=== PATIENT | male | born 1980 | race Caucasian/White ===

== ENCOUNTER 2017-12-04 09:53 | Emergency (ER) | payer BC, SELFPAY ==
[2017-12-04 09:54] VITALS: BP 153/91; PULSE 71; RESP 16; TEMP 36.4; O2SAT 97; BMI 26.1
--- NOTE | 2017-12-04 10:03 | RAD_ITS ---
STUDY: X-RAY - LEFT SHOULDER REASON FOR EXAM: Male, 37 years old. Slip and fall, injury T pain TECHNIQUE: 2 view(s) of the shoulder. COMPARISON: None. FINDINGS: There is anterior dislocation of the glenohumeral articulation. Normal acromioclavicular joint. Normal acromion. Normal humeral head and visualized proximal humerus. The soft tissue structures are unremarkable. Normal visualized pulmonary apex. RAD/Shoulder min 2 Views IMPRESSION: Anterior dislocation of the humerus head Electronically Signed: Nash Rowe MD at 10:40 EDT Tel , Service support ,
[2017-12-04] MEDS: Ondansetron 4 MG/2 ML Vial IV (10:13)
[2017-12-04] MEDS: Morphine 4 MG/ML Syringe IV (10:14)
[2017-12-04 10:36] VITALS: BP 125/81; BP 129/82; BP 132/85; BP 154/106; PULSE 57; PULSE 62; PULSE 64; PULSE 68; PULSE 71; PULSE 85; RESP 13; RESP 16; RESP 19; RESP 24; O2SAT 100; O2SAT 95; O2SAT 99
--- NOTE | 2017-12-04 10:50 | RAD_ITS ---
STUDY: X-RAY - LEFT SHOULDER REASON FOR EXAM: Male, 37 years old. Post reduction TECHNIQUE: 2 view(s) of the shoulder. COMPARISON: None. FINDINGS: Normal glenohumeral articulation. Normal acromioclavicular joint. Normal acromion. Hill-Sachs deformity of the humerus head. The soft tissue structures are unremarkable. Normal visualized pulmonary apex. RAD/Shoulder min 2 Views IMPRESSION: Reduced dislocation. Electronically Signed: Nash Rowe MD at 11:05 EDT Tel , Service support ,
[2017-12-04 10:55] VITALS: BP 120/95; PULSE 63; RESP 14; O2SAT 100; O2SAT 99
--- NOTE | 2017-12-04 10:56 | ED.VISSUMM ---
- ER Visit Summary Date of Service: 12/04/17 Chief Complaint: [Left shoulder injury] History of Present Illness: The patient is a 37 M [presents to the emergency department with an injury to his left shoulder that occurred when he slipped and fell going [place] at home. Patient is right-hand dominant. He denies any other injuries.] Physical Examination: [HEENT-PERRLA, EOMI. Cranial nerves II through XII grossly intact. TMs clear. Mucous membranes moist. No adenopathy. Cardiovascular-regular rate and rhythm without murmur or ectopy Lungs-clear to auscultation, chest wall stable without crepitus or subcu emphysema Abdomen-normoactive bowel sounds, soft, nontender, no rebound or rigidity, no peritoneal signs. Extremities-intact ?4, normal range of motion, normal pulses. Left shoulder-patient has obvious sulcus sign and decreased ability to move the shoulder at the glenohumeral joint. Patient neurovascular intact distally. Test Results: [X-rays of the left shoulder showed an anterior dislocation of the humeral head.] Emergency Department Course and Treatment: [Patient was consented for procedural sedation. Patient was given propofol a total of 200 mg with good sedation and the shoulder was easily reduced with some gentle traction. Postreduction x-ray showed good reduction of the shoulder joint.] Treatment Plan: [Patient will be placed in a sling and referred to orthopedics for follow-up] Disposition: [Discharged home in stable condition] Impression: [Left shoulder dislocation-reduced] This note was generated with [employer] [place] dictation software. It may contain incorrect words, spelling, and punctuation that were not noted in review of the chart prior to signing ED Disposition - Plan for ED Patient: Chief Complaint: Upper Extremity Injury Referrals: Care Physician,No Primary [Primary Care Provider] -
[2017-12-04] MEDS: Propofol 200 MG/20 ML Vial 100 MG IV BOLUS (10:57)
--- NOTE | 2017-12-04 10:59 | DCINST.ED_ITS ---
ED Disposition - Plan for ED Patient: Chief Complaint: Upper Extremity Injury Instructions: ED Dislocation Shoulder Redu Prescriptions: Hydrocodone/Acetaminophen [[place] 5-325 Tablet] 1 - 2 ea PO 4X/DAY PRN PRN 3 Days #12 tab PRN Reason: Pain Referrals: Care Physician,No Primary [Primary Care Provider] - Yuniel Gzuman MD [STAFF PHYSICIAN] - 3-5 Days
[2017-12-04 11:13] VITALS: BP 125/72; PULSE 69; RESP 15; O2SAT 98
== END 2017-12-04 11:14 | disposition home or self-care (01) ==
PROVIDERS: Emergency Provider Emergency Medicine
DX: S43.015A Anterior dislocation of left humerus, initial encounter (principal); W01.0XXA Fall on same level from slipping, tripping and stumbling without subsequent striking against object, initial encounter; Y93.9 Activity, unspecified; Y92.009 Unspecified place in unspecified non-institutional (private) residence as the place of occurrence of the external cause; Y99.9 Unspecified external cause status
CPT/HCPCS: 23650; 73030; 96374; 96375; 99285; J7030; A4216; J2405

== ENCOUNTER → 2023-07-12 | Outpatient (CLI) | payer MEDICAID, SELFPAY ==
[2023-07-12 15:49] LABS: Absolute Lymphocyte Count 1.93 X10^3/uL (0.83-4.51); Absolute Neutrophil Count 2.6 X10^3/uL (2.0-7.7); Basophil# 0.04 X10^3/uL; Basophil% 0.7 % (0-1); Eosinophil# 0.12 X10^3/uL; Eosinophils% 2.2 % (0-5); Hematocrit 45.3 % (40-54); Hemoglobin 14.7 g/dL (13.0-16.5); Lymphocyte # 1.93 X10^3/ul (0.83-4.51); Lymphocyte % 36.1 % (19-41); Mean Corp Hgb Conc 32.5 g/dL (32-36); Mean Corpuscular Hgb 30.4 pg (27.0-32.0); Mean Corpuscular Volume 93.6 fL (80-94); Mean Platelet Vol. 10.5 fl (6.2-12.0); Monocyte# 0.63 X10^3/uL; Monocyte% 11.8 % (0-10); NRBC Flagged by Analyzer 0 % (0-5); Neutrophil % 48.6 % (47-70); Platelet Count 288 K/mm3 (150-450); RBC Distribution Width CV 13.4 % (11.6-14.6); RBC Distribution Width SD 46.9 fl (35.1-43.9); Red Blood Count 4.84 M/mm3 (4.6-6.2); White Blood Count 5.4 K/mm3 (4.4-11.0)
[2023-07-12 16:42] LABS: ALB/GLOB Ratio 1.1 RATIO (0.9-2.4); AST(SGOT) 22 U/L (15-37); Alanine Aminotransfer ALT/SGPT 36 U/L (16-61); Albumin, Serum 3.9 g/dL (3.2-5.0); Alkaline Phosphatase 72 U/L (45-117); Anion Gap 2 (5-15); BUN 14 mg/dL (7-18); BUN/Creat Ratio 15.9 RATIO (10-20); Calcium,Total 9.2 mg/dL (8.5-10.1); Chloride 108 mmol/L (98-107); Cholesterol 247 mg/dL (200); Creatinine, Serum 0.88 mg/dL (0.70-1.30); EST Glomerular Filtration Rate 100 mL/min (>60); Est Glom Filt Rate - Afr Amer 121 mL/min (>60); Globulin 3.6 g/dL (2.2-4.2); Glucose 87 mg/dL (74-106); High Density Lipoprotein 66 mg/dL; Potassium 4.3 mmol/L (3.5-5.1); Protein, Total 7.5 g/dL (6.4-8.2); Sodium Level 138 mmol/L (136-145); Triglycerides 76 mg/dL; Very Low Density Lipoprotein 15 mg/dL (5-40)
== END | disposition home or self-care (01) ==
LOC: BIMLAB 12:21
PROVIDERS: PCP Internal Medicine; Referring Provider Internal Medicine; Visit Provider Internal Medicine
DX: Z00.00 Encounter for general adult medical examination without abnormal findings (principal)
CPT/HCPCS: 84153; 36415; 80053; 80061; 85025; G0103

== ENCOUNTER → 2023-07-25 | Outpatient (CLI) | payer MEDICAID, SELFPAY ==
--- NOTE | 2023-07-25 08:21 | RAD_ITS ---
STUDY: X-RAY - PELVIS AND RIGHT HIP REASON FOR EXAM: Male, 43 years old. Right groin pain. TECHNIQUE: 3 views of the pelvis and hip. COMPARISON: None. FINDINGS: There is a non-specific bowel gas pattern. Normal visualized soft tissue structures. Normal bilateral iliac wings, sacroiliac joints and visualized sacrum. Normal bilateral superior and inferior pubic rami. Normal pubic symphysis. Normal bilateral ischial tuberosities. Incidentally noted is mild lumbosacral spondylosis. Normal visualized femoral head. Normal acetabulum. Normal hip joint. RAD/HIP, UNI W/ Pelvis 2-3 Views IMPRESSION: Mild lumbosacral spondylosis. No other abnormality. Electronically Signed: Vahid Hubbard MD at 13:25 EST ,
--- NOTE | 2023-07-25 10:19 | NEURO ---
NCS and/or EMG Patient Report Ordering Doctor: Nic Samuels DATE OF SERVICE: 07/25/23 Clinical Summary: This is a 43 year old male presenting with symptoms of bilateral hand numbness. This EMG/NCS was performed to evaluate for right and left carpal tunnel syndrome. Nerve Conduction Studies Summary: The median-D2 SNAP distal latency was prolonged bilaterally. Otherwise, nerve conductions were within normal ranges in the bilateral upper extremities. Needle Examination Summary: Needle examination of select muscles of the bilateral upper extremities was normal. Impression: There is electrodiagnostic evidence of the following - 1) Mild, bilateral median mononeuropathies at the wrists (carpal tunnel syndrome), with sensory fiber demyelination Multi Select Codes Neurology Neurology Interp Codes: 83215-16 Musc test done w/n test comp (interp) (2) and 83934-29 Nrv cndj test 13/> studies (interp)
== END | disposition home or self-care (01) ==
LOC: PSN 08:20
PROVIDERS: PCP Internal Medicine; Referring Provider Internal Medicine; Visit Provider Internal Medicine
DX: R10.31 Right lower quadrant pain (principal); G56.03 Carpal tunnel syndrome, bilateral upper limbs
CPT/HCPCS: 73502; 95886; 95913

== ENCOUNTER → 2024-07-09 | Outpatient (CLI) | payer MEDICAID, SELFPAY ==
[2024-07-09 10:46] LABS: Absolute Lymphocyte Count 1.55 X10^3/uL (0.83-4.51); Absolute Neutrophil Count 3.8 X10^3/uL (2.0-7.7); Basophil# 0.03 X10^3/uL; Basophil% 0.5 % (0-1); Eosinophil# 0.13 X10^3/uL; Eosinophils% 2.1 % (0-5); Hematocrit 48.6 % (40-54); Hemoglobin 15.8 g/dL (13.0-16.5); Lymphocyte # 1.55 X10^3/ul (0.83-4.51); Lymphocyte % 24.8 % (19-41); Mean Corp Hgb Conc 32.5 g/dL (32-36); Mean Corpuscular Hgb 30.9 pg (27.0-32.0); Mean Corpuscular Volume 95.1 fL (80-94); Monocyte# 0.71 X10^3/uL; Monocyte% 11.3 % (0-10); NRBC Flagged by Analyzer 0 % (0-5); Neutrophil # 3.79 X10^3/uL (2.7-7.7); Neutrophil % 60.5 % (47-70); Platelet Count 283 K/mm3 (150-450); RBC Distribution Width SD 45.9 fl (35.1-43.9); Red Blood Count 5.11 M/mm3 (4.6-6.2); White Blood Count 6.3 K/mm3 (4.4-11.0)
[2024-07-09 11:09] LABS: ALB/GLOB Ratio 1.1 RATIO (0.9-2.4); AST(SGOT) 14 U/L (15-37); Alanine Aminotransfer ALT/SGPT 23 U/L (16-61); Alkaline Phosphatase 80 U/L (45-117); Anion Gap 6 (5-15); BUN 22 mg/dL (7-18); BUN/Creat Ratio 24.6 RATIO (10-20); Calcium,Total 9.2 mg/dL (8.5-10.1); Chloride 104 mmol/L (98-107); Cholesterol 267 mg/dL (200); EST Glomerular Filtration Rate 97 mL/min (>60); Est Glom Filt Rate - Afr Amer 118 mL/min (>60); Globulin 3.8 g/dL (2.2-4.2); Glucose 67 mg/dL (74-106); High Density Lipoprotein 69 mg/dL; Potassium 4.2 mmol/L (3.5-5.1); Protein, Total 7.8 g/dL (6.4-8.2); Sodium Level 137 mmol/L (136-145); Triglycerides 122 mg/dL; Very Low Density Lipoprotein 24 mg/dL (5-40)
[2024-07-14 08:11] LABS: Testosterone, % Free 1.72 % (1.50-4.20); Testosterone, Free 8.36 ng/dL (5.00-21.00); Testosterone, Total 486 ng/dL (264-916)
== END | disposition home or self-care (01) ==
LOC: LAB 09:22
PROVIDERS: PCP Internal Medicine; Referring Provider Internal Medicine; Visit Provider Internal Medicine
DX: Z00.00 Encounter for general adult medical examination without abnormal findings (principal); N52.9 Male erectile dysfunction, unspecified
CPT/HCPCS: 36415; 80053; 80061; 84402; 84403; 85025

== ENCOUNTER 2024-07-21 09:38 | Day surgery (SDC) | payer MEDICAID, SELFPAY ==
[2024-07-21] VITALS (8 sets, daily range): BP systolic 93–119; BP diastolic 75–84; PULSE 65–78; RESP 16–17; TEMP 36.1–36.4; O2SAT 96–100; BMI 27.8
--- NOTE | 2024-07-21 10:15 | PCM.PRE.AN2 ---
ASA Classification* ASA Classification ASA Classification: 2 Assessment & Plan Anesthesia* Anesthesia Assessment Anesthesia Assessment: Discussed sedation and/or anesthesia options, risks, benefits, and alternatives with patient/parents/legal guardian/POA. Questions invited. The patient/parents/legal guardian/POA seems to understand and agrees to proceed with anesthesia plan. Reviewed the physical assessment, medical history, allergy history and patient home medications list prior to surgery/procedure/anesthetic and documented any changes. Performed airway and anesthesia risk assessments. Anesthesia Type Anesthesia Type: MAC Anesthesia Focused Assessment* Temperature: 97 F Pulse Rate: 65 Blood Pressure: 114/81 Respiratory Rate: 17 Pulse Ox: 100 Airway Assessment Mouth opens: >3 cm Mallampati Score: II Focused Labs Anesthesia Preop lab: CBC WBC 6.3 K/mm3 (4.4-11.0) 07/09/24 09:24 RBC 5.11 M/mm3 (4.6-6.2) 07/09/24 09:24 Hgb 15.8 g/dL (13.0-16.5) 07/09/24 09:24 Hct 48.6 % (40-54) 07/09/24 09:24 Plt Count 283 K/mm3 (150-450) 07/09/24 09:24 CHEMISTRY Potassium 4.2 mmol/L (3.5-5.1) 07/09/24 09:24 Sodium 137 mmol/L (136-145) 07/09/24 09:24 BUN 22 mg/dL (7-18) H 07/09/24 09:24 Creatinine 0.90 mg/dL (0.70-1.30) 07/09/24 09:24 Glucose 67 mg/dL (74-106) L 07/09/24 09:24 COAG Pre-Assessment Diagnosis/Proposed Procedure Planned Operative Procedure(s): RIGHT OPEN CARPAL TUNNEL RELEASE Anesthesia History Anesthesia History - product/industry consultant: Anesthesia History - product/industry consultant Hx Hospitalization No 07/13/24 09:24 Any Problems With Anesthesia No 07/13/24 09:24 Cholinesterase deficiency No 07/13/24 09:24 You/Your Family Experience No 07/13/24 09:24 fever (hyperthermia) with Relationship Recent Exposure to Contagious No 07/21/24 10:08 Disease Does patient have nerve No 07/13/24 09:24 stimulator Patient instructed to have device shut off --Does patient have Pacemaker No 07/21/24 10:08 or ICD? When Was Last Pacemaker Check QUESTION #4 FULL TEXT: You/Your Family Experience fever (hyperthermia) with Anesthesia Last Oral Intake Last Oral intake: Last Oral Intake NPO since 00:00 07/21/24 10:08 Meds taken in AM with sips of No 07/21/24 10:08 water? Meds patient instructed to take am of surgery PONV PONV - product/industry consultant: PONV - product/industry consultant Female No 07/13/24 09:24 HX of Motion Sickness Yes 07/13/24 09:24 HX of N/V After Surgery No 07/13/24 09:24 Non-Smoker Yes 07/13/24 09:24 Duration of Surgery greater No 07/13/24 09:24 than 60 minutes Number of Risk Factors 2 07/13/24 09:24 PONV Score Moderate Risk 07/13/24 09:24 Height & Weight Height & Weight: Anesthesia: Height & Weight Height 6 ft 07/21/24 10:08 Weight: 93 kg 07/21/24 10:08 Body Mass Index (BMI) 27.8 07/21/24 10:08 Respiratory Assessment Respiratory Assessment - product/industry consultant: Respiratory Tract Infection Hx - product/industry consultant Hx Respiratory Tract Infection No 07/13/24 09:24 STOP Sleep Apnea STOP Sleep Apnea - product/industry consultant: STOP Sleep Apnea - product/industry consultant Hx Hypertension No 07/13/24 09:24 Hx Sleep Apnea No 07/13/24 09:24 CPAP BIPAP Do you snore loudly (louder No 07/13/24 09:24 than talking or can be heard Do you often feel tired/ Yes 07/13/24 09:24 fatigued/ sleepy during daytime? Has anyone observed you stop No 07/13/24 09:24 breathing during sleep? STOP Results Negative 07/13/24 09:24 QUESTION #5 FULL TEXT : Do you snore loudly (louder than talking or can be heard through closed doors)? 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 Specify any problems Hx of Preganancy in last 3 N/A 07/13/24 09:24 Months Nurse Filling Out Transfusion DSCHRIBER 07/13/24 09:24 & Questions: Date: 07/13/24 07/13/24 09:24 Time: 09:26 07/13/24 09:24 Patient unable to answer at this time (ie. confused, unrespo /Reproduction History /Reproductive History - product/industry consultant: /Reproductive Hx- product/industry consultant Hx Now No 07/13/24 09:24 Gestational Age (in weeks): EDC: Hx Hx Para Hx Section SAB No 07/13/24 09:24 Active Medications Active Medications: Current Medications Generic Name Dose Route Start Last Admin Trade Name Freq PRN Reason Stop Dose Admin Cefazolin Sodium 2 gm/ N/A 20 mls @ 400 mls/hr 07/21/24 11:15 IV 07/21/24 11:17 PREOP ONE PFSH Medical History Loss of hearing Depression Anxiety Marijuana use Alcohol use Restless legs Back pain History of pain when walking Former smoker Anal or rectal pain Colon cancer screening Preventative health care Right groin pain Bilateral carpal tunnel syndrome Scoliosis Seasonal allergies Home Medications ?Medication ?Instructions ?Recorded ?Last Taken ?Type sertraline 50 mg tablet 50 mg PO QDAY #30 tabs 07/09/24 07/18/24 Rx ibuprofen 200 mg tablet (Advil) 400 mg PO Q8H PRN pain 07/13/24 Unknown History sildenafil 25 mg tablet (Viagra) 25 mg PO QDAY PRN sexual activity 07/14/24 Unknown Rx #10 tabs Allergy/AdvReac Type Severity Reaction Status Date / Time poison seth extract Allergy Severe Rash Verified 07/21/24 10:02 Surgical History H/O Spinal surgery History of vasectomy Social History adopted: No household members: significant other number of children: 1 current occupational status: employed 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 pets and animals: Yes pets and animals: cat(s), dog(s) and fish sexually active: Yes Smoking Status: Former smoker quit date: 08/04/08 Tobacco: How many years used: 10 alcohol intake: current alcohol intake frequency: a few times a week Alcohol type: beer, wine and hard liquor substance use type: marijuana caffeine: Yes (2-3) Type: coffee what type of physical activity do you participate in: weight training and other details: LABOR frequency: 3-4 times per week seatbelt use: always do you feel safe at home: Yes Review of Systems (Anesthesia) ROS Narrative System reviewed and no additional complaints, except as documented.
--- NOTE | 2024-07-21 11:00 | HP.PCM_ITS ---
History and Physical Date of Admission: 07/21/24 [facility] [address] [place] [address] OFFICE VISIT Date of Service: 06/15/24 MR#: [id number] Acct: [id number] Patient: ANABEL MORTENSEN Rep #: [id number] : 1980 Provider: Dr. Abdiel Douglas DO Age/Sex: 44/M Location: [facility] Status: Signed Intake Vital Signs 02/05/2412:26 Height 6 ft Weight: 209 lb 8 oz BMI 28.4 BP 124/80 H Blood Pressure Location Lt brachial Position Sitting Respiration 16 Pulse 67 Pulse Source Monitor Temp 97.6 F L Temp Source Temporal Pulse Oximetry (%) 97 Oxygen Delivery Method room air Intake Visit Reasons: right wrist Is patient in pain?: Yes Allergies poison seth extract Allergy (Severe, Verified 06/15/24 09:42) Rash Medications ?Medication ?Instructions ?Recorded ?Confirmed ?Type tadalafil 5 mg tablet 5 mg PO DAILY PRN sexual activity 02/05/24 06/15/24 Rx #12 tabs PFSH Medical History Anal or rectal pain Colon cancer screening Preventative health care Right groin pain Bilateral carpal tunnel syndrome Scoliosis Seasonal allergies Surgical History History of vasectomy Social History Smoking Status: Former smoker quit date: 08/04/08 alcohol intake: current alcohol intake frequency: a few times a week Alcohol type: beer, wine and hard liquor substance use type: does not use what type of physical activity do you participate in: weight training and other details: LABOR frequency: 3-4 times per week seatbelt use: always do you feel safe at home: Yes HPI HPI Details: Patient was informed that today's visit charges, even if billed to insurance may still be the patient's responsibility to pay. ANABEL MORTENSEN, is a 44 M who presents to the office today via telephone: Patient would like to proceed with open carpal tunnel release symptoms have not improved he is actually having quite a bit of pain in his right wrist after the injection , that he has not experienced in the past, that has not improved he denies any redness fevers or chills. 06/05/[address] Carmona: here today for bilateral carpal tunnel syndrome. The patient has had now [address] Douglas. Last time was in January. had it prior in the right, it worked but wore off. wants to try injection on both sides. has to pain houses. RHD. all fingers go numb, mostly at night wakes up at night. everything tingly. positive flick sign. feels clumsy. Patient received bilateral carpal tunnel injections and was scheduled for a endoscopic carpal tunnel release. 01/29/2024 office visit: 44 year old M here today for bilateral hand complaints Last office visit August 28, 2023 patient was having carpal tunnel symptoms he did have an EMG which demonstrated bilateral carpal tunnel mild. At that time he had already tried 3 months of bracing at night we discussed nerve glide exercises anti-inflammatories injections or carpal tunnel release, he wished to proceed with ibuprofen 600 mg 3 times daily and nerve glide exercises at that time. Patient is here today requesting BL hand injections. 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 He states that the pain has started to wake him up at night along with he has noticed more numbness and tingling. He states that his right hand is worse. Exam Details: Details:: Exam was limited due to phone visit with no video. 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 Wrist benefits of surgery were reviewed including risk of bleeding infection nerve artery tissue damage need for further surgery continued pain incisional hypersensitivity continued symptoms and pillar pain for up to several months after surgery. He was instructed about the postoperative restrictions claus ghtbearing ,he was instructed to hold NSAIDs for 7 days prior to surgery tentative surgery date July 21, 2024. I do not want to know why he is having such continued severe pain after his last injection. I have examined the patient and the H&P has been reviewed. There are no clinical changes since date of exam.
[2024-07-21] MEDS: Cefazolin 2 GM in Syringe IV (11:15)
[2024-07-21] MEDS: Bupiv/Epi 0.25% 30 ML Vial (11:42)
--- NOTE | 2024-07-21 11:55 | PCM.POST.ANE ---
Anesthesia: Postop Eval I Current Vital Signs Temperature: 97.6 F Pulse Rate: 68 Blood Pressure: 110/75 Respiratory Rate: 16 Pulse Ox: 97 Oxygen Delivery Method: Room Air Assessment Airway patent: Yes Spontaneous unlabored respirations: Yes Mental status: Awake and Calm nausea: No Vomiting: No Anesthesia Complication: No Fluid Hydration Crystalloid volume administer (ml): 30 Total IV fluid infused: 30 Progress Note Anesthesia document: Postop Eval 1 completed: Yes
--- NOTE | 2024-07-21 11:56 | OP.PCM_ITS ---
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 [employer] Vehicle Operator: Adriel Moeller Tasks completed by nurse first aid: Opening & closing Type of Anesthesia: Local and MAC RN Documented Start/Stop Times: Operation Date: 07/21/24 11:15 Case Time Into Pre-Op 07/21/24 09:50 Out of Pre-Op 07/21/24 11:10 Anesthesia Start 07/21/24 11:14 Into Room 07/21/24 11:14 Procedure Start 07/21/24 11:33 Procedure End 07/21/24 11:48 Anesthesia End 07/21/24 11:50 Out of Room 07/21/24 11:50 Into Recovery Procedure Start Time: 11:33 Procedure Stop Time: 11:48 Select all DRAINS/GRAFTS/IMPLANTS that apply: None Estimated Blood Loss: 0 Specimen collected: No Description of surgery: Preoperative diagnosis; right carpal tunnel syndrome Postoperative diagnosis; same Procedure: Right open carpal tunnel release Anesthesia: Local with MAC Tourniquet time; 10 minutes 250 mm Hg Complications: None Indication for procedure; This is a 44-year-old male with long-standing symptoms consistent with carpal tunnel syndrome the patient did have electrodiagnostic evidence of this and has failed conservative treatment. Risks benefits and alternatives were reviewed including risks of bleeding infection nerve artery tissue damage need for further surgery and continued pain and symptoms, hypersensitivity to scar and Pillar pain. Procedure; The patient was met in the preoperative holding area the operative extremity was identified by both patient and physician and was marked the patient was met by anesthesia and brought back to the operating room and transferred to the operating table in the supine position. Anesthesia was started. A well-padded tourniquet was placed on the operative upper extremity. The patient was prepped and draped in the usual sterile fashion. A timeout was called to ensure the proper patient procedure and extremity were being contemplated. 0.5 percent lidocaine with epinephrine was injected into the incisional area. An Esmarch was used to exsanguinate the extremity. The tourniquet was inflated to 250 mmHg. A midline incision was made with a 15 blade scalpel between the thenar and hypothenar eminence. This was carried down through the skin and subcutaneous tissue. Joe retractors were then used, a deep blade scalpel was used to make a deep incision in the palmar aponeurosis. The joe retractors were then placed deep to this and the transverse carpal ligament was identified a perforation was made with a scalpel and a Littler scissors were used to complete the release of the transverse carpal ligament distally under direct visualization with the tips facing ulnarly until the perivascular fat was reached. Then turning our attention proximally using a tension slide technique the proximal extent of the transverse carpal ligament was released . There was noted to be significant thickening and hypertrophy of the transverse carpal ligament. The wound was thoroughly irrigated and was closed with 4-0 nylon vertical mattress stitches. Dressing was applied in the form of xeroform 4 x 4, web roll and an tomasa wrap. Tourniquet was let down there is no intraoperative complications patient tolerated the procedure well and was transferred to the PACU. All counts were correct. Surgical Findings: Hypertrophied transverse carpal ligament Complications Complications: No
--- NOTE | 2024-07-21 11:57 | DCINST_ITS ---
Discharge Instructions Diet Discharge Diet: No restrictions Dressing / Incision Call your doctor if you observe: Shortness of breath and Chest pain Additional Dressing/Incision Instructions:: Ice and elevate operative extremity next 72 hours. Keep dressing on clean and dry for 48 hours then may remove and allow warm soapy water to rinse over incision but do not submerge until sutures are out. Then apply bandaid over incision and change daily. encourage finger range of motion. Not lift more than 1/2 pound. Minimize narcotic use only as needed and directed, may use OTC NSAID and Tylenol to supplement/substitute for pain control. Follow Up Care Please Follow Up With: Abdiel Douglas DO When: 2 weeks Test Results: Test results from this visit will be discussed in further detail at your follow- up appointment, if applicable. Discharge Plan Admission Primary Reason for Your Visit: Right carpal tunnel release Attending Provider: Abdiel Douglas Primary Care Provider: Nic Samuels Instructions Print Language: [place] Discharge Orders/Prescriptions Prescriptions: New oxycodone 5 mg tablet 5 - 10 mg PO Q4H PRN (Reason: pain) 3 Days Qty: 10 0RF Continued sertraline 50 mg tablet 50 mg PO QDAY Qty: 30 1RF Rx Instructions: take 0.5 tablets daily for 14 days then take 1 tablet daily ibuprofen [Advil] 200 mg tablet 400 mg PO Q8H PRN (Reason: pain) sildenafil [Viagra] 25 mg tablet 25 mg PO QDAY PRN (Reason: sexual activity) Qty: 10 0RF Rx Instructions: administer 30 minutes to 4 hours before activity Referrals / Follow Up: Nic Samuels MD [Primary Care Provider] - Disposition Disposition (needs filled in before D/C Order can be placed): Home, Self Care
--- NOTE | 2024-07-21 12:42 | POSTOPAN2_ITS ---
Anesthesia Postop Eval I Sum Postop Eval Completion status Anesthesia document: Postop Eval 1 completed: Yes Anesthesia Postop Eval I Summary Anesthesia Postop Eval I Summary: Anesthesia Postop Eval I: Assessment Summary Airway patent Yes 07/21/24 11:56 APPLICATION DEVELOPMENT CONSULTANT.MARGIEOBBrunilda Spontaneous unlabored Yes 07/21/24 11:56 APPLICATION DEVELOPMENT CONSULTANT.JENNIFER respirations Mental status Awake,Calm 07/21/24 11:56 APPLICATION DEVELOPMENT CONSULTANT.JENNIFER nausea No 07/21/24 11:56 APPLICATION DEVELOPMENT CONSULTANT.JENNIFER Vomiting No 07/21/24 11:56 APPLICATION DEVELOPMENT CONSULTANT.JENNIFER Anesthesia Postop Eval I: Fluid Summary Crystalloid volume administer 30 07/21/24 11:56 APPLICATION DEVELOPMENT CONSULTANT.MARGIEOBY (ml) Colloids volume administered ( ml) Blood Product volume administered (ml) Total IV fluid infused 30 07/21/24 11:56 APPLICATION DEVELOPMENT CONSULTANT.JENNIFER Anesthesia Postop Eval I: Summary Notes Anesthesia Complication No 07/21/24 11:56 APPLICATION DEVELOPMENT CONSULTANT.JENNIFER Anesthesia Complication Comment: Post-operative progress note Anesthesia: Postop Eval II Evaluation Mental status: Awake Pain Level: 0 nausea: No Vomiting: No
--- NOTE | 2024-07-21 12:42 | PCM.POSTANE2 ---
Anesthesia Postop Eval I Sum Postop Eval Completion status Anesthesia document: Postop Eval 1 completed: Yes Anesthesia Postop Eval I Summary Anesthesia Postop Eval I Summary: Anesthesia Postop Eval I: Assessment Summary Airway patent Yes 07/21/24 11:56 RAILROAD SUPERVISOR OF [email or web address] Spontaneous unlabored Yes 07/21/24 11:56 RAILROAD SUPERVISOR [employer] [email or web address] respirations Mental status Awake,Calm 07/21/24 11:56 RAILROAD SUPERVISOR [employer] ENGINES.JENNIFER nausea No 07/21/24 11:56 RAILROAD SUPERVISOR [email or web address].[email or web address] Vomiting No 07/21/24 11:56 RAILROAD SUPERVISOR OF [email or web address].[email or web address] Anesthesia Postop Eval I: Fluid Summary Crystalloid volume administer 30 07/21/24 11:56 RAILROAD SUPERVISOR OF ENGINES.[email or web address] (ml) Colloids volume administered ( ml) Blood Product volume administered (ml) Total IV fluid infused 30 07/21/24 11:56 RAILROAD SUPERVISOR [employer] ENGINES.[email or web address] Anesthesia Postop Eval I: Summary Notes Anesthesia Complication No 07/21/24 11:56 RAILROAD SUPERVISOR OF ENGINES.[email or web address] Anesthesia Complication Comment: Post-operative progress note Anesthesia: Postop Eval II Evaluation Mental status: Awake Pain Level: 0 nausea: No Vomiting: No
== END 2024-07-21 12:35 | disposition home or self-care (01) ==
LOC: SDC 09:38 → AC 11:05
PROVIDERS: PCP Internal Medicine; Referring Provider Orthopaedic Surgery; Visit Provider Orthopaedic Surgery
PROC: (CPT 64721; principal; 2024-07-21 11:00)
DX: G56.03 Carpal tunnel syndrome, bilateral upper limbs (principal); F41.9 Anxiety disorder, unspecified; F32.A Depression, unspecified; Z87.891 Personal history of nicotine dependence; Z79.899 Other long term (current) drug therapy
CPT/HCPCS: 64721; 01810; A4216; J2405

== ENCOUNTER 2024-09-15 11:31 | Day surgery (SDC) | payer MEDICAID, SELFPAY ==
[2024-09-15] VITALS (8 sets, daily range): BP systolic 103–137; BP diastolic 76–100; PULSE 62–79; RESP 16–18; TEMP 36.2–37.1; O2SAT 95–100; BMI 27.5
--- NOTE | 2024-09-15 12:25 | PCM.PRE.AN2 ---
ASA Classification* ASA Classification ASA Classification: 2 Assessment & Plan Anesthesia* Anesthesia Assessment Anesthesia Assessment: Discussed sedation and/or anesthesia options, risks, benefits, and alternatives with patient/parents/legal guardian/POA. Questions invited. The patient/parents/legal guardian/POA seems to understand and agrees to proceed with anesthesia plan. Reviewed the physical assessment, medical history, allergy history and patient home medications list prior to surgery/procedure/anesthetic and documented any changes. Performed airway and anesthesia risk assessments. Anesthesia Type Anesthesia Type: MAC History Source History Obtained from:: Patient and Chart Anesthesia Focused Assessment* Temperature: 97.7 F Pulse Rate: 62 Blood Pressure: 137/84 Respiratory Rate: 16 Pulse Ox: 100 Oxygen Delivery Method: Room Air Airway Assessment Mouth opens: >3 cm Mallampati Score: III Teeth Condition: Intact (Pt has a ring in the upper gums.) Neck Range of motion (ROM): Limited ROM Focused Labs Anesthesia Preop lab: CBC WBC 6.3 K/mm3 (4.4-11.0) 07/09/24 09:24 07/09/24 RBC 5.11 M/mm3 (4.6-6.2) 07/09/24 09:24 07/09/24 Hgb 15.8 g/dL (13.0-16.5) 07/09/24 09:24 07/09/24 Hct 48.6 % (40-54) 07/09/24 09:24 07/09/24 Plt Count 283 K/mm3 (150-450) 07/09/24 09:24 07/09/24 CHEMISTRY Potassium 4.2 mmol/L (3.5-5.1) 07/09/24 09:24 07/09/24 Sodium 137 mmol/L (136-145) 07/09/24 09:24 07/09/24 BUN 22 mg/dL (7-18) H 07/09/24 09:24 07/09/24 Creatinine 0.90 mg/dL (0.70-1.30) 07/09/24 09:24 07/09/24 Glucose 67 mg/dL (74-106) L 07/09/24 09:24 07/09/24 COAG Pre-Assessment Diagnosis/Proposed Procedure Planned Operative Procedure(s): COLONOSCOPY Anesthesia History 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 When Was Last Pacemaker Check QUESTION #4 FULL TEXT: You/Your Family Experience fever (hyperthermia) with Anesthesia Last Oral Intake Last Oral intake: Last Oral Intake NPO since :09/15/24 11:51 Meds taken in AM with sips of No 09/15/24 11:51 water? Meds patient instructed to take am of surgery Any additional information?: Yes NPO since: : (Patient Gatorade at 9:30 AM.) PONV PONV - sales performance analyst: PONV - sales performance analyst Female No 09/10/24 13:42 HX of Motion Sickness Yes 09/10/24 13:42 HX of N/V After Surgery No 09/10/24 13:42 Non-Smoker Yes 09/10/24 13:42 Duration of Surgery greater No 09/10/24 13:42 than 60 minutes Number of Risk Factors 2 09/10/24 13:42 PONV Score Moderate Risk 09/10/24 13:42 Height & Weight Height & Weight: Anesthesia: Height & Weight Height 6 ft 09/15/24 11:51 Weight: 92 kg 09/15/24 11:51 Body Mass Index (BMI) 27.5 09/15/24 11:51 Respiratory Assessment Respiratory Assessment - sales performance analyst: Respiratory Tract Infection Hx - sales performance analyst Hx Respiratory Tract Infection No 09/10/24 13:42 STOP Sleep Apnea STOP Sleep Apnea - sales performance analyst: STOP Sleep Apnea - sales performance analyst Hx Hypertension No 09/10/24 13:42 Hx Sleep Apnea No 09/10/24 13:42 CPAP BIPAP Do you snore loudly (louder No 09/10/24 13:42 than talking or can be heard Do you often feel tired/ No 09/10/24 13:42 fatigued/ sleepy during daytime? Has anyone observed you stop No 09/10/24 13:42 breathing during sleep? STOP Results Negative 09/10/24 13:42 QUESTION #5 FULL TEXT : Do you snore loudly (louder than talking or can be heard through closed doors)? Tobacco Use History Tobacco Use History - sales performance analyst: Tobacco Use History - sales performance analyst Tobacco Use Smoking Status Former smoker 09/10/24 13:42 Hx Tobacco Use No 09/10/24 13:42 Years Smoking Packs Smoked per Day Smoking Cessation Date was No - quit smoking greater 09/10/24 13:42 within the last 15 years than 15 years ago Hx Smoking Cessation Date 08/05/04 09/10/24 13:42 Hx Smoking Cessation No 09/10/24 13:42 Counseling Hematologic Medial History Hematologic Hx - sales performance analyst: Hematologic Medical Hx - special equipment technician Hx of Blood Transfusion No 09/10/24 13:42 Hx of Transfusion in last 3 No 09/10/24 13:42 Months Date of Last Transfusion (if within last 3 months) Ever experience any problems No 09/10/24 13:42 with transfusion(s)? Specify any problems Hx of Preganancy in last 3 N/A 09/10/24 13:42 Months Nurse Filling Out Transfusion MGRIFFITH 09/10/24 13:42 & Questions: Date: 09/10/24 09/10/24 13:42 Time: 13:44 09/10/24 13:42 Patient unable to answer at this time (ie. confused, unrespo /Reproduction History /Reproductive History - sales performance analyst: /Reproductive Hx- sales performance analyst Hx Now Gestational Age (in weeks): EDC: Hx Hx Para Hx Section SAB No 07/13/24 09:24 PFSH Medical History Arthritis High cholesterol Heartburn History of closed shoulder dislocation Loss of hearing Depression Anxiety Marijuana use Alcohol use Restless legs Back pain History of pain when walking Former smoker Anal or rectal pain Colon cancer screening Preventative health care Right groin pain Bilateral carpal tunnel syndrome Scoliosis Seasonal allergies Home Medications ?Medication ?Instructions ?Recorded ?Last Taken ?Type ibuprofen 200 mg tablet (Advil) 400 mg PO Q8H PRN pain 07/13/24 09/13/24 History sildenafil 25 mg tablet (Viagra) 25 mg PO QDAY PRN sexual activity 08/26/24 09/10/24 Rx #30 tabs escitalopram oxalate 10 mg tablet 10 mg PO QDAY #30 tabs 09/03/24 09/13/24 Rx Allergy/AdvReac Type Severity Reaction Status Date / Time poison seth extract Allergy Severe Rash Verified 09/15/24 11:49 Surgical History History of carpal tunnel repair H/O Spinal surgery History of vasectomy Social History adopted: No household members: significant other number of children: 1 current occupational status: employed 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 pets and animals: Yes pets and animals: cat(s), dog(s) and fish sexually active: Yes Smoking Status: Former smoker quit date: 08/04/08 Tobacco: How many years used: 10 alcohol intake: current alcohol intake frequency: a few times a week Alcohol type: beer, wine and hard liquor substance use type: marijuana caffeine: Yes (2-3) Type: coffee what type of physical activity do you participate in: weight training and other details: LABOR frequency: 3-4 times per week seatbelt use: always do you feel safe at home: Yes Review of Systems (Anesthesia) ROS Narrative System reviewed and no additional complaints, except as documented.
--- NOTE | 2024-09-15 12:30 | COLBX_PTH ---
PATIENT: ANABEL MORTENSEN LOC: EN U#:[id number] AGE/SX: 44/M ROOM: RE09/15/[address]: Dr. Shaheed Hays DO : 1980 BED: DIS: 09/15/2024 SPEC #: [id number] RECD: 09/16/24 07:23 STATUS: DERICK CARO #: [id number] HARRY: 09/15/24 12:[address]: Shaheed Hays DEPT: SURGICAL PATHOLOGY RECD BY: Aleshia Day ENTERED: 09/16/24 09:26 SP TYPE: COLON BX OTHR DR: Dr. Nic Samuels MD Tissues: Rectum, NOS Procedures: Surgery Specimen Level IV HEADER OPERATION: Colonoscopy with biopsy PRE-OP DIAGNOSIS: Colon screening TISSUE SUBMITTED: Rectal polyp biopsy MICROSCOPIC DIAGNOSIS Rectal polyp, biopsy: Hyperplastic polyp. 09/17/2024 MICROSCOPIC DESCRIPTION Slides are reviewed. GROSS DESCRIPTION Received in fixative is one container labeled with the patient's name and designated Rectal polyp biopsy. The specimen consists of one irregular fragment of light borjas soft tissue that measures 0.3 x 0.2 x 0.1 cm. The specimen is totally submitted in one cassette. 09/16/2024 TC:1 CPT:80786
--- NOTE | 2024-09-15 12:49 | PCM.HP.STD ---
HPI - General General Date of Admission: 09/15/24 Date of Service: 09/15/24 Chief Complaint: Screening colonoscopy HPI Narrative ANABEL MORTENSEN, is a 44 M who presents today for screening colonoscopy. He is never had a colonoscopy in the past. He is not have any problems at this time. He does not take any medicines on a daily basis except for Celexa. [facility]LY [facility] Medical History Arthritis High cholesterol Heartburn History of closed shoulder dislocation Loss of hearing Depression Anxiety Marijuana use Alcohol use Restless legs Back pain History of pain when walking Former smoker Anal or rectal pain Colon cancer screening Preventative health care Right groin pain Bilateral carpal tunnel syndrome Scoliosis Seasonal allergies Home Medications ?Medication ?Instructions ?Recorded ?Last Taken ?Type ibuprofen 200 mg tablet (Advil) 400 mg PO Q8H PRN pain 07/13/24 09/13/24 History sildenafil 25 mg tablet (Viagra) 25 mg PO QDAY PRN sexual activity 08/26/24 09/10/24 Rx #30 tabs escitalopram oxalate 10 mg tablet 10 mg PO QDAY #30 tabs 09/03/24 09/13/24 Rx Allergy/AdvReac Type Severity Reaction Status Date / Time poison seth extract Allergy Severe Rash Verified 09/15/24 11:49 Surgical History History of carpal tunnel repair H/O Spinal surgery History of vasectomy Social History adopted: No household members: significant other number of children: 1 current occupational status: employed 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 pets and animals: Yes pets and animals: cat(s), dog(s) and fish sexually active: Yes Smoking Status: Former smoker quit date: 08/04/08 Tobacco: How many years used: 10 alcohol intake: current alcohol intake frequency: a few times a week Alcohol type: beer, wine and hard liquor substance use type: marijuana caffeine: Yes (2-3) Type: coffee what type of physical activity do you participate in: weight training and other details: LABOR frequency: 3-4 times per week seatbelt use: always do you feel safe at home: Yes ROS Constitutional Constitutional: Denies fatigue, fever(s), poor appetite, weight gain or weight loss Gastrointestinal Gastrointestinal: Denies belching, bloating, change in bowel habits, change in stool character, chewing difficulty, coffee ground emesis, constipation, cramping, diarrhea, dyspepsia, dysphagia, early satiety, excessive flatus, fecal incontinence, heartburn, hematemesis, hematochezia, hemorrhoids, loose stools, melena, nausea, odynophagia, rectal bleeding, tenesmus, vomiting or weight changes Vital Signs Vital Signs Vital Signs: 09/15/24 11:51 09/15/24 11:51 09/15/24 12:34 Temperature 97.7 F L 97.7 F L Temperature Source Temporal Pulse Rate 62 62 Respiratory Rate 16 16 Respiratory Pattern Normal Blood Pressure 137/84 H 137/84 H Blood Pressure Mean 101 Blood Pressure Source Monitor Blood Pressure Position Sitting Blood Pressure Location Right Arm Pulse Ox 100 100 Oxygen Delivery Method Room Air Room Air Weight Weight: 202 lb 13.204 oz Body Mass Index (BMI) 27.5 Physical Exam Const alert, oriented x3, no apparent distress and healthy appearing General Appearance: cooperative GI normal to inspection, nondistended, normoactive bowel sounds, soft to palpation, non-tender and non-distended Percussion: normal to percussion Rectal Exam: deferred Assessment & Plan Assessment/Plan (1) Colon cancer screening: PLAN: He was explained alternatives, benefits, risk including not withstanding bleeding, infection, sepsis, perforation, need for emergent urgent . He will have an ASA of 3.
--- NOTE | 2024-09-15 13:35 | OP.CCLET_ITS ---
09/15/2024 Nic Samuels MD [address] [place] [address] [place] [address] Re : Colonoscopy procedure for Raimundo Schroeder Dear Dr. Samuels This procedure was performed on Sunday, September 15, 2024. My impressions and recommendations are as follows: Impressions : - Anal fissure found on perianal exam. - Non-bleeding internal hemorrhoids. - One 3 mm polyp in the rectum, removed with a cold biopsy forceps. Resected and retrieved. Biopsied. Recommendations : - Repeat colonoscopy in 5 years for surveillance. - Continue present medications. My findings are described in the full procedure note, which is enclosed. If I can be of further assistance, please feel free to contact me at . Sincerely, Shaheed Friend, 09/15/2024 1:34:58 PM This report has been signed electronically.
--- NOTE | 2024-09-15 13:35 | OP.COLON_ITS ---
Patient Name: Raimundo Schroeder Procedure Date: 09/15/2024 12:57 PM Date of : 1980 Age: 44 Procedure: Colonoscopy Indications: Screening for colorectal malignant neoplasm Providers: Shaheed Hays DO Referring MD: Nic Samuels MD Medicines: Monitored Anesthesia Care Patient Profile: This is a 44 year old male. Refer to note in patient chart for documentation of history and physical. Last Colonoscopy: none. The patient's first colonoscopy is today. Last Colonoscopy: none. The patient's first colonoscopy is today. Complications: No immediate complications. Procedure: Pre-Anesthesia Assessment: - Prior to the procedure, a History and Physical was performed, and patient medications and allergies were reviewed. The patient is competent. The risks and benefits of the procedure and the sedation options and risks were discussed with the patient. All questions were answered and informed consent was obtained. Patient identification and proposed procedure were verified by the physician in the pre-procedure area. Mental Status Examination: alert and oriented. Airway Examination: normal oropharyngeal airway and neck mobility. Respiratory Examination: clear to auscultation. CV Examination: normal. Prophylactic Antibiotics: The patient does not require prophylactic antibiotics. Prior Anticoagulants: The patient has taken no anticoagulant or antiplatelet agents. ASA Grade Assessment: II - A patient with mild systemic disease. After reviewing the risks and benefits, the patient was deemed in satisfactory condition to undergo the procedure. The anesthesia plan was to use monitored anesthesia care (MAC). Immediately prior to administration of medications, the patient was re-assessed for adequacy to receive sedatives. The heart rate, respiratory rate, oxygen saturations, blood pressure, adequacy of pulmonary ventilation, and response to care were monitored throughout the procedure. The physical status of the patient was re-assessed after the procedure. After I obtained informed consent, the scope was passed under direct vision. Throughout the procedure, the patient's blood pressure, pulse, and oxygen saturations were monitored continuously. The Colonoscope was introduced through the anus and advanced to the cecum, identified by appendiceal orifice and ileocecal valve. The colonoscopy was performed without difficulty. The patient tolerated the procedure well. The quality of the bowel preparation was adequate. The ileocecal valve, appendiceal orifice, and rectum were photographed. Findings: An anal fissure was found on perianal exam. The perianal and digital rectal examinations were normal. Non-bleeding internal hemorrhoids were found during retroflexion. The hemorrhoids were Grade I (internal hemorrhoids that do not prolapse). A 3 mm polyp was found in the rectum. The polyp was sessile. The polyp was removed with a cold biopsy forceps. Resection and retrieval were complete. Verification of patient identification for the specimen was done. Biopsies were taken with a cold forceps for histology. Verification of patient identification for the specimen was done. Estimated blood loss was minimal. Impression: - Anal fissure found on perianal exam. - Non-bleeding internal hemorrhoids. - One 3 mm polyp in the rectum, removed with a cold biopsy forceps. Resected and retrieved. Biopsied. Recommendation: - Repeat colonoscopy in 5 years for surveillance. - Continue present medications. Procedure Code(s): --- Professional --- 27951, Colonoscopy, flexible; with biopsy, single or multiple CPT copyright 2021 [employer]. All rights reserved. The codes documented in this report are preliminary and upon supervisor metal cans review may be revised to meet current compliance requirements. Shaheed Hays DO 09/15/2024 1:34:58 PM This report has been signed electronically. Number of Addenda: 0 Note Initiated On: 09/15/2024 12:57 PM
--- NOTE | 2024-09-15 13:38 | PCM.POST.ANE ---
Anesthesia: Postop Eval I Current Vital Signs Temperature: 97.2 F Pulse Rate: 79 Blood Pressure: 114/100 Respiratory Rate: 16 Pulse Ox: 95 Oxygen Delivery Method: Room Air Assessment Airway patent: Yes Spontaneous unlabored respirations: Yes Mental status: Asleep nausea: No Vomiting: No Anesthesia Complication: No Fluid Hydration Crystalloid volume administer (ml): 60 Total IV fluid infused: 60 Progress Note Anesthesia document: Postop Eval 1 completed: Yes
--- NOTE | 2024-09-15 18:27 | PCM.POSTANE2 ---
Anesthesia Postop Eval I Sum Postop Eval Completion status Anesthesia document: Postop Eval 1 completed: Yes Anesthesia Postop Eval I Summary Anesthesia Postop Eval I Summary: Anesthesia Postop Eval I: Assessment Summary Airway patent Yes 09/15/24 13:39 [email or web address] Spontaneous unlabored Yes 09/15/24 13:39 [email or web address] respirations Mental status Asleep 09/15/24 13:39 [email or web address] nausea No 09/15/24 13:39 [email or web address] Vomiting No 09/15/24 13:39 [email or web address] Anesthesia Postop Eval I: Fluid Summary Crystalloid volume administer 60 09/15/24 13:39 [email or web address] (ml) Colloids volume administered ( ml) Blood Product volume administered (ml) Total IV fluid infused 60 09/15/24 13:39 [email or web address] Anesthesia Postop Eval I: Summary Notes Anesthesia Complication No 09/15/24 13:39 [email or web address] Anesthesia Complication Comment: Post-operative progress note Anesthesia: Postop Eval II Evaluation Mental status: Awake and Calm Pain Level: 0 nausea: No Vomiting: No Complications Anesthesia Complication: No
== END 2024-09-15 14:09 | disposition home or self-care (01) ==
LOC: EN 11:32 → AC 11:33
PROVIDERS: PCP Internal Medicine; Referring Provider Internal Medicine; Visit Provider Internal Medicine Gastroenterology
PROC: 0DJD8ZZ Inspection of Lower Intestinal Tract, Via Natural or Artificial Opening Endoscopic (ICD-10-PCS; CPT 45378; principal; 2024-09-15 12:25)
DX: Z12.11 Encounter for screening for malignant neoplasm of colon (principal); K64.0 First degree hemorrhoids; K60.2 Anal fissure, unspecified; K62.1 Rectal polyp; F32.A Depression, unspecified; F41.9 Anxiety disorder, unspecified; Z79.899 Other long term (current) drug therapy; Z87.891 Personal history of nicotine dependence
CPT/HCPCS: 45380; 88305; A4216; J2405

== ENCOUNTER → 2025-05-28 | Outpatient (CLI) | payer MEDICAID, SELFPAY | END | disposition home or self-care (01) | LOC: LAB 15:18 | PROVIDERS: PCP Internal Medicine; Referring Provider Nurse Practitioner Family; Visit Provider Nurse Practitioner Family | DX: K58.0 Irritable bowel syndrome with diarrhea (principal) | CPT/HCPCS: 87506 ==

== ENCOUNTER 2025-07-13 12:15 | Day surgery (SDC) | payer MEDICAID, SELFPAY ==
[2025-07-13] VITALS (8 sets, daily range): BP systolic 115–125; BP diastolic 78–86; PULSE 61–70; RESP 14–16; TEMP 36.4–36.7; O2SAT 96–100; BMI 27.2
[2025-07-13] MEDS: Lactated Ringers 1,000 ML 15 ML IV (12:46)
--- NOTE | 2025-07-13 12:54 | PRE.ANES_ITS ---
ASA Classification* ASA Classification ASA Classification: 2 Assessment & Plan Anesthesia* Anesthesia Assessment Anesthesia Assessment: Discussed sedation and/or anesthesia options, risks, benefits, and alternatives with patient/parents/legal guardian/POA. Questions invited. The patient/parents/legal guardian/POA seems to understand and agrees to proceed with anesthesia plan. Reviewed the physical assessment, medical history, allergy history and patient home medications list prior to surgery/procedure/anesthetic and documented any changes. Performed airway and anesthesia risk assessments. Anesthesia Type Anesthesia Type: General, MAC and Block History Source History Obtained from:: Patient and Chart Anesthesia Focused Assessment* Temperature: 98.0 F Pulse Rate: 63 Blood Pressure: 125/86 Respiratory Rate: 16 Pulse Ox: 99 Oxygen Delivery Method: Nasal Cannula Airway Assessment Mouth opens: >3 cm Mallampati Score: II Teeth Condition: Intact Neck Range of motion (ROM): Full ROM Comment: Has a metal piercing in the upper lip on the inside. I discussed in detail the risks of that piercing being capped during the anesthesia and surgery. The patient stated that he understands. And he signed a waiver. Labs Anesthesia Preop lab: CBC WBC, (4.4-11.0) 6.3 K/mm3 07/09/24, 09:24 RBC, (4.6-6.2) 5.11 M/mm3 07/09/24, 09:24 Hgb, (13.0-16.5) 15.8 g/dL 07/09/24, 09:24 Hct, (40-54) 48.6 % 07/09/24, 09:24 Plt Count, (150-450) 283 K/mm3 07/09/24, 09:24 CHEMISTRY Potassium, (3.5-5.1) 4.2 mmol/L 07/09/24, 09:24 Sodium, (136-145) 137 mmol/L 07/09/24, 09:24 BUN, (7-18) 22 mg/dL H 07/09/24, 09:24 Creatinine, (0.70-1.30) 0.90 mg/dL 07/09/24, 09:24 Glucose, (74-106) 67 mg/dL L 07/09/24, 09:24 COAG Pre-Assessment Diagnosis/Proposed Procedure Planned Operative Procedure(s): (L) Left open Carpal Tunnel Release Anesthesia History 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 When Was Last Pacemaker Check QUESTION #4 FULL TEXT: You/Your Family Experience fever (hyperthermia) with Anesthesia Last Oral Intake Last Oral intake: Last Oral Intake NPO since 23:00 07/13/25 12:35 Meds taken in AM with sips of Yes 07/13/25 12:35 water? Meds patient instructed to see med list 07/13/25 12:35 take am of surgery had coffee this am PONV PONV - front elevator operator: PONV - front elevator operator Female No 07/06/25 13:31 HX of Motion Sickness No 07/06/25 13:31 HX of N/V After Surgery No 07/06/25 13:31 Non-Smoker Yes 07/06/25 13:31 Duration of Surgery greater No 07/06/25 13:31 than 60 minutes Number of Risk Factors 1 07/06/25 13:31 PONV Score Low Risk 07/06/25 13:31 Height & Weight Height & Weight: Anesthesia: Height & Weight Height 6 ft 07/13/25 12:35 Weight: 91.2 kg 07/13/25 12:35 Body Mass Index (BMI) 27.2 07/13/25 12:35 Respiratory Assessment Respiratory Assessment - front elevator operator: Respiratory Tract Infection Hx - front elevator operator Hx Respiratory Tract Infection No 07/06/25 13:31 STOP Sleep Apnea STOP Sleep Apnea - front elevator operator: STOP Sleep Apnea - front elevator operator Hx Hypertension No 07/09/25 12:00 Hx Sleep Apnea No 07/06/25 13:31 CPAP BIPAP Do you snore loudly (louder No 07/06/25 13:31 than talking or can be heard Do you often feel tired/ No 07/06/25 13:31 fatigued/ sleepy during daytime? Has anyone observed you stop No 07/06/25 13:31 breathing during sleep? STOP Results Negative 07/06/25 13:31 QUESTION #5 FULL TEXT : Do you snore loudly (louder than talking or can be heard through closed doors)? Tobacco Use History Tobacco Use History - front elevator operator: Tobacco Use History - front elevator operator Tobacco Use Smoking Status Former smoker 07/06/25 13:31 Hx Tobacco Use No 07/06/25 13:31 Years Smoking Packs Smoked per Day Smoking Cessation Date was No - quit smoking greater 07/06/25 13:31 within the last 15 years than 15 years ago Hx Smoking Cessation Date 08/05/04 07/06/25 13:31 Hx Smoking Cessation No 07/06/25 13:31 Counseling Hematologic Medial History Hematologic Hx - front elevator operator: Hematologic Medical Hx - tubing drier Hx of Blood Transfusion Yes 07/06/25 13:31 Hx of Transfusion in last 3 No 07/06/25 13:31 Months Date of Last Transfusion (if within last 3 months) Ever experience any problems No 07/06/25 13:31 with transfusion(s)? Specify any problems Hx of Preganancy in last 3 N/A 07/06/25 13:31 Months Nurse Filling Out Transfusion NBUCHER 07/06/25 13:31 & Questions: Date: 07/06/25 07/06/25 13:31 Time: 13:32 07/06/25 13:31 Patient unable to answer at this time (ie. confused, unrespo /Reproduction History /Reproductive History - front elevator operator: /Reproductive Hx- front elevator operator Hx Now No 07/06/25 13:31 Gestational Age (in weeks): EDC: Hx Hx Para Hx Section SAB No 07/06/25 13:31 Does the father of the baby or his family experience fever w Father of the baby Malignant Hypertension history comment Active Medications Active Medications: Current Medications Generic Name Dose Route Start Last Admin Trade Name Freq PRN Reason Stop Dose Admin Lactated Ringer's 1,000 mls @ 15 mls/hr 07/13/25 12:30 07/13/25 12:46 IV 15 mls/hr .Q48H YUMI Administration PFSH Medical History Watery eyes Right shoulder pain Right hip pain Arthritis High cholesterol Heartburn History of closed shoulder dislocation Loss of hearing Depression Anxiety Marijuana use Alcohol use Restless legs Back pain History of pain when walking Former smoker Anal or rectal pain Colon cancer screening Preventative health care Right groin pain Bilateral carpal tunnel syndrome Scoliosis Seasonal allergies Home Medications ?Medication ?Instructions ?Recorded ?Last Taken ?Type ibuprofen 200 mg tablet (Advil) 400 mg PO Q8H PRN pain 07/13/24 09/13/24 History ammonium lactate 12 % lotion 1 applic topical BID 03/29 Unknown History venlafaxine 75 mg capsule,extended 75 mg PO QAM #90 ca ps 06/10/25 07/13/25 Rx release 24 hr sildenafil 50 mg tablet 50 mg PO QDAY PRN sexual act ivity 06/21/25 Unknown Rx #30 tabs trazodone 100 mg tablet 100 - 150 mg (1 - 1.5 x 100 mg) PO 06/22/25 Unknown Rx QHS #45 tabs Allergy/AdvReac Type Severity Reaction Status Date / Time poison seth extract Allergy Severe Rash Verified 07/13/25 12:34 Surgical History History of colonoscopy History of carpal tunnel repair H/O Spinal surgery History of vasectomy Social History adopted: No household members: significant other number of children: 1 current occupational status: employed 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 pets and animals: Yes pets and animals: cat(s), dog(s) and fish sexually active: Yes Smoking Status: Former smoker quit date: 08/04/08 Tobacco: How many years used: 10 alcohol intake: current alcohol intake frequency: a few times a week Alcohol type: beer, wine and hard liquor substance use type: marijuana caffeine: Yes (2-3) Type: coffee what type of physical activity do you participate in: weight training and other details: LABOR frequency: 3-4 times per week seatbelt use: always do you feel safe at home: Yes Review of Systems (Anesthesia) ROS Narrative System reviewed and no additional complaints, except as documented.
--- NOTE | 2025-07-13 13:23 | HP.PCM_ITS ---
History and Physical Date of Admission: 07/13/25 [facility] [address] [place] [address] OFFICE VISIT Date of Service: 05/24/25 MR#: [id number] Acct: [id number] Name: ANABEL MORTENSEN Rep #: [id number] : 1980 Provider: Dr. Abdiel Douglas DO Age/Sex: 45/M [place] [facility] [place] Status: Signed Intake Vital Signs 05/11/2511:21 05/24/2511:02 Height 6 ft 6 ft Weight: 205 lb 2 oz BMI 27.8 Intake Visit Reasons: LEFT HAND Chief Complaint: Left Hand Pain/Carpal Tunnel Accompanied by: Self Is patient in pain?: Yes Allergies poison seth extract Allergy (Severe, Verified 05/24/25 11:03) Rash Medications ?Medication ?Instructions ?Recorded ?Confirmed ?Type ibuprofen 200 mg tablet (Advil) 400 mg PO Q8H PRN pain 07/13/24 05/24/25 History sildenafil 25 mg tablet (Viagra) 25 mg PO QDAY PRN sexual activity 05/24/25 Rx #30 tabs ammonium lactate 12 % lotion topical BID 12/10/24 05/24/25 History trazodone 100 mg tablet 100 mg PO QHS #30 tabs 04/15/25 05/24/25 Rx venlafaxine 75 mg capsule,extended 75 mg PO QAM #30 caps 04/15/25 05/24/25 Rx release 24 hr PFSH Medical History Arthritis High cholesterol Heartburn History of closed shoulder dislocation Loss of hearing Depression Anxiety Marijuana use Alcohol use Restless legs Back pain History of pain when walking Former smoker Anal or rectal pain Colon cancer screening Preventative health care Right groin pain Bilateral carpal tunnel syndrome Scoliosis Seasonal allergies Surgical History History of carpal tunnel repair H/O Spinal surgery History of vasectomy Social History adopted: No household members: significant other number of children: 1 current occupational status: employed 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 pets and animals: Yes pets and animals: cat(s), dog(s) and fish sexually active: Yes Smoking Status: Former smoker quit date: 08/04/08 Tobacco: How many years used: 10 alcohol intake: current alcohol intake frequency: a few times a week Alcohol type: beer, wine and hard liquor substance use type: marijuana caffeine: Yes (2-3) Type: coffee what type of physical activity do you participate in: weight training and other details: LABOR frequency: 3-4 times per week seatbelt use: always do you feel safe at home: Yes HPI LEFT HAND Details: This documentation accurately reflects the service provided and the decisions made by me, Dr. Abdiel Douglas, DO 05/24/25823. Part of today?s visit was documented by Indu Carlos ATC, acting as scribe. ANABEL MORTENSEN is a 45 year old M here today for left hand pain and numbness/tingling. Patient had an EMG study done 07/2023. Patient states the left hand went away but came back about a month ago. He states he gets pain when reaching for things. He describes the numbness/tingling is in the thumb, index and middle fingers and at night it will go into the forearm. He does wear a brace at night and it doesn't seem to give him any relief anymore. He states in the beginning it did help him. He has had an injection in both wrists on 06/05/2024 and it did not give him much relief. He states he is considering surgery in if he could. 07/21/2024 right open carpal tunnel release: Dr. Douglas 06/05/[address] Carmona: received b/l carpal tunnel injections 01/29/2024 visit:Last office visit August 28, 2023 patient was having carpal tunnel symptoms he did have an EMG which demonstrated bilateral carpal tunnel mild. At that time he had already tried 3 months of bracing at night we discussed nerve glide exercises anti-inflammatories injections or carpal tunnel release, he wished to proceed with ibuprofen 600 mg 3 times daily and nerve glide exercises at that time. Patient is here today requesting BL hand injections. 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 He states that the pain has started to wake him up at night along with he has noticed more numbness and tingling. He states that his right hand is worse. Plan:Patient is here wanting right hand carpal tunnel injection. Spoke with patient that his treatment options are do nothing, nerve gliding exercises, anti-inflammatories for a few weeks , injections or carpal tunnel release. I counseled him on ibuprofen 600 mg 3 times dailyfor 10 days. Patient wishes to proceed with the injection today. Follow up in as needed 08/28/2023 visit:43 year old M here today NEW patient for BL hands. He states that he has numbness in both hands and get worse throughout the day especially at night. 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 He states that keeping his hands moving helps decrease the numbness. He states that this has been going on for about a year. Pt did have an EMG done on 07/25/23. Pt has done bracing at night for about 3-4 months. The bracing does help. Plan:EMG reviewed. Patient does have carpal tunnel syndrome. Patient has already tried 3 months of bracing at night. went over with patient that high impact activities and repetitive motions can aggravate and should try to avoid this. Patient does drink 1-2 beers/ day. Treatment options are do nothing or nerve gliding exercises, anti-inflammatories for a few weeks , injections or carpal tunnel release. Surgery and postoperative restrictions were reviewed. Risk benefits alternatives of surgery reviewed including risk of bleeding infection nerve artery tissue damage need for further surgery continued pain incisional hypersensitivity and pillar pain for several months, We counseled him on ibuprofen 600 mg 3 times daily for a few weeks with night bracing and nerve glides as he does not wish to proceed with surgery at this time, nerve glide exercises were provided , he thinks he might want to proceed with carpal tunnel release surgery at a later date as he has jobs coming up that he does not want to be down for. Follow up as needed or sooner if pain, swelling, numbness or associated symptoms, or concerns develop. All questions answered. Patient in agreement of plan. Ortho Exam General General: Yes no acute distress and Yes well groomed Neurologic: Yes alert and Yes oriented x3 Psychologic: Yes reasonable and appropriate Right Wrist/Hand Skin/Wound: No Swelling and No Ecchymosis Left Wrist/Hand Skin/Wound: Yes CDI, No Swelling and No Ecchymosis Left Wrist: Yes ROM-Extension 0-60 (75), Yes ROM-Flexion 0-80, Yes ROM-Pronation 0-80, Yes ROM-Supination 0-90, Yes Durken's Test, Yes Tinel's and Yes Phalen's WRIST: scar on dorsal radial wrist from previous laceration tattoo volar wrist contracture of fifth digit Head: Normocephalic Atraumatic Chest: symmetrical rise, non-labored breathing, no audible wheeze Abdomen: no guarding, non-rigid Office Procedures Ortho Injections Injections Yes Carpal Tunnel Injection Left Is this a patient provided medication?: No Details: Obtained consent for injection. Under sterile conditions, injected the patients left wrist carpal tunnel with 0.5cc Bupivacaine and 0.5cc Depomedrol. The patient tolerated the injection well without any noted complication. Patient should call our office if redness develops, pain worsens or if they have any concerns. Office Meds Depo-Medrol 40 mg/mL suspension for injection Performing Provider: Abdiel Douglas DO Performing Location: [facility] Administered by: Abdiel Douglas DO on 05/24/25 11:23 Dose Route Admin Location Dispensed Lot Number Expiration Date Package NDC NDC Underwriting Operations Manager 20 mg intra-articular Left Wrist Carpal Tunnel 0.5 mL [id number] 04/05/27 1550-8922-13 [id number] [employer] Supplemental Info 07/21/2024: Right carpal tunnel release open: Dr. 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 His options are limited for carpal tunnel syndrome but I would recommend he continue with the bracing and we could try a steroid injection. He would like to proceed with carpal tunnel release surgery but would need to hold off for 6 weeks as he would like to proceed with a steroid injection today. I will put him on the schedule for 07/13/2025 for the surgical procedure. He should not take any NSAIDs for 7 days prior to surgery but he can take tylenol if he needs something for pain. Follow up after surgery is scheduled for post-op appointment or sooner if pain, swelling, numbness or associated symptoms, or concerns develop. All questions answered. Patient in agreement of plan. 05/24/25 1142 <Electronically signed by Abdiel Douglas DO> Date Abdiel Douglas DO I have examined the patient and the H&P has been reviewed. There are no clinical changes since date of exam.
[2025-07-13] MEDS: Lactated Ringers 500 ML IV (13:39)
[2025-07-13] MEDS: Midazolam 2 MG/2 ML Syringe IV (13:39)
[2025-07-13] MEDS: Cefazolin 1 GM/5 ML Vial 2 GM IV (13:40)
[2025-07-13] MEDS: Lidocaine 1% (5 ml sdv) 5 ML Vial 4 ML IV (13:43)
[2025-07-13] MEDS: fentaNYL 100 MCG/2 ML Ampul IV (13:49)
--- NOTE | 2025-07-13 14:09 | PCM.OPRPT ---
Operative Report (Standard) Operative Information Date of Procedure: 07/13/25 Pre-Operative Diagnosis: Left carpal tunnel syndrome Post-Operative Diagnosis: Same Surgery/Procedure Performed: Left open carpal tunnel release forestry laborer: Yes Fire Sprinkler Inspector: Adriel Moeller Tasks completed by assistant manager/embalmer: Opening & closing Type of Anesthesia: Local MAC RN Documented Start/Stop Times: Operation Date: 07/13/25 13:45 Case Time Into Pre-Op 07/13/25 12:19 Out of Pre-Op 07/13/25 13:34 Anesthesia Start 07/13/25 13:39 Into Room 07/13/25 13:39 Procedure Start 07/13/25 13:53 Procedure End 07/13/25 14:06 Anesthesia End 07/13/25 14:09 Out of Room 07/13/25 14:09 Procedure Start Time: 13:53 Procedure Stop Time: 14:06 Select all DRAINS/GRAFTS/IMPLANTS that apply: None Estimated Blood Loss: 2 Specimen collected: No Description of surgery: Preoperative diagnosis; left carpal tunnel syndrome Postoperative diagnosis; same Procedure: Left open carpal tunnel release Anesthesia: Local with MAC Tourniquet time; 10 minutes 250 mm Hg Complications: None Indication for procedure; This is a 45-year-old male with long-standing symptoms consistent with carpal tunnel syndrome the patient did have electrodiagnostic evidence of this and has failed conservative treatment. Risks benefits and alternatives were reviewed including risks of bleeding infection nerve artery tissue damage need for further surgery and continued pain and symptoms, hypersensitivity to scar and Pillar pain. Procedure; The patient was met in the preoperative holding area the operative extremity was identified by both patient and physician and was marked the patient was met by anesthesia and brought back to the operating room and transferred to the operating table in the supine position. Anesthesia was started. A well-padded tourniquet was placed on the operative upper extremity. The patient was prepped and draped in the usual sterile fashion. A timeout was called to ensure the proper patient procedure and extremity were being contemplated. 0.5 percent lidocaine with epinephrine was injected into the incisional area. An Esmarch was used to exsanguinate the extremity. The tourniquet was inflated to 250 mmHg. A midline incision was made with a 15 blade scalpel between the thenar and hypothenar eminence. This was carried down through the skin and subcutaneous tissue. Joe retractors were then used, a deep blade scalpel was used to make a deep incision in the palmar aponeurosis. The joe retractors were then placed deep to this and the transverse carpal ligament was identified a perforation was made with a scalpel and a Littler scissors were used to complete the release of the transverse carpal ligament distally under direct visualization with the tips facing ulnarly until the perivascular fat was reached. Then turning our attention proximally using a tension slide technique the proximal extent of the transverse carpal ligament was released . There was noted to be hypothenar and thenar flatness significant flattening to the median nerve and hypertrophy of the transverse carpal ligament without other findings. The wound was thoroughly irrigated and was closed with 4-0 nylon vertical mattress stitches. Dressing was applied in the form of xeroform 4 x 4, web roll and an tomasa wrap. Tourniquet was let down there is no intraoperative complications patient tolerated the procedure well and was transferred to the PACU. All counts were correct. Surgical Findings: Flattening of the median nerve significant thickening of the transverse carpal ligament Complications Complications: No
--- NOTE | 2025-07-13 14:11 | DCINST_ITS ---
Discharge Instructions Diet Discharge Diet: No restrictions Dressing / Incision Call your doctor if you observe: Shortness of breath and Chest pain Additional Dressing/Incision Instructions:: Ice and elevate operative extremity next 72 hours. Keep dressing on clean and dry for 48 hours then may remove and allow warm soapy water to rinse over incision but do not submerge until sutures are out. Then apply bandaid over incision and change daily. encourage finger range of motion. Not lift more than 1/2 pound. Minimize narcotic use only as needed and directed, may use OTC NSAID and Tylenol to supplement/substitute for pain control. Follow Up Care Please Follow Up With: Abdiel Douglas DO When: 2 weeks Test Results: Test results from this visit will be discussed in further detail at your follow- up appointment, if applicable. Discharge Plan Admission Primary Reason for Your Visit: Left carpal tunnel release Attending Provider: Abdiel Douglas Primary Care Provider: Nic Samuels Instructions Print Language: Namibian Discharge Orders/Prescriptions Prescriptions: New hydrocodone-acetaminophen 5-325 mg tablet 1 - 2 tab PO Q6H PRN (Reason: pain) 3 Days Qty: 7 0RF No Action sildenafil 50 mg tablet 50 mg PO QDAY PRN (Reason: sexual activity) Qty: 30 3RF Rx Instructions: administer 30 minutes to 4 hours before activity ammonium lactate 12 % lotion 1 applic topical BID venlafaxine 75 mg capsule,extended release 24hr 75 mg PO QAM Qty: 90 1RF ibuprofen [Advil] 200 mg tablet 400 mg PO Q8H PRN (Reason: pain) trazodone 100 mg tablet 100 - 150 mg PO QHS Qty: 45 1RF Referrals / Follow Up: Nic Samuels MD [Primary Care Provider, Internal Medicine] Disposition Disposition (needs filled in before D/C Order can be placed): Home, Self Care
--- NOTE | 2025-07-13 14:15 | PCM.POST.ANE ---
Anesthesia: Postop Eval I Current Vital Signs Temperature: 97.5 F Pulse Rate: 70 Blood Pressure: 115/78 Respiratory Rate: 16 Pulse Ox: 96 Oxygen Delivery Method: Room Air Assessment Airway patent: Yes Spontaneous unlabored respirations: Yes Mental status: Awake and Calm nausea: No Vomiting: No Anesthesia Complication: No Fluid Hydration Crystalloid volume administer (ml): 500 Total IV fluid infused: 500 Progress Note Anesthesia document: Postop Eval 1 completed: Yes
--- NOTE | 2025-07-13 15:36 | POSTOPAN2_ITS ---
Anesthesia Postop Eval I Sum Postop Eval Completion status Anesthesia document: Postop Eval 1 completed: Yes Anesthesia Postop Eval I Summary Anesthesia Postop Eval I Summary: Anesthesia Postop Eval I: Assessment Summary Airway patent Yes 07/13/25 14:16 METEOROLOGICAL [email or web address].[email or web address] Spontaneous unlabored Yes 07/13/25 14:16 METEOROLOGICAL ENGINEER.[email or web address] respirations Mental status Awake,Calm 07/13/25 14:16 METEOROLOGICAL ENGINEER.MARGIEOBBrunilda nausea No 07/13/25 14:16 METEOROLOGICAL ENGINEER.MARGIEOBBrunilda Vomiting No 07/13/25 14:16 METEOROLOGICAL ENGINEER.MARGIEOBBrunilda Anesthesia Postop Eval I: Fluid Summary Crystalloid volume administer 500 07/13/25 14:16 METEOROLOGICAL ENGINEER.MARGIEOBY (ml) Colloids volume administered ( ml) Blood Product volume administered (ml) Total IV fluid infused 500 07/13/25 14:16 METEOROLOGICAL ENGINEER.JENNIFER Anesthesia Postop Eval I: Summary Notes Anesthesia Complication No 07/13/25 14:16 METEOROLOGICAL ENGINEER.JENNIFER Anesthesia Complication Comment: Post-operative progress note Anesthesia: Postop Eval II Evaluation Mental status: Awake and Calm Pain Level: 1 nausea: No Vomiting: No Complications Anesthesia Complication: No
--- NOTE | 2025-07-13 15:36 | PCM.POSTANE2 ---
Anesthesia Postop Eval I Sum Postop Eval Completion status Anesthesia document: Postop Eval 1 completed: Yes Anesthesia Postop Eval I Summary Anesthesia Postop Eval I Summary: Anesthesia Postop Eval I: Assessment Summary Airway patent Yes 07/13/25 14:16 [email or web address] Spontaneous unlabored Yes 07/13/25 14:16 [email or web address] respirations Mental status Awake,Calm 07/13/25 14:16 [facility] [email or web address] nausea No 07/13/25 14:16 [facility] [email or web address] Vomiting No 07/13/25 14:16 [facility] [email or web address] Anesthesia Postop Eval I: Fluid Summary Crystalloid volume administer 500 07/13/25 14:16 [email or web address] (ml) Colloids volume administered ( ml) Blood Product volume administered (ml) Total IV fluid infused 500 07/13/25 14:16 [email or web address] Anesthesia Postop Eval I: Summary Notes Anesthesia Complication No 07/13/25 14:16 [email or web address] Anesthesia Complication Comment: Post-operative progress note Anesthesia: Postop Eval II Evaluation Mental status: Awake and Calm Pain Level: 1 nausea: No Vomiting: No Complications Anesthesia Complication: No
--- OUTSIDE RECORDS SUMMARY | 2025-07-13 15:43 | XMS RPT_ITS | CCD ---
Author Organization [facility] CliniSynj Care Team Providers Care Clerical Investigator Name Role Phone No Family, Physician Unavailable Unavailable NGOZI CONCEPCION Unavailable Unavailable NU KONG Attending Unavailable ROBINA BLUM Referring Unavailable ROBINA BLUM Primary Care Unavailable NU KONG Attending Unavailable ROBINA BLUM Referring Unavailable ROBINA BLUM Primary Care Unavailable NU KONG JR Attending Unavaila ROBINA Krueger () Referring Unav ailable Robina Blum MD Primary Care Provider Robina Blum MD Primary Care Provider Care Physician, No Primary Primary Care Provider Unavailable Care Physician, No Primary Referring Provider Un available Dr. Nic Samuels Attending Provider Dr. Nic Samuels Primary Care Provider Dr. Nic Samuels Referring Provider Dr. Nic Samuels Other Provider Dr. 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.AMADA, Ewa Unavailable VERONICA PAGAN Attending Unavailable ROBINA BLUM Primary Care Unavailab gene TESTLICHA, VERONICA Referring Unavailable ROBINA BLUM Primary Care Unavailab le TESTLICHA, VERONICA Attending Unavailable ROBINA BLUM Primary Care Unavailab le TESTLICHA, VERONICA Attending Unavailable ROBINA BLUM Primary Care Unavailab le TESTLICHA, VERONICA Referring Unavailable ROBINA BLUM Primary Care Unavailab ROBINA Fitzpatrick Primary Care Unavailab Abdiel Chavarria Attending Unavailable Oleghe, Efewongbe Primary Care Unavailable Jolly Reyna Attending Unavailable Oleghe, Efewongbe Primary Care Unavailable WeaverFaraon Attending Unavailable Oleghe, Efewongbe Primary Care Unavailable Fara Weaveron Attending Unavailable Oleghe, Efewongbe Referring Unavailable Oleghe, Efewongbe Attending Unavailable Oleghe, Efewongbe Primary Care Unavailable Oleghe, Efewongbe Primary Care Unavailable Jolly Reyna Attending Unavailable Oleghe, Efewongbe Primary Care Unavailable Jolly Reyna Attending Unavailable Abdiel Douglas Attending Unavailable Oleghe, Efewongbe Referring Unavailable Lavonne Fuentes Attending Unavailable Oleghe, Efewongbe Primary Care Unavailable Jolyl Reyna Attending Unavailable Oleghe, Efewongbe Primary Care Unavailable Jolly Reyna Attending Unavailable Oleghe, Efewongbe Primary Care Unavailable Fara Weaveron Attending Unavailable Oleghe, Efewongbe Primary Care Unavailable Jolly Reyna Attending Unavailable Oleghe, Efewongbe Primary Care Unavailable Jolly Reyna Attending Unavailable Oleghe, Efewongbe Primary Care Unavailable Jolly Reyna Attending Unavailable Oleghe, Efewongbe Primary Care Unavailable Jolly Reyna Attending Unavailable Oleghe, Efewongbe Primary Care Unavailable Jolly Reyna Attending Unavailable Oleghe, Efewongbe Primary Care Unavailable Jolly Reyna Attending Unavailable Oleghe, Efewongbe Primary Care Unavailable Fara Weaveron Attending Unavailable Abdiel Douglas Attending Unavailable Oleghe, Efewongbe Referring Unavailable Oleghe, Efewongbe Primary Care Unavailable Oleghe, Efewongbe Referring Unavailable Oleghe, Efewongbe Attending Unavailable Oleghe, Efewongbe Primary Care Unavailable Friend, Shaheed Consulting Unavailable Friend, Shaheed Attending Unavailable Oleghe, Efewongbe Referring Unavailable Oleghe, Efewongbe Primary Care Unavailable Abdiel Douglas Attending Unavailable Abdiel Douglas Referring Unavailable Abdiel Douglas Consulting Unavailable Oleghe, Efewongbe Primary Care Unavailable Oleghe, Efewongbe Primary Care Unavailable Leilaerer Lavonne Attending Unavailable Ungerer, Lavonne Referring Unavailable Oleghe, Efewongbe Primary Care Unavailable Jolly Reyna Attending Unavailable Sandrita Craig Attending Unavailable Oleghe, Efewongbe Primary Care Unavailable Jolly Reyna Attending Unavailable Oleghe, Efewongbe Primary Care Unavailable Oleghe, Efewongbe Primary Care Unavailable Jolly Reyna Attending Unavailable Oleghe, Efewongbe Primary Care Unavailable Jolly Reyna Attending Unavailable Oleghe, Efewongbe Referring Unavailable Oleghe, Efewongbe Primary Care Unavailable Abdiel Douglas Attending Unavailable Oleghe, Efewongbe Primary Care Unavailable Judith Weaver Attending Unavailable Oleghe, Efewongbe Primary Care Unavailable Judith Weaver Attending Unavailable Jolly Reyna Attending Unavailable Oleghe, Efewongbe Primary Care Unavailable Oleghe, Efewongbe Primary Care Unavailable Judith Weaver Attending Unavailable Oleghe, Efewongbe Primary Care Unavailable Jolly Reyna Attending Unavailable Abdiel Douglas Attending Unavailable Abdiel Douglas Referring Unavailable Oleghe, Efewongbe Primary Care Unavailable Shaheed Hays Attending Unavailable Oleghe, Efewongbe Referring Unavailable Oleghe, Efewongbe Primary Care Unavailable Allergies Allergy Classification Reported Allergen(s) Allergy Type Date of Onset Reaction(s) Facility (6 sources) POISON DANIELLE EXTRACT; Translations: [POISON DANIELLE EXTRACT] Drug Allergy 07-12-2023 Rash [facility] (1 source) poison danielle extract Drug allergy (disorder) 06-10-2025 [facility] Repository Medications Current Medications Medication Drug Class(es) Dates Sig (Normalized) Sig (Original) amoxicillin 875 mg / clavulanate 125 mg oral tablet (2 sources) Penicillin-class Antibacterial Start: 06-24-2023 End: 07-01-2023 take 1 tablet by mouth twice daily amoxicillin-clav ulanate potassium (AUGMENTIN) 875-125 mg per tablet Take 1 tablet by mouth two times a day for 7 days. 14 tablet 0 06/24/2023 07/01/2023 Active Start: 04-08-2022 End: 04-15-2022 take 1 tablet by mouth twice daily amoxicillin-clavulanic acid (AUGMENTIN) 875-125 mg per tablet Take 1 tablet by mouth twice daily for 7 days. 14 tablet 0 04/08/2022 04/15/2022 Active Comment on above: Take 1 tablet by sallie th twice daily for 7 days. Take 1 tablet by sallie th two times a day for 7 days. cephalexin 500 mg oral capsule (1 source) Cephalosporin Antibacterial Start: 2024 End: 2024 take 1 capsule by mouth four times daily cephALEXin (KEFLEX) 500 mg capsule Take 1 capsule by mouth four times daily for 5 days. 20 capsule 08/26/2024 08/31/2024 Active diphenhydrAMINE hydrochloride 25 mg oral tablet (5 sources) Histamine-1 Receptor Antagonist take 1 tablet by mouth every six hours as needed diphenhydrAMINE (BENADRYL) 25 mg tablet Take 25 mg by mouth every 6 hours as needed. Active escitalopram 10 mg oral tablet (1 source) Serotonin Reuptake Inhibitor Start: 2024 take 1 tablet by mouth once escitalopram oxalate (LEXAPRO) 10 mg tablet Take 1 tablet by mouth every afternoon. 09/03/2024 Active ibuprofen 200 mg oral tablet (8 sources) Nonsteroidal Anti-inflammatory Drug take 1 tablet by mouth every six hours as needed ibuprofen (ADVIL) 200 mg tablet Take 200 mg by mouth every 6 hours as needed for pain. Active ammonium lactate 120 mg/ml topical lotion (3 sources) Start: 2024 ammonium lactate (LAC-HYDRIN) 12 % lotion 08/24/2024 Active mupirocin 0.02 mg/mg topical ointment (2 sources) RNA Synthetase Inhibitor Antibacterial Start: 2024 End: 2024 mupirocin (BACTROBAN) 2 % ointment Apply to affected area three times a day for 7 days. 15 g 08/26/2024 09/02/2024 Active [place] (Nk) (2 sources) Start: 2022 [place] (Nk) Active July 12, 2023 12:00am oxyCODONE hydrochloride 5 mg oral tablet (5 sources) Opioid Agonist Start: 2023 take 1 tablet by mouth every six hours as needed oxyCODONE IR (ROXICODONE) 5 mg immediate release tablet Take 5 mg by mouth every 6 hours as needed. 07/21/2024 Active predniSONE 20 mg oral tablet (1 source) Start: 2022 End: 2022 take 2 tablets by mouth once daily predniSONE (DELTASONE) 20 mg tablet Take 2 tablets by mouth once daily for 5 days. 10 tablet 0 06/24/2023 06/29/2023 Active Comment on above: Take 2 tablets by [facility] once daily for 5 days. sertraline 50 mg oral tablet (5 sources) Serotonin Reuptake Inhibitor Start: 2023 take 1 tablet by mouth once daily sertraline (ZOLOFT) 50 mg tablet Take 50 mg by mouth once daily. 07/09/2024 Active sildenafil 25 mg oral tablet (5 sources) Phosphodiesterase 5 Inhibitor Start: 2023 take 1 tablet by mouth once daily as needed sildenafil (VIAGRA) 25 mg tablet Take 25 mg by mouth once daily as needed. 07/14/2024 Active Completed/Discontinued Medications Medication Drug Class(es) Dates Sig (Normalized) Sig (Original) acetaminophen 325 mg / HYDROcodone bitartrate 5 mg oral tablet (2 sources) Opioid Agonist Start: 12-04-2017 End: 07-12-2023 Hydrocodone-Acetami nophen Discontinued 1 - 2 EACH PO 4 TIMES DAILY NEEDED 12 December 03, 2017 11:00pm July 12, 2023 11:32am Problems Active Problems Problem Classification Problem Date Documented Da te Episodic/Chronic Abdominal pain (4 sources) Right inguinal pain; Translations: [Right lower quadrant pain] 07-12-2023 Episodic Acquired foot deformities (4 sources) Hammer toe; Translations: [Other hammer toe(s) (acquired), right foot] Onset: 06-15-2024 06-15-2024 Chronic Anal and rectal conditions (4 sources) Anorectal pain; Translations: [Other specified diseases of anus and rectum] 07-12-2023 Episodic Anxiety disorders (1 source) Generalized anxiety disorder; Translations: [Generalized anxiety disorder] Onset: 11-26-2024 Chronic Contraceptive and procreative management (1 source) Encounter for sterilization; Translations: [Encounter for sterilization] Onset: 11-05-2018 Episodic Immunizations and screening for infectious disease (1 source) Requires diphtheria, tetanus and pertussis vaccination; Translations: [Encounter for immunization] 08-26-2024 Episodic Mood disorders (1 source) Major depressive disorder, single episode, unspecified; Translations: [Major depressive disorder, single episode, unspecified] Onset: 11-26-2024 Chronic Other and unspecified benign neoplasm (4 sources) Neuroma; Translations: [Benign neoplasm of peripheral nerves and autonomic nervous system, unspecified] 06-15-2024 Episodic Other and unspecified benign neoplasm (1 source) Benign neoplasm of peripheral nerves and autonomic nervous system, unspecified; Translations: [Neuroma] Onset: 08-04-2024 Episodic Other gastrointestinal disorders (1 source) Irritable bowel syndrome with diarrhea; Translations: [Irritable bowel syndrome with diarrhea] Onset: 06-07-2025 Chronic Other gastrointestinal disorders (1 source) Diarrhea, unspecified; Translations: [Diarrhea, unspecified] Onset: 05-28-2025 Episodic Other inflammatory condition of skin (10 sources) Rosacea; Translations: [Rosacea, unspecified] 02-11-2020 Chronic Other injuries and conditions due to external causes (1 source) Puncture wound - injury; Translations: [Other injury of unspecified body region, initial encounter] 08-26-2024 Episodic Other injuries and conditions due to external causes (1 source) Injury of left foot; Translations: [Unspecified injury of left foot, sequela] 09-29-2024 Episodic Other male genital disorders (1 source) Male erectile dysfunction, unspecified; Translations: [Male erectile dysfunction, unspecified] Onset: 07-06-2024 Chronic Other nervous system disorders (2 sources) Carpal tunnel syndrome; Translations: [Carpal tunnel syndrome, bilateral upper limbs] 07-12-2023 Chronic Other nervous system disorders (3 sources) Carpal tunnel syndrome, bilateral upper limbs; Translations: [Carpal tunnel syndrome] Onset: 08-20-2024 07-12-2023 Chronic Other nervous system disorders (1 source) Carpal tunnel syndrome, left upper limb; Translations: [Carpal tunnel syndrome, left upper limb] Onset: 05-24-2025 Chronic Other upper respiratory disease (10 sources) Seasonal allergic rhinitis; Translations: [Other seasonal allergic rhinitis] Onset: 10-29-2016 10-29-2016 Chronic Other upper respiratory disease (2 sources) Seasonal allergy; Translations: [Other seasonal allergic rhinitis] 07-12-2023 Chronic Other upper respiratory disease (1 source) Disorder of nasal sinus; Translations: [Unspecified disorder of nose and nasal sinuses] Episodic Other upper respiratory disease (1 source) Congestion of nasal sinus; Translations: [Nasal congestion] 06-24-2023 Episodic Other upper respiratory infections (1 source) Acute upper respiratory infection; Translations: [Acute upper respiratory infection, unspecified] 06-24-2023 Episodic Unclassified (1 source) Bitten or stung by nonvenomous insect and other nonvenomous arthropods, initial encounter / W57.XXXA(ICD-10) Onset: 02-26-2017 Unclassified (1 source) Cellulitis of right upper limb / L03.113(ICD-10) Onset: 02-26-2017 Unclassified (1 source) Burn of second degree of right hand, unspecified site, initial encounter / T23.201A(ICD-10) Onset: 02-26-2017 Unclassified (2 sources) Encounter for sterilization Onset: 11-05-2018 Viral infection (10 sources) 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; Translations: [Genital herpes, unspecified] Onset: 10-29-2016 10-29-2016 Chronic Past or Other Problems Problem Classification Problem Date Documented Da te Episodic/Chronic Other screening for suspected conditions (not mental disorders or infectious disease) (4 sources) Patient encounter status; Translations: [Encounter for screening for malignant neoplasm of colon] Onset: 09-21-2024 07-12-2023 Episodic Results Test Name Value Interpretation Reference Range Facility MR/BMSAgapitoBPon 06-10-2025 MR/BMSAgapitoBP [address], [address] [place] [id number] OFFICE VISIT Date of Service: 06/10/25 MR#: [id number] Acct: [id number] Name: RAIMUNDO SCHROEDER Terrance Rep #: [id number] : 1980 Provider: MASHA sim Age/Sex: 45/M Location: [facility] Status: Signed Intake Vital Signs 04/15/25 08:32 05/28/25 10:41 06/10/25 09:22 Height 6 ft 6 ft 6 ft Weight: 201 lb BMI 27.2 BP 128/77 H Blood Pressure Location Lt brachial Position Sitting Respiration 16 Pulse 70 Pulse Source Monitor BP Intake Visit Reasons: 8 w fu Accompanied by: Self Allergies poison danielle extract Allergy (Severe, Verified 06/10/25 09:25) Rash Medications ???Medication ???Instructions ???Recorded ???Confirmed ???Type ibuprofen 200 mg tablet (Advil) 400 mg PO Q8H PRN pain 07/13/24 History sildenafil 25 mg tablet (Viagra) 25 mg PO QDAY PRN sexual activity 08/26/24 06/10/25 Rx #30 tabs ammonium lactate 12 % lotion topical BID 12/10/24 06/10/25 Hist ory ondansetron 4 mg disintegrating 4 mg PO Q8H PRN nausea and 5 06/10/25 Rx tablet vomiting #10 tabs mirtazapine 7.5 mg tablet 7.5 mg PO QHS #30 tabs 06/10/25 Rx venlafaxine 75 mg capsule,extended 75 mg PO QAM #90 caps 06/10/25 1 08/10/24 Rx release 24 hr PFSH Medical History Arthritis High cholesterol Heartburn History of closed shoulder dislocation Loss of hearing Depression Anxiety Marijuana use Alcohol use Restless legs Back pain History of pain when walking Former smoker Anal or rectal pain Colon cancer screening Preventative health care Right groin pain Bilateral carpal tunnel syndrome Scoliosis Seasonal allergies Surgical History History of carpal tunnel repair H/O Spinal surgery History of vasectomy Social History adopted: No household members: significant other number of children: 1 current occupational status: employed 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 pets and animals: Yes pets and animals: cat(s), dog(s) and fish sexually active: Yes Smoking Status: Former smoker quit date: 08/04/08 Tobacco: How many years used: 10 alcohol intake: current alcohol intake frequency: a few times a week Alcohol type: beer, wine and hard liquor substance use type: marijuana caffeine: Yes (2-3) Type: coffee what type of physical activity do you participate in: weight training and other details: LABOR frequency: 3-4 times per week seatbelt use: always do you feel safe at home: Yes HPI History of Present Illness History provided by: patient HPI: Raimundo Schroeder is a 45 year old male patient presenting today for a follow up evaluation. Reports he has been fine since last appointment. Does not feel he has noticed much change since last appointment. Has continued to wake up at night at 3 in the morning. Is getting about 5 hours per night as he is unable to fall back to sleep once he is awake. Appetite has been good overall. no large changes in weight since last appointment. Mood has been unchanged. Is finding maicol in things. Enjoys literature and art. Denies recent feelings of depression. Does report a reduction in passive SI since last appointment. Does not feel anxiety has reduced, however does feel that the current social climate is awful and contributes to anxiety. Previous similar episode: Yes Age of first onset of symptoms: 31-40 years Review of Systems Constitutional Reports: fatigue and change in sleep pattern; Denies: fever(s), chills or change in weight Eyes Reports: floaters Ears, Nose, Mouth, Throat Reports: neck pain and tinnitus Cardiovascular Denies: chest pain, palpitations or orthopnea Respiratory Denies: wheezing Gastrointestinal Reports: change in bowel habits Genitourinary Reports: urinary urgency and change in libido (new) Musculoskeletal Reports: back pain, neck pain, joint pain and muscle cramps (at night) Integumentary/Breast Denies: rash, pruritus or erythema Neurological Reports: headache(s) Psychiatric Reports: anxiety, change in sleep pattern, irritability, memory loss and suicidal ideation (passive, reduced ); Denies: panic attacks, hopelessness, loss of interest, paranoia, difficulty concentrating, visual hallucinations, auditory hallucinations or homicidal ideation Endocrine Reports: fatigue and change in libido (new) Allergic/Immunologic Denies: wheezing Exam Mental Status Exam - Psych Appearance casually dressed and adequately groomed Attitude cooperative, calm and engaged Activity/Motor Behavior MSE activity/motor behavior finding no adventitious movements and appr (more content not included)... Normal [facility] ENTERIC PATHOGEN PANEL STOOL on 05-28-2025 EP PANEL CAMPYLOBACTER Not Detected Norovirus Not Detected Rotavirus Not Detected Salmonella Not Detected Shiga Toxin Not Detected Shigella sp. Not Detected VIBRIO Not Detected Yersinia Not Detected Normal [facility] Comment on above: Performed By: #### M 100.637 ####[facility] [id number] [place], [address] Internal Medicine Office Vis itoesthela 05-28-2025 Internal Medicine Office Visit [facility] Internal Medicine [address] [place] [address] [place] [address] OFFICE VISIT Date of Service: 05/28/25 MR#: [id number] Acct: [id number] Name: RAIMUNDO SCHROEDER Rep #: [id number] : 1980 Provider: MASHA gao Age/Sex: 45/M Location: [email or web address] Status: Signed Intake Vital Signs 05/24/25 11:02 05/28/25 10:41 Height 6 ft 6 ft Weight: 205 lb 2 oz 205 lb BMI 27.8 27.8 BP 124/70 H Blood Pressure Location Lt brachial Position Sitting Respiration 16 Pulse 83 Pulse Source Monitor Temp 97.1 F L Temp Source Temporal Pulse Oximetry (%) 98 Oxygen Delivery Method room air Intake Visit Reasons: Giardia exposure and other concerns Chief Complaint: nausea diarrhea body aches lots of bowel noises Veterinary Toxicologist Required: No Accompanied by: Self Is patient in pain?: No Allergies poison danielle extract Allergy (Severe, Verified 05/28/25 10:39) Rash Medications ???Medication ???Instructions ???Recorded ???Confirmed ???Type ibuprofen 200 mg tablet (Advil) 400 mg PO Q8H PRN pain 07/13/24 History sildenafil 25 mg tablet (Viagra) 25 mg PO QDAY PRN sexual activity 08/26/24 05/28/25 Rx #30 tabs ammonium lactate 12 % lotion topical BID 12/10/24 05/28/25 Hist ory trazodone 100 mg tablet 100 mg PO QHS #30 tabs 04/15/25 Rx venlafaxine 75 mg capsule,extended 75 mg PO QAM #30 caps 04/15/25 1 Rx release 24 hr ondansetron 4 mg disintegrating 4 mg PO Q8H PRN nausea and 5 05/28/25 Rx tablet vomiting #10 tabs Have you fallen in the past year?: No Nurse's Note: body aching nausea diarrhea dog had giardia also has chickens several weeks getting worse not better [facility] Medical History Arthritis High cholesterol Heartburn History of closed shoulder dislocation Loss of hearing Depression Anxiety Marijuana use Alcohol use Restless legs Back pain History of pain when walking Former smoker Anal or rectal pain Colon cancer screening Preventative health care Right groin pain Bilateral carpal tunnel syndrome Scoliosis Seasonal allergies Surgical History History of carpal tunnel repair H/O Spinal surgery History of vasectomy Social History adopted: No household members: significant other number of children: 1 current occupational status: employed 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 pets and animals: Yes pets and animals: cat(s), dog(s) and fish sexually active: Yes Smoking Status: Former smoker quit date: 08/04/08 Tobacco: How many years used: 10 alcohol intake: current alcohol intake frequency: a few times a week Alcohol type: beer, wine and hard liquor substance use type: marijuana caffeine: Yes (2-3) Type: coffee what type of physical activity do you participate in: weight training and other details: LABOR frequency: 3-4 times per week seatbelt use: always do you feel safe at home: Yes HPI HPI Chief Complaint: nausea diarrhea body aches lots of bowel noises Details: RAIMUNDO SCHROEDER, is a 45 M who presents to the office today for complaints of nausea and diarrhea. Patient also complains of large amounts of gas and feeling bloated. He states he has not vomited however just feels nauseous. He states he felt like this for approximately 3 weeks. He denies any specific foods causing symptoms. He did have a colonoscopy in January was noted that he did have a fissure however no concerns with his bowel. He states recently his dog had Giardia and is concerned it could be something from his dog he also does have chickens. He does find it difficult to ensure he is intaking enough fluid. He has tried to modify his diet has not noticed any specific foods that cause symptoms. He did start venlafaxine approximately 5 to 6 weeks ago. States symptoms started shortly after that however he is unsure what the possible cause could be. Denies fever or chills denies chest pain or shortness of breath. ROS Const Constitutional: No body ache, excessive sweating, fatigue, fever(s), frequent falls, headache(s), snoring, weakness, weight change, sleep problems or change in appetite Eyes Eyes: No blurry vision, change in vision, eye pain or Light sensitivity ENT ENT: No abnormal hearing, ear or mastoid pain, tinnitus, nasal congestion, headache(s), neck pain or sore throat Resp Respiratory: No cough, shortness of breath, snoring or wheezing Cardio Cardiology: No chest pain at rest, chest pain with exertion, excessive sweating, shortness of breath, dyspnea on exertion, lightheadedness, orthopnea or palpitations Gastro GI: No abdominal pain, change in bowel habits, constipation, c (more content not included)... Normal [facility] Orthopedic Visit Reporton Orthopedic Visit Report [facility] [address] [place] [address] OFFICE VISIT Date of Service: 05/24/25 MR#: [id number] Acct: [id number] Name: RAIMUNDO SCHROEDER Rep #: [id number] : 1980 Provider: Dr. Abdiel maciel DO Age/Sex: 45/M Location: [facility] Status: Signed Intake Vital Signs 05/11/25 11:21 05/24/25 11:02 Height 6 ft 6 ft Weight: 205 lb 2 oz BMI 27.8 Intake Visit Reasons: LEFT HAND Chief Complaint: Left Hand Pain/Carpal Tunnel Accompanied by: Self Is patient in pain?: Yes Allergies poison danielle extract Allergy (Severe, Verified 05/24/25 11:03) Rash Medications ???Medication ???Instructions ???Recorded ???Confirmed ???Type ibuprofen 200 mg tablet (Advil) 400 mg PO Q8H PRN pain 07/13/24 History sildenafil 25 mg tablet (Viagra) 25 mg PO QDAY PRN sexual activity 08/26/24 05/24/25 Rx #30 tabs ammonium lactate 12 % lotion topical BID 12/10/24 05/24/25 Hist ory trazodone 100 mg tablet 100 mg PO QHS #30 tabs 04/15/25 Rx venlafaxine 75 mg capsule,extended 75 mg PO QAM #30 caps 04/15/25 1 Rx release 24 hr PFSH Medical History Arthritis High cholesterol Heartburn History of closed shoulder dislocation Loss of hearing Depression Anxiety Marijuana use Alcohol use Restless legs Back pain History of pain when walking Former smoker Anal or rectal pain Colon cancer screening Preventative health care Right groin pain Bilateral carpal tunnel syndrome Scoliosis Seasonal allergies Surgical History History of carpal tunnel repair H/O Spinal surgery History of vasectomy Social History adopted: No household members: significant other number of children: 1 current occupational status: employed 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 pets and animals: Yes pets and animals: cat(s), dog(s) and fish sexually active: Yes Smoking Status: Former smoker quit date: 08/04/08 Tobacco: How many years used: 10 alcohol intake: current alcohol intake frequency: a few times a week Alcohol type: beer, wine and hard liquor substance use type: marijuana caffeine: Yes (2-3) Type: coffee what type of physical activity do you participate in: weight training and other details: LABOR frequency: 3-4 times per week seatbelt use: always do you feel safe at home: Yes HPI LEFT HAND Details: This documentation accurately reflects the service provided and the decisions made by me, Dr. Abdiel Douglas, DO 05/24/25 08. Part of today???s visit was documented by Indu Carlos [employer], acting as scribe. RAIMUNDO SCHROEDER is a 45 year old M here today for left hand pain and numbness/tingling. Patient had an EMG study done 07/2023. Patient states the left hand went away but came back about a month ago. He states he gets pain when reaching for things. He describes the numbness/tingling is in the thumb, index and middle fingers and at night it will go into the forearm. He does wear a brace at night and it doesn't seem to give him any relief anymore. He states in the beginning it did help him. He has had an injection in both wrists on 06/05/2024 and it did not give him much relief. He states he is considering surgery in if he could. 07/21/2024 right open carpal tunnel release: Dr. Douglas 06/05/[address] Carmona: received b/l carpal tunnel injections 01/29/2024 visit:Last office visit August 28, 2023 patient was having carpal tunnel symptoms he did have an EMG which demonstrated bilateral carpal tunnel mild. At that time he had already tried 3 months of bracing at night we discussed nerve glide exercises anti-inflammatories injections or carpal tunnel release, he wished to proceed with ibuprofen 600 mg 3 times daily and nerve glide exercises at that time. Patient is here today requesting BL hand injections. 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 He states that the pain has started to wake him up at night along with he has noticed more numbness and tingling. He states that his right hand is worse. Plan:Patient is here wanting right hand carpal tunnel injection. Spoke with patient that his treatment options are do nothing, nerve gliding exercises, anti-inflammatories for a few weeks , injections or carpal tunnel release. I counseled him on ibuprofen 600 mg 3 times dailyfor 10 days. Patient wishes to proceed with the injection today. Follow up in as needed 08/28/2023 visit:43 year old M here today NEW patient for BL hands. He states that he has numbness in both hands and get worse throughout the day especially at night. 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 Normal [facility] MR/BMS.BPon 05-11-2025 MR/BMS.BP [facility] [address], [address] [place] [address] OFFICE VISIT Date of Service: 05/11/25 MR#: [id number] Acct: [id number] Name: RAIMUNDO SCHROEDER Rep #: [id number] : 1980 Provider: [facility] Jolly luciano Age/Sex: 45/M Location: [place].BP Status: Signed Intake Vital Signs 11/05/24 09:57 04/15/25 08:32 05/11/25 11:21 Height 6 ft 6 ft 6 ft BP Intake Visit Reasons: Follow up Allergies poison danielle extract Allergy (Severe, Verified 12/10/24 10:03) Rash [facility] Medical History Arthritis High cholesterol Heartburn History of closed shoulder dislocation Loss of hearing Depression Anxiety Marijuana use Alcohol use Restless legs Back pain History of pain when walking Former smoker Anal or rectal pain Colon cancer screening Preventative health care Right groin pain Bilateral carpal tunnel syndrome Scoliosis Seasonal allergies Surgical History History of carpal tunnel repair H/O Spinal surgery History of vasectomy Social History adopted: No household members: significant other number of children: 1 current occupational status: employed 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 pets and animals: Yes pets and animals: cat(s), dog(s) and fish sexually active: Yes Smoking Status: Former smoker quit date: 08/04/08 Tobacco: How many years used: 10 alcohol intake: current alcohol intake frequency: a few times a week Alcohol type: beer, wine and hard liquor substance use type: marijuana caffeine: Yes (2-3) Type: coffee what type of physical activity do you participate in: weight training and other details: LABOR frequency: 3-4 times per week seatbelt use: always do you feel safe at home: Yes HPI History of Present Illness HPI: Raimundo Schroeder is a 45 year-old male returning for therapy. He reported ongoing sleep issues, reduction in SI with no plan or intent, intrusive thoughts, and frequent rumination. Raimundo identified stressors related to long-term care planning for father and father past and recent history of antagonistic behavior. He reported interactions with his significant other were mostly positive but tension when he attempts to address concerns about her or her child. Encouraged verbalization of emotions while providing support. Normalized emotions. Discussed bibliography that could assist with coping with father's behavioral/interactio nal patterns. Worked on thought defusion and mindfulness of thoughts providing psychoeducation and using ACT metaphor passengers on the bus. Discussed interventions for sleep difficulties including sleep meditations. Problem solved options for addressing concerns with significant other assisting Raimundo in evaluating pros and cons of options. Future-oriented. Exam Mental Status Exam - Psych Appearance casually dressed and adequately groomed Attitude cooperative, calm, engaged and pleasant Activity/Motor Behavior MSE activity/motor behavior finding no adventitious movements and appropriate eye contact Speech regular rate, regular volume and regular prosody Mood OK and anxious Affect full range Thought Process linear, logical and coherent Thought Content no delusions, no hallucinations and ruminations Suicidal Ideation passive (Reported significant reduction in frequency of SI.); No intent and No plans Homicidal Ideation none Attention intact Concentration intact Sensorium/Orientation awake, alert and oriented x3 Memory/Cognition impaired (per patient self report ) Insight good Judgement good Assessment Plan Assessment Plan (1) Major depressive disorder with current active episode: Qualifiers: Major depression episode severity: unspecified Major depression recurrence: unspecified whether recurrent Qualified Code(s): F32.9 - Major depressive disorder, single episode, unspecified Plan: BH therapy using CBT, DBT, and ACT interventions to address thought patterns contributing to depressive symptoms and teach coping skills. Continued psychiatric services to monitor depressive symptoms and medication effectiveness. Pt. to call 911, call suicide prevention hotline, or go to ER if experiencing suicidal ideation with plan and intent and/or feel unable to ensure own safety. (2) SHAYY (generalized anxiety disorder): Plan: BH therapy using CBT, DBT, and ACT interventions to address thought patterns contributing to anxious symptoms and to teach coping skills. Psychiatric services to monitor anxious symptoms and medication effectiveness. Plan TREATMENT PLAN Goal 1 - Reduce depressive symptoms by 30% AEB pt.'s self-report. Objective 1 - Identify and replace thought (more content not included)... Normal [facility] MR/BMS.BPon 04-15-2025 MR/BMS.BP [facility], [address] [place] [id number] OFFICE VISIT Date of Service: 04/15/25 MR#: [id number] Acct: [id number] Name: RAIMUNDO SCHROEDER Rep #: [id number] : 1980 Provider: MASHA sim Age/Sex: 45/M Location: [place].BP Status: Signed Intake Vital Signs 02/02/25 07:03 04/15/25 08:32 Height 6 ft 6 ft BP Intake Visit Reasons: Follow up Allergies poison danielle extract Allergy (Severe, Verified 12/10/24 10:03) Rash [facility] Medical History Arthritis High cholesterol Heartburn History of closed shoulder dislocation Loss of hearing Depression Anxiety Marijuana use Alcohol use Restless legs Back pain History of pain when walking Former smoker Anal or rectal pain Colon cancer screening Preventative health care Right groin pain Bilateral carpal tunnel syndrome Scoliosis Seasonal allergies Surgical History History of carpal tunnel repair H/O Spinal surgery History of vasectomy Social History adopted: No household members: significant other number of children: 1 current occupational status: employed 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 pets and animals: Yes pets and animals: cat(s), dog(s) and fish sexually active: Yes Smoking Status: Former smoker quit date: 08/04/08 Tobacco: How many years used: 10 alcohol intake: current alcohol intake frequency: a few times a week Alcohol type: beer, wine and hard liquor substance use type: marijuana caffeine: Yes (2-3) Type: coffee what type of physical activity do you participate in: weight training and other details: LABOR frequency: 3-4 times per week seatbelt use: always do you feel safe at home: Yes HPI History of Present Illness History provided by: patient HPI: Raimundo Schroeder is a 45 year old male patient presenting today for a follow up evaluation. Reports he has been doing well since last appointment. Reports he has been sleeping better since last appointment. Is getting about 6 hours per night. Reports he has continued to have passive SI. Denies plan or intent. Does not feel depressed day to day. Is finding maicol in things. Has been doing well with motivation and energy. Admits to feelings of anxiety when he thinks about the future. Does not feel anxious at baseline. Does try to keep himself busy as to not things about anxiety inducing topics. Appetite has been good. Previous similar episode: Yes Age of first onset of symptoms: 31-40 years Review of Systems Constitutional Reports: change in weight (gain), fatigue and change in sleep pattern; Denies: fever(s) or chills Eyes Reports: floaters Ears, Nose, Mouth, Throat Reports: neck pain and tinnitus Cardiovascular Denies: chest pain, palpitations or orthopnea Respiratory Denies: wheezing Gastrointestinal Reports: change in bowel habits Genitourinary Reports: urinary urgency and change in libido (new) Musculoskeletal Reports: back pain, neck pain, joint pain and muscle cramps (at night) Integumentary/Breast Denies: rash, pruritus or erythema Neurological Reports: headache(s) Psychiatric Reports: irritability, memory loss and suicidal ideation (passive); Denies: anxiety, panic attacks, change in sleep pattern, hopelessness, loss of interest, paranoia, difficulty concentrating, visual hallucinations, auditory hallucinations or homicidal ideation Endocrine Reports: fatigue and change in libido (new) Allergic/Immunologic Denies: wheezing Exam Mental Status Exam - Psych Appearance casually dressed and adequately groomed Attitude cooperative, calm and engaged Activity/Motor Behavior MSE activity/motor behavior finding no adventitious movements and appropriate eye contact Speech regular rate, regular volume and regular prosody Mood OK Affect full range Thought Process linear, logical and coherent Thought Content no delusions and no hallucinations Suicidal Ideation passive; No intent and No plans Homicidal Ideation none Attention intact Concentration intact Sensorium/Orientation awake, alert and oriented x3 Memory/Cognition impaired (per patient self report ) Insight good Judgement good Exam Constitutional Common normals: no acute distress, average body habitus and patient oriented x3 Neuro Common normals: patient oriented x3 Speech: speech normal Gait (neuro): normal gait Psych Psychiatry clinicians, please identify where your Mental Status Exam is documented: Mental Status Exam documented in the separate MSE Assessment Plan Assessment Plan (1) Major depressive disorder with current active episode: Qualifiers: Major depression episode severity: unspecified Major depr (more content not included)... Normal [facility] MR/BMS.BPon 04-09-2025 MR/BMS.BP [facility] [place] [id number] OFFICE VISIT Date of Service: 04/06/25 MR#: [id number] Acct: [id number] Name: RAIMUNDO SCHROEDER Rep #: [id number] : 1980 Provider: [facility] Jolly luciano Age/Sex: 45/M Location: [place].BP Status: Signed Intake Vital Signs 11/05/24 09:57 01/08/25 09:25 04/09/25 08:01 Height 6 ft 6 ft 6 ft BP Intake Visit Reasons: follow up Allergies poison danielle extract Allergy (Severe, Verified 12/10/24 10:03) Rash [facility] Medical History Arthritis High cholesterol Heartburn History of closed shoulder dislocation Loss of hearing Depression Anxiety Marijuana use Alcohol use Restless legs Back pain History of pain when walking Former smoker Anal or rectal pain Colon cancer screening Preventative health care Right groin pain Bilateral carpal tunnel syndrome Scoliosis Seasonal allergies Surgical History History of carpal tunnel repair H/O Spinal surgery History of vasectomy Social History adopted: No household members: significant other number of children: 1 current occupational status: employed 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 pets and animals: Yes pets and animals: cat(s), dog(s) and fish sexually active: Yes Smoking Status: Former smoker quit date: 08/04/08 Tobacco: How many years used: 10 alcohol intake: current alcohol intake frequency: a few times a week Alcohol type: beer, wine and hard liquor substance use type: marijuana caffeine: Yes (2-3) Type: coffee what type of physical activity do you participate in: weight training and other details: LABOR frequency: 3-4 times per week seatbelt use: always do you feel safe at home: Yes HPI History of Present Illness HPI: Raimundo Schreoder is a 45 year-old male returning for therapy. He reported that interactions between him and his significant other have been positive and that child spending 1.5 months with him had gone well. Raimundo identified being able to enjoy activities. He reported being productive and completing a number of projects. Raimundo identified some times of fleeting SI with no plan or intent that are inconsistent with euthymic mood. He discussed easily managing them. Raimundo reported concern about father's aging and living situation and wanting father to move to this area. Encouraged verbalization of emotions while providing support. Reinforced coping with chronic SI. Discussed protective factors and how to review them when having SI. Problem solved with Raimundo options for addressing concerns about father's living situation. Reinforced engaging in pleasant activities. Future oriented. Encouraged Raimundo to schedule with psychiatric provider as he had canceled last appointment. Exam Mental Status Exam - Psych Appearance casually dressed and adequately groomed Attitude cooperative, calm, engaged and pleasant Activity/Motor Behavior MSE activity/motor behavior finding no adventitious movements and appropriate eye contact Speech regular rate, regular volume and regular prosody Mood OK Affect full range Thought Process linear, logical and coherent Thought Content no delusions and no hallucinations Suicidal Ideation none Homicidal Ideation none Attention intact Concentration intact Sensorium/Orientation awake, alert and oriented x3 Memory/Cognition impaired (per patient self report ) Insight good Judgement good Assessment Plan Assessment Plan (1) Major depressive disorder with current active episode: Qualifiers: Major depression recurrence: unspecified whether recurrent Major depression episode severity: unspecified Qualified Code(s): F32.9 - Major depressive disorder, single episode, unspecified Plan: therapy using CBT, DBT, and ACT interventions to address thought patterns contributing to depressive symptoms and teach coping skills. Continued psychiatric services to monitor depressive symptoms and medication effectiveness. Pt. to call 911, call suicide prevention hotline, or go to ER if experiencing suicidal ideation with plan and intent and/or feel unable to ensure own safety. (2) SHAYY (generalized anxiety disorder): Plan: therapy using CBT, DBT, and ACT interventions to address thought patterns contributing to anxious symptoms and to teach coping skills. Psychiatric services to monitor anxious symptoms and medication effectiveness. Plan TREATMENT PLAN Goal 1 - Reduce depressive symptoms by 30% AEB pt.'s self-report. Objective 1 - Identify and replace thoughts and beliefs that support depression. Intervention 1 - Using CBT will help pt. learn the connection among thoughts, feelings, and behaviors. Intervention (more content not included)... Normal [facility] MR/BMSAgapitoBPon 02-02-2025 MR/BMS. [facility] [place] [id number] OFFICE VISIT Date of Service: 02/01/25 MR#: [id number] Acct: [id number] Name: RAIMUNDO SCHROEDER Rep #: [id number] : 1980 Provider: [facility] Jolly luciano Age/Sex: 45/M Location: [place].BP Status: Signed Intake Vital Signs 11/05/24 09:57 01/08/25 09:25 02/02/25 07:03 Height 6 ft 6 ft 6 ft BP Intake Visit Reasons: Follow up Allergies poison danielle extract Allergy (Severe, Verified 12/10/24 10:03) Rash [facility] Medical History Arthritis High cholesterol Heartburn History of closed shoulder dislocation Loss of hearing Depression Anxiety Marijuana use Alcohol use Restless legs Back pain History of pain when walking Former smoker Anal or rectal pain Colon cancer screening Preventative health care Right groin pain Bilateral carpal tunnel syndrome Scoliosis Seasonal allergies Surgical History History of carpal tunnel repair H/O Spinal surgery History of vasectomy Social History adopted: No household members: significant other number of children: 1 current occupational status: employed 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 pets and animals: Yes pets and animals: cat(s), dog(s) and fish sexually active: Yes Smoking Status: Former smoker quit date: 08/04/08 Tobacco: How many years used: 10 alcohol intake: current alcohol intake frequency: a few times a week Alcohol type: beer, wine and hard liquor substance use type: marijuana caffeine: Yes (2-3) Type: coffee what type of physical activity do you participate in: weight training and other details: LABOR frequency: 3-4 times per week seatbelt use: always do you feel safe at home: Yes HPI History of Present Illness HPI: Raimundo Schroeder is a 45 year-old male returning for therapy. He reported that interactions between him and his significant other have improved. Raimundo identified having had a recent couples counseling appointment. No further appointments were scheduled due to their progress. However, they can schedule if needed. He reported being busy with work projects. Raimundo's mood appeared improved when compared to recent appointments. He identified friends' marriage problems and structuring daughter's month visit were stressors. Raimundo reported unexpected of a close friend. Encouraged verbalization of emotions while providing support. Normalized emotions. Explored thought patterns contributing to anxiety, which were should thinking and personalization. Worked on thought patterns using CBT interventions. Worked on value-based actions related to his daughter visit. Discussed relationship with late friend and response to her . Provided psychoeducation on grief. No SI. Future-oriented. Exam Mental Status Exam - Psych Appearance casually dressed and adequately groomed Attitude cooperative, calm, engaged and pleasant Activity/Motor Behavior MSE activity/motor behavior finding no adventitious movements and appropriate eye contact Speech regular rate, regular volume and regular prosody Mood OK Affect full range Thought Process linear, logical and coherent Thought Content no delusions and no hallucinations Suicidal Ideation none Homicidal Ideation none Attention intact Concentration intact Sensorium/Orientation awake, alert and oriented x3 Memory/Cognition impaired (per patient self report ) Insight good Judgement good Assessment Plan Assessment Plan (1) Major depressive disorder with current active episode: Qualifiers: Major depression recurrence: unspecified whether recurrent Major depression episode severity: unspecified Qualified Code(s): F32.9 - Major depressive disorder, single episode, unspecified Plan: therapy using CBT, DBT, and ACT interventions to address thought patterns contributing to depressive symptoms and teach coping skills. Continued psychiatric services to monitor depressive symptoms and medication effectiveness. Pt. to call 911, call suicide prevention hotline, or go to ER if experiencing suicidal ideation with plan and intent and/or feel unable to ensure own safety. (2) SHAYY (generalized anxiety disorder): Plan: therapy using CBT, DBT, and ACT interventions to address thought patterns contributing to anxious symptoms and to teach coping skills. Psychiatric services to monitor anxious symptoms and medication effectiveness. Plan TREATMENT PLAN Goal 1 - Reduce depressive symptoms by 30% AEB pt.'s self-report. Objective 1 - Identify and replace thoughts and beliefs that support depression. Intervention 1 - Using CBT will help pt. learn the connection among thoughts, feelings, and behaviors. (more content not included)... Normal [facility] MR/BMSAgapitoBPon 01-08-2025 MR/BMS.BP [facility] [place] [id number] OFFICE VISIT Date of Service: 01/08/25 MR#: [id number] Acct: [id number] Name: RAIMUNDO SCHROEDER Rep #: [id number] : 1980 Provider: MASHA sim Age/Sex: 44/M Location: [place].BP Status: Signed Intake Vital Signs 12/10/24 10:02 01/08/25 09:25 Height 6 ft 6 ft Weight: 203 lb BMI 27.5 BP 110/73 Blood Pressure Location Lt brachial Position Sitting Respiration 16 Pulse 63 Pulse Source Monitor BP Intake Visit Reasons: 4wfu Allergies poison danielle extract Allergy (Severe, Verified 12/10/24 10:03) Rash [facility] Medical History Arthritis High cholesterol Heartburn History of closed shoulder dislocation Loss of hearing Depression Anxiety Marijuana use Alcohol use Restless legs Back pain History of pain when walking Former smoker Anal or rectal pain Colon cancer screening Preventative health care Right groin pain Bilateral carpal tunnel syndrome Scoliosis Seasonal allergies Surgical History History of carpal tunnel repair H/O Spinal surgery History of vasectomy Social History adopted: No household members: significant other number of children: 1 current occupational status: employed 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 pets and animals: Yes pets and animals: cat(s), dog(s) and fish sexually active: Yes Smoking Status: Former smoker quit date: 08/04/08 Tobacco: How many years used: 10 alcohol intake: current alcohol intake frequency: a few times a week Alcohol type: beer, wine and hard liquor substance use type: marijuana caffeine: Yes (2-3) Type: coffee what type of physical activity do you participate in: weight training and other details: LABOR frequency: 3-4 times per week seatbelt use: always do you feel safe at home: Yes HPI History of Present Illness History provided by: patient HPI: Raimundo Schroeder is a 44 year old male patient presenting today for a follow up evaluation. Reports since last appointment he has slept well with trazodone. Is getting 8 hours per night. Does wake up feeling groggy at times. It taking the full tablet and does well with this. Denies SI/HI. Has not been able to focus on feelings of depression as he has been busier. Is able to find maicol in things and finding interest in things that he likes to do such as reading and watching movies. Denies any changes in energy or motivation. Denies feelings of worthlessness. Admits to feelings of hopelessness. Denies feelings of anxiety. Denies panic attacks. Denies any changes in appetite and has been eating well. Previous similar episode: Yes Age of first onset of symptoms: 31-40 years Review of Systems Constitutional Reports: change in weight (gain), fatigue and change in sleep pattern; Denies: fever(s) or chills Eyes Reports: floaters Ears, Nose, Mouth, Throat Reports: neck pain and tinnitus Cardiovascular Denies: chest pain, palpitations or orthopnea Respiratory Denies: wheezing Gastrointestinal Reports: change in bowel habits Genitourinary Reports: urinary urgency and change in libido (new) Musculoskeletal Reports: back pain, neck pain, joint pain and muscle cramps (at night) Integumentary/Breast Denies: rash, pruritus or erythema Neurological Reports: headache(s) Psychiatric Reports: irritability and memory loss; Denies: anxiety, panic attacks, change in sleep pattern, hopelessness, loss of interest, paranoia, difficulty concentrating, visual hallucinations, auditory hallucinations or suicidal ideation Endocrine Reports: fatigue and change in libido (new) Allergic/Immunologic Denies: wheezing Exam Mental Status Exam - Psych Appearance casually dressed and adequately groomed Attitude cooperative, calm and engaged Activity/Motor Behavior MSE activity/motor behavior finding no adventitious movements and appropriate eye contact Speech regular rate, regular volume and regular prosody Mood OK Affect full range Thought Process linear, logical and coherent Thought Content no delusions and no hallucinations Suicidal Ideation none Homicidal Ideation none Attention intact Concentration intact Sensorium/Orientation awake, alert and oriented x3 Memory/Cognition impaired (per patient self report ) Insight good Judgement good Exam Constitutional Common normals: no acute distress, average body habitus and patient oriented x3 Neuro Common normals: patient oriented x3 Speech: speech normal Gait (neuro): normal gait Psych Psychiatry clinicians, please identify where your Mental Status Exam is documented: Mental Status Exam documented in t (more content not included)... Normal [facility] MR/BMS.BPon 12-11-2024 MR/BMS.BP [facility] [facility], [address] [place] [id number] OFFICE VISIT Date of Service: 12/10/24 MR#: [id number] Acct: [id number] Name: RAIMUNDO SCHROEDER Rep #: [id number] : 1980 [facility] Age/Sex: 44/M Location: [place].BP Status: Signed Intake Vital Signs 09/03/24 09:57 11/26/24 11:00 12/11/24 06:46 Height 6 ft 6 ft 6 ft BP Intake Visit Reasons: Follow up Allergies poison danielle extract Allergy (Severe, Verified 12/10/24 10:03) Rash [facility] Medical History Arthritis High cholesterol Heartburn History of closed shoulder dislocation Loss of hearing Depression Anxiety Marijuana use Alcohol use Restless legs Back pain History of pain when walking Former smoker Anal or rectal pain Colon cancer screening Preventative health care Right groin pain Bilateral carpal tunnel syndrome Scoliosis Seasonal allergies Surgical History History of carpal tunnel repair H/O Spinal surgery History of vasectomy Social History adopted: No household members: significant other number of children: 1 current occupational status: employed 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 pets and animals: Yes pets and animals: cat(s), dog(s) and fish sexually active: Yes Smoking Status: Former smoker quit date: 08/04/08 Tobacco: How many years used: 10 alcohol intake: current alcohol intake frequency: a few times a week Alcohol type: beer, wine and hard liquor substance use type: marijuana caffeine: Yes (2-3) Type: coffee what type of physical activity do you participate in: weight training and other details: LABOR frequency: 3-4 times per week seatbelt use: always do you feel safe at home: Yes HPI History of Present Illness HPI: Raimundo Schroeder is a 44 year-old male returning for BH therapy. He reported stopping Wellbutrin as instructed and having a significant reduction in SI. Raimundo is having some passive SI with no plan or intent, which happens mostly at night with sleep disturbance. He will discuss this at his 12/10/2024 psychiatric appointment. He identified no changes in his relationship with his significant other and continued negative thoughts about relationships and potential for them to end resulting from his divorce. Raimundo had recent interactions with his parents and daughter. He discussed father's behavioral patterns and impact on him. Encouraged verbalization of emotions while providing support. Raimundo discussed struggling with thinking he is not depressed as he does not experience sadness. Provided psychoeducation on depressive symptoms. Raimundo identified the following: SI; feelings of guilt, worthlessness, and hopelessness; sleep disturbance; low energy; and difficulty concentrating. Provided psychoeducation on behavioral activation and worked on helping Raimundo recognize social, productive, pleasant, and physical tasks he can use to reduce depressive symptoms. Future-oriented. Protective factors reviewed as well as reframing interventions he can use when he experiences SI. Worked on thought patterns connected to SI using CBT interventions. . Exam Mental Status Exam - Psych Appearance casually dressed and adequately groomed Attitude cooperative, calm and engaged Activity/Motor Behavior MSE activity/motor behavior finding no adventitious movements and appropriate eye contact Speech regular rate, regular volume and regular prosody Mood OK Affect full range Thought Process linear, logical and coherent Thought Content no delusions and no hallucinations Suicidal Ideation passive Homicidal Ideation none Attention intact Concentration intact Sensorium/Orientation awake, alert and oriented x3 Memory/Cognition impaired (per patient self report ) Insight good Judgement good Assessment Plan Assessment Plan (1) Major depressive disorder with current active episode: Qualifiers: Major depression recurrence: unspecified whether recurrent Major depression episode severity: unspecified Qualified Code(s): F32.9 - Major depressive disorder, single episode, unspecified Plan: therapy using CBT, DBT, and ACT interventions to address thought patterns contributing to depressive symptoms and teach coping skills. Continued psychiatric services to monitor depressive symptoms and medication effectiveness. Pt. to call 911, call suicide prevention hotline, or go to ER if experiencing suicidal ideation with plan and intent and/or feel unable to ensure own safety. (2) SHAYY (generalized anxiety disorder): Plan: therapy using CBT, DBT, and ACT interventions to address thought patterns contributing to anxious symptoms and to teach coping skills. Psychiatric ser (more content not included)... Normal [facility] MR/BPon 12-10-2024 MR/[facility]. [facility] [facility], [address] [place] [address] OFFICE VISIT Date of Service: 12/10/24 MR#: [id number] Acct: [id number] Name: RAIMUNDO SCHROEDER Rep #: [id number] : 1980 Provider: MASHA sim Age/Sex: 44/M Location: [place].BP Status: Signed Intake Vital Signs 11/05/24 09:57 11/26/24 11:00 12/10/24 10:02 Height 6 ft 6 ft 6 ft Weight: 203 lb BMI 27.5 BP 110/73 Blood Pressure Location Lt brachial Position Sitting Respiration 16 Pulse 63 Pulse Source Monitor BP Intake Visit Reasons: 6 wk FU Accompanied by: Self Allergies poison danielle extract Allergy (Severe, Verified 12/10/24 10:03) Rash Medications ???Medication ???Instructions ???Recorded ???Confirmed ???Type ibuprofen 200 mg tablet (Advil) 400 mg PO Q8H PRN pain 07/13/24 History sildenafil 25 mg tablet (Viagra) 25 mg PO QDAY PRN sexual activity 08/26/24 12/10/24 Rx #30 tabs ammonium lactate 12 % lotion topical BID 12/10/24 12/10/24 Hist ory escitalopram oxalate 10 mg tablet 10 mg PO QDAY #90 tabs 12/10/24 0 12/10/24 Rx trazodone 50 mg tablet 50 mg PO QHS #30 tabs 12/10/2403/29 Rx PFSH Medical History Arthritis High cholesterol Heartburn History of closed shoulder dislocation Loss of hearing Depression Anxiety Marijuana use Alcohol use Restless legs Back pain History of pain when walking Former smoker Anal or rectal pain Colon cancer screening Preventative health care Right groin pain Bilateral carpal tunnel syndrome Scoliosis Seasonal allergies Surgical History History of carpal tunnel repair H/O Spinal surgery History of vasectomy Social History adopted: No household members: significant other number of children: 1 current occupational status: employed 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 pets and animals: Yes pets and animals: cat(s), dog(s) and fish sexually active: Yes Smoking Status: Former smoker quit date: 08/04/08 Tobacco: How many years used: 10 alcohol intake: current alcohol intake frequency: a few times a week Alcohol type: beer, wine and hard liquor substance use type: marijuana caffeine: Yes (2-3) Type: coffee what type of physical activity do you participate in: weight training and other details: LABOR frequency: 3-4 times per week seatbelt use: always do you feel safe at home: Yes HPI History of Present Illness History provided by: patient HPI: Raimundo Schroeder is a 44 year old male patient presenting today for a follow up evaluation. Reports he has been feeling about the same as last appointment. Did have to stop bupropion due to increased SI with medication. Reports feeling a loss of interest, loss of energy, sleep concerns, worthlessness, hopelessness, and guilt frequently. Does feel sleep is a large concern for him and feels mood symptoms are worsened from 12-4 in the morning. Denies concerns falling asleep but does voice concerns with staying asleep. Reports difficulties staying asleep 5-7 days per week. Is getting sometimes 4-6 hours of interrupted sleep. Denies ever feeling well rested or like he has energy. Reports feeling motivated to complete tasks but does not necessarily use motivation to do things he enjoys. Admits to some passive SI. Denies plan or intent. Denies any changes in appetite. Admits to feelings of anxiety most times. Does feel escitalopram has been beneficial for anxiety. Previous similar episode: Yes Age of first onset of symptoms: 31-40 years Review of Systems Constitutional Reports: change in weight (gain), fatigue and change in sleep pattern; Denies: fever(s) or chills Eyes Reports: floaters Ears, Nose, Mouth, Throat Reports: neck pain and tinnitus Cardiovascular Denies: chest pain, palpitations or orthopnea Respiratory Denies: wheezing Gastrointestinal Reports: change in bowel habits Genitourinary Reports: urinary urgency and change in libido (new) Musculoskeletal Reports: back pain, neck pain, joint pain and muscle cramps (at night) Integumentary/Breast Denies: rash, pruritus or erythema Neurological Reports: headache(s) Psychiatric Reports: anxiety, change in sleep pattern, hopelessness, loss of interest, irritability, paranoia, memory loss and suicidal ideation (passive); Denies: panic attacks, difficulty concentrating, visual hallucinations or auditory hallucinations Endocrine Reports: fatigue and change in libido (new) Allergic/Immunologic Denies: wheezing Exam Mental Status Exam - Psych Appearance casually dressed, adequately groomed and no apparent distress Attitude cooperative and calm Activity/Motor Behavior MSE activity/ (more content not included)... Normal [facility] MR/BMS.BPon 11-26-2024 MR/BMS.BP [facility] [address] [place] [address], [address] [place] [id number] OFFICE VISIT Date of Service: 11/26/24 MR#: [id number] Acct: [id number] Name: RAIMUNDO SCHROEDER Rep #: [id number] : 1980 [facility] Age/Sex: 44/M Location: [place].BP Status: Signed Intake Vital Signs 09/03/24 09:57 11/05/24 09:57 11/26/24 11:00 Height 6 ft 6 ft 6 ft BP Intake Visit Reasons: Follow up Allergies poison danielle extract Allergy (Severe, Verified 09/15/24 11:49) Rash [facility] Medical History Arthritis High cholesterol Heartburn History of closed shoulder dislocation Loss of hearing Depression Anxiety Marijuana use Alcohol use Restless legs Back pain History of pain when walking Former smoker Anal or rectal pain Colon cancer screening Preventative health care Right groin pain Bilateral carpal tunnel syndrome Scoliosis Seasonal allergies Surgical History History of carpal tunnel repair H/O Spinal surgery History of vasectomy Social History adopted: No household members: significant other number of children: 1 current occupational status: employed 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 pets and animals: Yes pets and animals: cat(s), dog(s) and fish sexually active: Yes Smoking Status: Former smoker quit date: 08/04/08 Tobacco: How many years used: 10 alcohol intake: current alcohol intake frequency: a few times a week Alcohol type: beer, wine and hard liquor substance use type: marijuana caffeine: Yes (2-3) Type: coffee what type of physical activity do you participate in: weight training and other details: LABOR frequency: 3-4 times per week seatbelt use: always do you feel safe at home: Yes HPI History of Present Illness HPI: Raimundo Schroeder is a 44 year-old male returning for therapy. He initially reported that he was doing well and had little to discuss. Raimundo denied any recent conflicts between him and his significant other. He described being intentional with his communication and trying to avoid unkind or unproductive comments, which was reinforced. Raimundo reported that significant other is reducing her work hours. He believes is positive due to anxiety her jobs create for her and is happy about it. Worked on communication. Provided psychoeducation and handout on [employer]'s [employer] Horseman and their Antidotes. Provided psychoeducation and handout on [employer]. Discussed how to implement both couples skills into daily living. Raimundo identified some sleep disturbance. Provided handout and psychoeducation on sleep protocol particularly sleep meditation. He requested information on [facility] treatment, in this area, for his depressive symptoms. He was provided contact information. Raimundo reported having been on Wellbutrin for 3 weeks and having a night where he had thoughts of writing a suicide note should he ever become suicidal. He denied any suicidal plan or intent and confusion as to why he would have this thought as stressors are reduced, work projects going well, had positive holiday event with family, recent couples therapy session went well, and positive weather helping him. He denied access to any weapons. Raimundo stated he did not write this note and knew it was a bad idea. He questioned whether the Wellbutrin could be contributing to him having this thought as he has never had the thought before. Discussed utilizing 911, ER, or suicide prevention hotline if his thoughts worsened and/or he believed that he could not ensure his safety. Had Judith Weaver CNP join session to provide feedback regarding Wellbutrin. She recommended that Raimundo stop taking the Wellbutrin due to the thought he had, and he agreed to do so. Raimundo presented as future-oriented to exploring [facility] treatment and to work projects. He identified his child, mother, significant other, significant other's son, and activities he enjoys as protective factors. Exam Mental Status Exam - Psych Appearance casually dressed, adequately groomed and no apparent distress Attitude cooperative, calm and engaged Activity/Motor Behavior MSE activity/motor behavior finding no adventitious movements and appropriate eye contact Speech regular rate, regular volume and regular prosody Mood OK Affect congruent Thought Process linear, logical and coherent Thought Content no delusions and no hallucinations Suicidal Ideation passive (Passive SI with no plan or intent. Fleeting preparation thought.) Homicidal Ideation none Attention intact Concentration intact Sensorium/Orientation alert and oriented x3 Memory/Cognition intact Insight good Judgement good Assessment Plan Assessment Plan (more content not included)... Normal [facility] MR/BMS.BPon 11-13-2024 MR/BMS.BP [facility] [facility], [address] [place] [id number] OFFICE VISIT Date of Service: 11/12/24 MR#: [id number] Acct: [id number] Name: RAIMUNDO SCHROEDER Rep #: [id number] : 1980 [facility] Age/Sex: 44/M Location: [place].BP Status: Signed Intake Vital Signs 09/03/24 09:57 11/05/24 09:57 11/13/24 07:21 Height 6 ft 6 ft 6 ft BP Intake Visit Reasons: Follow up Allergies poison danielle extract Allergy (Severe, Verified 09/15/24 11:49) Rash [facility] Medical History Arthritis High cholesterol Heartburn History of closed shoulder dislocation Loss of hearing Depression Anxiety Marijuana use Alcohol use Restless legs Back pain History of pain when walking Former smoker Anal or rectal pain Colon cancer screening Preventative health care Right groin pain Bilateral carpal tunnel syndrome Scoliosis Seasonal allergies Surgical History History of carpal tunnel repair H/O Spinal surgery History of vasectomy Social History adopted: No household members: significant other number of children: 1 current occupational status: employed 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 pets and animals: Yes pets and animals: cat(s), dog(s) and fish sexually active: Yes Smoking Status: Former smoker quit date: 08/04/08 Tobacco: How many years used: 10 alcohol intake: current alcohol intake frequency: a few times a week Alcohol type: beer, wine and hard liquor substance use type: marijuana caffeine: Yes (2-3) Type: coffee what type of physical activity do you participate in: weight training and other details: LABOR frequency: 3-4 times per week seatbelt use: always do you feel safe at home: Yes HPI History of Present Illness HPI: Raimundo Schroeder is a 44 year-old male returning for therapy. He reported recently being prescribed Wellbutrin stating it was being added to his dose of Lexapro as he has experienced a slight increase in depressive symptoms. Explored triggers to recent feelings of depression with Raimundo identifying concerns that his romantic relationship could end, concern as his job is connected to the relationship and would be impacted if the relationship ended, and recent triggers to unresolved emotions about his past divorce. Encouraged verbalization of emotions while providing support. Discussed recent couples counseling and Raimundo being upset that his partner expressed not liking a joke he told. Raimundo discussed disagreeing with the joke being problematic and feeling frustrated with her. He also discussed other situations where he believes others' relationships are ending for insignificant reasons. Explored his interaction patterns when he does not agree with partner. Raimundo recognized a pattern of doubling down on his viewpoint. Helped Raimundo examine consequences of this pattern. Worked on increasing interactions that validate his partner and evaluating whether his responses creates connection or distance. Explored prompts or reminders he can use to be intentional about implementing positive interactions/response s. Raimundo discussed struggling with the vulnerability that validating his partner would create. He identified a time of recently being vulnerable with his partner. Reinforced his efforts and explored outcome, which Raimundo recognized as his partner being vulnerable with him. He reported some passive SI and denied any plan or intent. Raimundo presented as future-oriented. He reported a recent positive interaction with his child and child's friends where he took value-based action and was accepting. Exam Mental Status Exam - Psych Appearance casually dressed and adequately groomed Attitude engaged Activity/Motor Behavior MSE activity/motor behavior finding no adventitious movements and appropriate eye contact Speech regular rate, regular volume and regular prosody Mood depressed, anxious and irritable Affect sad, anxious and irritable Thought Process linear, logical, coherent and goal directed Thought Content no delusions, no hallucinations and ruminations (Related to romantic relationship.) Suicidal Ideation passive (No suicidal plan or intent.) Homicidal Ideation none Attention intact Concentration intact Sensorium/Orientation alert and oriented x3 Memory/Cognition intact Insight good Judgement good Assessment Plan Assessment Plan (1) Major depressive disorder with current active episode: Qualifiers: Major depression recurrence: unspecified whether recurrent Major depression episode severity: unspecified Qualified Code(s): F32.9 - Major depressive disorder, single episode, unspecified Plan: therapy using CBT, DBT, and ACT inter (more content not included)... Normal [facility] MR/BMS.BPon 11-05-2024 MR/BMS.BP [facility] [facility], [address] [place] [address] OFFICE VISIT Date of Service: 11/05/24 MR#: [id number] Acct: [id number] Name: RAIMUNDO SCHROEDER Rep #: [id number] : 1980 Provider: MASHA sim Age/Sex: 44/M Location: [place].BP Status: Signed Intake Vital Signs 09/03/24 09:57 10/01/24 10:37 10/27/24 10:16 11/05/24 09:57 Height 6 ft 6 ft 6 ft 6 ft BP Intake Visit Reasons: 8wfu Allergies poison danielle extract Allergy (Severe, Verified 09/15/24 11:49) Rash [facility] Medical History Arthritis High cholesterol Heartburn History of closed shoulder dislocation Loss of hearing Depression Anxiety Marijuana use Alcohol use Restless legs Back pain History of pain when walking Former smoker Anal or rectal pain Colon cancer screening Preventative health care Right groin pain Bilateral carpal tunnel syndrome Scoliosis Seasonal allergies Surgical History History of carpal tunnel repair H/O Spinal surgery History of vasectomy Social History adopted: No household members: significant other number of children: 1 current occupational status: employed 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 pets and animals: Yes pets and animals: cat(s), dog(s) and fish sexually active: Yes Smoking Status: Former smoker quit date: 08/04/08 Tobacco: How many years used: 10 alcohol intake: current alcohol intake frequency: a few times a week Alcohol type: beer, wine and hard liquor substance use type: marijuana caffeine: Yes (2-3) Type: coffee what type of physical activity do you participate in: weight training and other details: LABOR frequency: 3-4 times per week seatbelt use: always do you feel safe at home: Yes HPI History of Present Illness History provided by: patient HPI: Raimundo Schroeder is a 44 year old male patient presenting today for a follow up evaluation. reports he has been doing well. Does report he has been seeing Jolly and reports still exhibiting feelings of depression. Does report he has been struggling with finding maicol in things. Does report a decreased sex drive more recently. Has had his testosterone level checked about 4-5 months ago and does report it was normal. Is able to get up and work but otherwise does not want to do anything. Admits to difficulties in finding motivation to do things at times with doing the normal stuff. Does also have some new body aches and pains that contribute to not doing some physical activities he has done in the past. Admits to some passive SI. Denies plan or intent. Denies any issues with focus, concentration, or inattention. Sleep has not been good. Has been waking up often in the middle of the night but denies issues falling asleep. Does report he has been overeating. Admits to a lack of energy. Admits to feelings of anxiety. Does report he has noticed some benefit from escitalopram. Previous similar episode: Yes Age of first onset of symptoms: 31-40 years Review of Systems Constitutional Reports: fatigue and change in sleep pattern Eyes Reports: floaters Ears, Nose, Mouth, Throat Reports: neck pain and tinnitus Cardiovascular Denies: chest pain, palpitations or orthopnea Respiratory Denies: wheezing Gastrointestinal Reports: change in bowel habits Genitourinary Reports: urinary urgency and change in libido (new) Musculoskeletal Reports: back pain, neck pain, joint pain and muscle cramps (at night) Integumentary/Breast Denies: rash, pruritus or erythema Neurological Reports: headache(s) Psychiatric Reports: anxiety, change in sleep pattern, hopelessness, loss of interest, irritability, paranoia, memory loss and suicidal ideation (passive); Denies: panic attacks, difficulty concentrating, visual hallucinations or auditory hallucinations Endocrine Reports: fatigue and change in libido (new) Allergic/Immunologic Denies: wheezing Exam Mental Status Exam - Psych Appearance casually dressed, adequately groomed and no apparent distress Attitude cooperative and calm Activity/Motor Behavior MSE activity/motor behavior finding no adventitious movements and appropriate eye contact Speech regular rate, regular volume and regular prosody Mood OK Affect full range Thought Process linear, logical and coherent Thought Content no delusions and no hallucinations Suicidal Ideation passive; No intent and No plans Homicidal Ideation none Attention intact Concentration intact Sensorium/Orientation awake, alert and oriented x3 Memory/Cognition impaired (per patient self report ) Insight good Judgement good Exam Constitutional Common normals: no acute distress, averag (more content not included)... Normal [facility] MR/BMS.BPon 10-27-2024 MR/BMS.BP [facility], [address] [place] [address] OFFICE VISIT Date of Service: 10/27/24 MR#: [id number] Acct: [id number] Name: RAIMUNDO SCHROEDER Rep #: [id number] : 1980 [facility] Age/Sex: 44/M Location: [place].BP Status: Signed Intake Vital Signs 09/03/24 09:57 10/01/24 10:37 10/27/24 10:16 Height 6 ft 6 ft 6 ft BP Intake Visit Reasons: Follow up Allergies poison danielle extract Allergy (Severe, Verified 09/15/24 11:49) Rash [facility] Medical History Arthritis High cholesterol Heartburn History of closed shoulder dislocation Loss of hearing Depression Anxiety Marijuana use Alcohol use Restless legs Back pain History of pain when walking Former smoker Anal or rectal pain Colon cancer screening Preventative health care Right groin pain Bilateral carpal tunnel syndrome Scoliosis Seasonal allergies Surgical History History of carpal tunnel repair H/O Spinal surgery History of vasectomy Social History adopted: No household members: significant other number of children: 1 current occupational status: employed 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 pets and animals: Yes pets and animals: cat(s), dog(s) and fish sexually active: Yes Smoking Status: Former smoker quit date: 08/04/08 Tobacco: How many years used: 10 alcohol intake: current alcohol intake frequency: a few times a week Alcohol type: beer, wine and hard liquor substance use type: marijuana caffeine: Yes (2-3) Type: coffee what type of physical activity do you participate in: weight training and other details: LABOR frequency: 3-4 times per week seatbelt use: always do you feel safe at home: Yes HPI History of Present Illness HPI: Raimundo Schroeder is a 44 year-old male returning for therapy. He presented as irritable throughout the session and described increased anhedonia. Raimundo identified ongoing difficulty achieving orgasm and distress about the impact of this on his relationship and view of himself. He will discuss at his next psychiatric appointment. Raimundo asked for information on alternative counseling such as Ketamine treatment for depression and was given information about [facility] as a local option for Ketamine treatment. Raimundo is utilizing mindfulness techniques for thoughts and has found it helpful. Discussed CBT options to address thinking distortions/thoughts leading to painful emotions. Provided psychoeducation and a handout of thinking distortions. Assisted Raimundo in examining several recent triggering events using Triple Column / Thought Restructuring Worksheet. No SI. Future-oriented. Exam Mental Status Exam - Psych Appearance casually dressed and adequately groomed Attitude other (irritable) Activity/Motor Behavior MSE activity/motor behavior finding no adventitious movements and appropriate eye contact Speech regular rate, regular volume and regular prosody Mood irritable Affect irritable Thought Process coherent and goal directed Thought Content no delusions and no hallucinations Suicidal Ideation none Homicidal Ideation none Attention intact Concentration intact Sensorium/Orientation alert and oriented x3 Memory/Cognition intact Insight good Judgement good Assessment Plan Assessment Plan (1) Major depressive disorder with current active episode: Qualifiers: Major depression recurrence: unspecified whether recurrent Major depression episode severity: unspecified Qualified Code(s): F32.9 - Major depressive disorder, single episode, unspecified Plan: therapy using CBT, DBT, and ACT interventions to address thought patterns contributing to depressive symptoms and teach coping skills. Continued psychiatric services to monitor depressive symptoms and medication effectiveness. Pt. to call 911, call suicide prevention hotline, or go to ER if experiencing suicidal ideation with plan and intent and/or feel unable to ensure own safety. (2) SHAYY (generalized anxiety disorder): Plan: BH therapy using CBT, DBT, and ACT interventions to address thought patterns contributing to anxious symptoms and to teach coping skills. Psychiatric services to monitor anxious symptoms and medication effectiveness. Plan TREATMENT PLAN Goal 1 - Reduce depressive symptoms by 30% AEB pt.'s self-report. Objective 1 - Identify and replace thoughts and beliefs that support depression. Intervention 1 - Using CBT will help pt. learn the connection among thoughts, feelings, and behaviors. Intervention 2 - Facilitate and reinforce pt.'s shift from biased depressive self-talk and beliefs to reality-based cognitive messages that increase positive out (more content not included)... Normal [facility] MR/BMS.BPon 10-01-2024 MR/BMS.BP [facility] [place] [address] OFFICE VISIT Date of Service: 10/01/24 MR#: [id number] Acct: [id number] Name: RAIMUNDO SCHROEDER Rep #: [id number] : 1980 Provider: YOEL luciano Age/Sex: 44/M Location: [place].BP Status: Signed Intake Vital Signs 08/13/24 12:44 09/17/24 12:56 10/01/24 10:37 Height 6 ft 6 ft 6 ft BP Intake Visit Reasons: follow up Allergies poison danielle extract Allergy (Severe, Verified 09/15/24 11:49) Rash [facility] Medical History Arthritis High cholesterol Heartburn History of closed shoulder dislocation Loss of hearing Depression Anxiety Marijuana use Alcohol use Restless legs Back pain History of pain when walking Former smoker Anal or rectal pain Colon cancer screening Preventative health care Right groin pain Bilateral carpal tunnel syndrome Scoliosis Seasonal allergies Surgical History History of carpal tunnel repair H/O Spinal surgery History of vasectomy Social History adopted: No household members: significant other number of children: 1 current occupational status: employed 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 pets and animals: Yes pets and animals: cat(s), dog(s) and fish sexually active: Yes Smoking Status: Former smoker quit date: 08/04/08 Tobacco: How many years used: 10 alcohol intake: current alcohol intake frequency: a few times a week Alcohol type: beer, wine and hard liquor substance use type: marijuana caffeine: Yes (2-3) Type: coffee what type of physical activity do you participate in: weight training and other details: LABOR frequency: 3-4 times per week seatbelt use: always do you feel safe at home: Yes HPI History of Present Illness HPI: Raimundo Schroeder is a 44 year-old male returning for therapy. He identified doing well overall. Raimundo recently attended a family event with significant other, her parents, and his mother. He discussed struggles with believing his attempts to positively parent his daughter did not matter as she is struggling with MH symptoms. Encouraged verbalization of emotions while providing support. Worked on reframing and cognitive distortions particularly [id number] thinking and disqualifying the positive using CBT interventions. Raimundo acknowledged using these thought patterns. Explored the costs and benefits of them with him recognizing a negative as being the impact these thought patterns have on others and self. No reports of SI. Future-oriented. Exam Mental Status Exam - Psych Appearance casually dressed and well kempt Attitude calm and engaged Activity/Motor Behavior MSE activity/motor behavior finding no adventitious movements and appropriate eye contact Speech regular rate, regular volume and regular prosody Mood OK Affect restricted Thought Process linear, logical, coherent and goal directed Thought Content no delusions, no hallucinations and ruminations (Related to parenting.) Suicidal Ideation none Homicidal Ideation none Attention intact Concentration intact Sensorium/Orientation awake, alert and oriented x3 Memory/Cognition intact Insight good Judgement good Assessment Plan Assessment Plan (1) Major depressive disorder with current active episode: Qualifiers: Major depression recurrence: unspecified whether recurrent Major depression episode severity: unspecified Qualified Code(s): F32.9 - Major depressive disorder, single episode, unspecified Plan: therapy using CBT, DBT, and ACT interventions to address thought patterns contributing to depressive symptoms and teach coping skills. Continued psychiatric services to monitor depressive symptoms and medication effectiveness. Pt. to call 911, call suicide prevention hotline, or go to ER if experiencing suicidal ideation with plan and intent and/or feel unable to ensure own safety. (2) SHAYY (generalized anxiety disorder): Plan: BH therapy using CBT, DBT, and ACT interventions to address thought patterns contributing to anxious symptoms and to teach coping skills. Psychiatric services to monitor anxious symptoms and medication effectiveness. Plan TREATMENT PLAN Goal 1 - Reduce depressive symptoms by 30% AEB pt.'s self-report. Objective 1 - Identify and replace thoughts and beliefs that support depression. Intervention 1 - Using CBT will help pt. learn the connection among thoughts, feelings, and behaviors. Intervention 2 - Facilitate and reinforce pt.'s shift from biased depressive self-talk and beliefs to reality-based cognitive messages that increase positive outlook and adaptive actions Visit Details Duration of visit (minutes): 60 Duration (more content not included)... [facility] Office Visit (PODIWS ) RAIMUNDO SCHROEDER ([id number]) 1980 M Date Time Provider Department 09/29/24 1:30 PM VERONICA PAGAN PODIWS During your visit today, we recorded the following information about you: Alisha Corcoran MA 09/29/2024 2:04 PM Signed Patient presents with: Left Foot - Follow Up: Ultrasound results AMB ROOMING INTAKE FLOWSHEET DATA Pain Pain Level: (4-6) Pain Location: Foot-Left Description: Aching Duration Amount of Time: (Ongoing) Frequency: Intermittent Intervention/Comfort measure: Medication Patient states he is taking Ibuprofen for the pain and is not sure it helps. Here for US results. Veronica Pagan 09/29/2024 2:04 PM Signed FOLLOW UP PODIATRIC OFFICE VISIT Chief Complaint: This 44 year old who presents for follow up:left foot pain Patient presents to clinic for follow-up left foot pain Patient has pain to the ball of left foot that has been going on for 1-1.5 years. Has tried ibuprofen and not sure if that helps Has tried over the counter inserts but the inserts make his pain worse. States the pain varies between 4-6 out of 10. Has ultrasound to review PAIN EVALUATION 09/23/2024 0852 09/29/2024 1318 Pain Level: 8 -- 4-6 Pain Location: Foot-Left Foot-Left Description: -- Aching Duration Amount of Time: -- -- Ongoing Frequency: -- Intermittent Intervention/Comfort measure: -- Medication No results found for: HBA1C PCP: Robina Blum MD PAST MEDICAL HISTORY Diagnosis [facility] Hyperlipidemia resolved with diet and weight loss Rosacea Scoliosis s/p macey placement age 14 Seasonal allergies Shoulder dislocation 2018 left Current Outpatient Medications Medication Sig escitalopram oxalate (LEXAPRO) 10 mg tablet Take 1 tablet by mouth every afternoon. ammonium lactate (LAC-HYDRIN) 12 % lotion sildenafil (VIAGRA) 25 mg tablet Take 25 mg by mouth once daily as needed. diphenhydrAMINE (BENADRYL) 25 mg tablet Take 25 mg by mouth every 6 hours as needed. ibuprofen (ADVIL) 200 mg tablet Take 200 mg by mouth every 6 hours as needed for pain. sertraline (ZOLOFT) 50 mg tablet Take 50 mg by mouth once daily. (Patient not taking: Reported on 09/29/2024) oxyCODONE IR (ROXICODONE) 5 mg immediate release tablet Take 5 mg by mouth every 6 hours as needed. No current facility-administered medications for this visit. ALLERGIES Allergen Reactions Poison Danielle Extract Rash PAST SURGICAL HISTORY Procedure Laterality Date SCOLIOSIS surgery at age 14 VASECTOMY UNI/BI SPX W/POSTOP SEMEN EXAMS 2018 Physical Exam: OBJECTIVE: Constitutional: Pt is a well developed 44 year old male who is alert, oriented, cooperative and in no apparent distress. Eyes: Following during examination. No redness or drainage. Respiratory: RR normal and nonlabored. Even breathing. No evidence of distress. Psychology: Patient is engaged during conversation. Normal affect and mood. Does not appear depressed or anxious. NVSI unchanged from previous visit. Dermatological: Nails 1-5 b/l are normal. Webspaces clean and dry 1-4 b/l. Skin appears well hydrated and supple. good color, texture, turgor. No open lesions present. No callosities present. Musculoskeletal/Ortho paedic: Patient has pain to palpation of left 2nd metatasral head, plantar lateral aspect No pain to palpation of left 2ndinterspace No nitish click MILD SECOND INTERMETATARSAL PLANTAR NERVE THICKENING WITHOUT ARAUJO'S NEUROMA. MILD INTERMETATARSAL BURSITIS. SECOND MTP LATERAL PLANTAR PLATE TEAR, DETAILED. ASSESSMENT: (O30.852V) Plantar plate injury, left, sequela (primary encounter diagnosis) PLAN: I had long discussion with patient regarding his pain. He has pain mostly along the plantar lateral aspet of left 2nd mtpj. This I suspect is more related to plantar plate rather than bursitis I discussed options not limited to inserts (which made his pain worse), vs taping vs prp injection vs surgical intervention From a surgical intervention, we discussed direct repair via plantar approach, indirect repair via lynne osteotomy and industry manufactured suture device vs fdl tendon transfer. Patient wishes to hold on surgery for now if possible. Will try taping and I will discuss with sports health regarding prp injection. Discussed possible higher costs associated with prp All questions answered. Patient satisfied with discuss Can follow-up in 4 weeks or so to see how he is doing Veronica Pagan DPM Allergies As of Date: 09/29/2024 Noted Allergy Reaction POISON DANIELLE EXTRACT 07/12/2023 2 - Rash Date Reviewed: 09/29/2024 Reviewed by: Alisha Corcoran MA - Fully Assessed Reason for Visit: Follow Up [171] Cmt: Ultrasound results Primary Visit Diagnosis:Plantar plate injury, left, sequela [M03.022V] Prescriptions as of 09/29/2024 - escitalop (more content not included)... Normal [facility] MR/BMS.BPon 09-17-2024 MR/BMS.BP [facility] [address], [address] [place] [address] OFFICE VISIT Date of Service: 09/17/24 MR#: [id number] Acct: [id number] Name: RAIMUNDO SCHROEDER Rep #: [id number] : 1980 Provider: [facility] Jolly luciano Age/Sex: 44/M Location: [place].BP Status: Signed Intake Vital Signs 07/06/24 11:04 09/15/24 11:51 09/17/24 12:56 Height 6 ft 6 ft 6 ft BP Intake Visit Reasons: follow up Allergies poison danielle extract Allergy (Severe, Verified 09/15/24 11:49) Rash [facility] Medical History Arthritis High cholesterol Heartburn History of closed shoulder dislocation Loss of hearing Depression Anxiety Marijuana use Alcohol use Restless legs Back pain History of pain when walking Former smoker Anal or rectal pain Colon cancer screening Preventative health care Right groin pain Bilateral carpal tunnel syndrome Scoliosis Seasonal allergies Surgical History History of carpal tunnel repair H/O Spinal surgery History of vasectomy Social History adopted: No household members: significant other number of children: 1 current occupational status: employed 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 pets and animals: Yes pets and animals: cat(s), dog(s) and fish sexually active: Yes Smoking Status: Former smoker quit date: 08/04/08 Tobacco: How many years used: 10 alcohol intake: current alcohol intake frequency: a few times a week Alcohol type: beer, wine and hard liquor substance use type: marijuana caffeine: Yes (2-3) Type: coffee what type of physical activity do you participate in: weight training and other details: LABOR frequency: 3-4 times per week seatbelt use: always do you feel safe at home: Yes HPI History of Present Illness HPI: Raimundo is a 44 year-old male returning for therapy. He reported ongoing continued reduction of depression. Raimundo had recent psychiatric appointment with Judith Weaver CNP and is reducing Zoloft and starting Lexapro. He reported irritability and sexual problems (can achieve an erection by not orgasm). Provided psychoeducation on connection between irritability and anxiety. Encouraged Raimundo to discuss sexual concerns with his PCP. He has been evaluated for low testosterone but results showed testosterone levels to be normal. Also encouraged him to discuss potential for sexual side effects of medication with Judith Weaver CNP, which he stated he had done. Explored thinking that contributed to anxiety about sexual performance and addressed using CBT interventions. Raimundo did discuss sexual concerns at his last couples therapy, which was reinforced. He stated that doing so was helpful. Discussed frustrations with parenting. Encouraged verbalization of emotions while providing support. Worked with Raimundo to help him identify what he can and cannot control. Explored values and worked on value-based action. No SI. Future-oriented. Exam Mental Status Exam - Psych Appearance casually dressed, no apparent distress and well kempt Attitude cooperative, calm, engaged and pleasant Activity/Motor Behavior appropriate eye contact and fidgeting Speech regular rate, regular volume and regular prosody Mood OK Affect full range Thought Process linear, logical, coherent and goal directed Thought Content no delusions, no hallucinations and ruminations (related to parenting and sexual performance) Suicidal Ideation none Homicidal Ideation none Attention intact Concentration intact Sensorium/Orientation alert and oriented x3 Memory/Cognition intact Insight good Judgement good Assessment Plan Assessment Plan (1) Major depressive disorder with current active episode: Qualifiers: Major depression recurrence: unspecified whether recurrent Major depression episode severity: unspecified Qualified Code(s): F32.9 - Major depressive disorder, single episode, unspecified Plan: TREATMENT PLAN Goal 1 - Reduce depressive symptoms by 30% AEB pt.'s self-report. Objective 1 - Identify and replace thoughts and beliefs that support depression. Intervention 1 - Using CBT will help pt. learn the connection among thoughts, feelings, and behaviors. Intervention 2 - Facilitate and reinforce pt.'s shift from biased depressive self-talk and beliefs to reality-based cognitive messages that increase positive outlook and adaptive actions (2) SHAYY (generalized anxiety disorder): Plan: BH therapy using CBT, DBT, and ACT interventions to address thought patterns contributing to anxious symptoms and to teach coping skills. Psychiatric services to monitor anxious symptoms and medication effectiveness. Visit Details Duration of visit (minutes): 60 Duration (more content not included)... Normal [facility] Colonoscopy Reporton 025 Colonoscopy Report [facility] Medical Records Department [address] [place] [address] Colonoscopy Report MR#: [id number] Acct: [id number] Name: RAIMUNDO SCHROEDER Rep #: [id number] : 1980 44 From: Shaheed Friend PCP: Dr. Nic Samuels MD [place] Name: Raimundo Schroeder Procedure Date: 09/15/2024 12:57 PM Date of : 1980 Age: 44 Procedure: Colonoscopy Indications: Screening for colorectal malignant neoplasm Providers: Shaheed Hays DO Referring MD: Nic Samuels MD Medicines: Monitored Anesthesia Care Patient Profile: This is a 44 year old male. Refer to note in patient chart for documentation of history and physical. Last Colonoscopy: none. The patient's first colonoscopy is today. Last Colonoscopy: none. The patient's first colonoscopy is today. Complications: No immediate complications. Procedure: Pre-Anesthesia Assessment: - Prior to the procedure, a History and Physical was performed, and patient medications and allergies were reviewed. The patient is competent. The risks and benefits of the procedure and the sedation options and risks were discussed with the patient. All questions were answered and informed consent was obtained. Patient identification and proposed procedure were verified by the physician in the pre-procedure area. Mental Status Examination: alert and oriented. Airway Examination: normal oropharyngeal airway and neck mobility. Respiratory Examination: clear to auscultation. CV Examination: normal. Prophylactic Antibiotics: The patient does not require prophylactic antibiotics. Prior Anticoagulants: The patient has taken no anticoagulant or antiplatelet agents. ASA Grade Assessment: II - A patient with mild systemic disease. After reviewing the risks and benefits, the patient was deemed in satisfactory condition to undergo the procedure. The anesthesia plan was to use monitored anesthesia care (MAC). Immediately prior to administration of medications, the patient was re-assessed for adequacy to receive sedatives. The heart rate, respiratory rate, oxygen saturations, blood pressure, adequacy of pulmonary ventilation, and response to care were monitored throughout the procedure. The physical status of the patient was re-assessed after the procedure. After I obtained informed consent, the scope was passed under direct vision. Throughout the procedure, the patient's blood pressure, pulse, and oxygen saturations were monitored continuously. The Colonoscope was introduced through the anus and advanced to the cecum, identified by appendiceal orifice and ileocecal valve. The colonoscopy was performed without difficulty. The patient tolerated the procedure well. The quality of the bowel preparation was adequate. The ileocecal valve, appendiceal orifice, and rectum were photographed. Findings: An anal fissure was found on perianal exam. The perianal and digital rectal examinations were normal. Non-bleeding internal hemorrhoids were found during retroflexion. The hemorrhoids were Grade I (internal hemorrhoids that do not prolapse). A 3 mm polyp was found in the rectum. The polyp was sessile. The polyp was removed with a cold biopsy forceps. Resection and retrieval were complete. Verification of patient identification for the specimen was done. Biopsies were taken with a cold forceps for histology. Verification of patient identification for the specimen was done. Estimated blood loss was minimal. Impression: - Anal fissure found on perianal exam. - Non-bleeding internal hemorrhoids. - One 3 mm polyp in the rectum, removed with a cold biopsy forceps. Resected and retrieved. Biopsied. Recommendation: - Repeat colonoscopy in 5 years for surveillance. - Continue present medications. Procedure Code(s): --- Professional --- 23446, Colonoscopy, flexible; with biopsy, single or multiple CPT copyright 2021 [employer]. All rights reserved. The codes documented in this report are preliminary and upon compressor operator portable review may be revised to meet current compliance requirements. Shaheed Hays DO 09/15/2024 1:34:58 PM This report has been signed electronically. Number of Addenda: 0 Note Initiated On: 09/15/2024 12:57 PM 09/15/24 1335 Date Shaheed Hays DO Cosigner Signature: Date (if indicated) CC: Dr. Nic Samuels MD; Shaheed Hays DO Date Dictated: 09/15/24 1257 Date Transcribed: Food Service Steward: TIMUR Signed [facility] MR/POSTOP.Jae 09-15-2024 MR/POSTOP.[facility] Medical Records Department [address] [place] [address] Anesthesia Postop Eval I 09/15/24 1338 MR#: [id number] Acct: [id number] Name: RAIMUNDO SCHROEDER #: [id number] : 1980 44 From: Vahid Chapa PCP: Dr. Nic Samuels MD [place] [place] C Location: [place] [address] Anesthesia: Postop Eval I Current Vital Signs Temperature: 97.2 F Pulse Rate: 79 Blood Pressure: 114/100 Respiratory Rate: 16 Pulse Ox: 95 Oxygen Delivery Method: Room Air Assessment Airway patent: Yes Spontaneous unlabored respirations: Yes Mental status: Asleep nausea: No Vomiting: No Anesthesia Complication: No Fluid Hydration Crystalloid volume administer (ml): 60 Total IV fluid infused: 60 Progress Note Anesthesia document: Postop Eval 1 completed: Yes 09/15/24 1339 Date Vahid Chapa Cosigner Signature: Date CC: Signed Normal [facility] MR/ESNSHZAB1jw 09-15-2024 /[facility] Medical Records Department [address] [place] [id number] Anesthesia Postop Eval II 09/15/24 1827 MR#: [id number] Acct: [id number] Name: RAIMUNDO SCHROEDER R Rep #: [id number] : 1980 44 From: Geremias Almeida MD PCP: Dr. Nic Samuels MD Status:[facility] Y Race: C Location: [place] Anesthesia Postop Eval I Sum Postop Eval Completion status Anesthesia document: Postop Eval 1 completed: Yes Anesthesia Postop Eval I Summary Anesthesia Postop Eval I Summary: Anesthesia Postop Eval I: Assessment Summary Airway patent Yes 09/15/24 13:39 [email or web address] Spontaneous unlabored Yes 09/15/24 13:39 [email or web address] respirations Mental status Asleep 09/15/24 13:39 [email or web address] nausea No 09/15/24 13:39 [email or web address] Vomiting No 09/15/24 13:39 [email or web address] Anesthesia Postop Eval I: Fluid Summary Crystalloid volume administer 60 09/15/24 13:39 [email or web address] (ml) Colloids volume administered ( ml) Blood Product volume administered (ml) Total IV fluid infused 60 09/15/24 13:39 [email or web address] Anesthesia Postop Eval I: Summary Notes Anesthesia Complication No 09/15/24 13:39 [email or web address] Anesthesia Complication Comment: Post-operative progress note Anesthesia: Postop Eval II Evaluation Mental status: Awake and Calm Pain Level: 0 nausea: No Vomiting: No Complications Anesthesia Complication: No 09/15/24 1828 Date Geremias Hardin Signature: Date CC: Signed Normal [facility] Surgery Specimen Level Arcenio 09-15-2024 Surgery Specimen Level IV -------- Patient Age/Sex Location Account Attending Physician -------- RAIMUNDO SCHROEDER/Tatiana GILL [id number] Shaheed Hays DO -------- Specimen: [id number] Received: 09/16/24 Status: DERICK Shukla Num: [id number] Spec Type: COLON BX Subm Dr: Shaheed Hays, DO HEADER OPERATION: Colonoscopy with biopsy PRE-OP DIAGNOSIS: Colon screening TISSUE SUBMITTED: Rectal polyp biopsy -------- MICROSCOPIC DIAGNOSIS Rectal polyp, biopsy: Hyperplastic polyp. [facility] 09/17/2024 MICROSCOPIC DESCRIPTION Slides are reviewed. GROSS DESCRIPTION Received in fixative is one container labeled with the patient's name and designated Rectal polyp biopsy. The specimen consists of one irregular fragment of light borjas soft tissue that measures 0.3 x 0.2 x 0.1 cm. The specimen is totally submitted in one cassette. . 09/16/2024 TC:1 CPT:96076 -------- Patient Age/Sex Location Account Attending Physician -------- RAIMUNDO SCHROEDER 44/M EN [id number] Shaheed Hays DO -------- Signed (signature on file) Dr. Cristofer Hernandez MD 09/17/24 1332 -------- Normal [facility] Comment on above: Performed By: #### P SUIV ####[facility] [address] [place], [place], [id number] /[place].BPon 09-04-2024 /[place].[address], [facility] [address] [place], [place] [address] OFFICE VISIT Date of Service: 09/03/24 MR#: [id number] Acct: [id number] Name: RAIMUNDO SCHROEDER Rep #: [id number] : 1980 Provider: [facility] Jolly luciano Age/Sex: 44/M Location: [place]. Status: Signed Intake Vital Signs 07/06/24 11:04 08/13/24 12:44 09/04/24 06:26 Height 6 ft 6 ft 6 ft BP Intake Visit Reasons: follow up Allergies poison danielle extract Allergy (Severe, Verified 09/03/24 10:10) Rash [facility] Medical History Loss of hearing Depression Anxiety Marijuana use Alcohol use Restless legs Back pain History of pain when walking Former smoker Anal or rectal pain Colon cancer screening Preventative health care Right groin pain Bilateral carpal tunnel syndrome Scoliosis Seasonal allergies Surgical History H/O Spinal surgery History of vasectomy Social History adopted: No household members: significant other number of children: 1 current occupational status: employed 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 pets and animals: Yes pets and animals: cat(s), dog(s) and fish sexually active: Yes Smoking Status: Former smoker quit date: 08/04/08 Tobacco: How many years used: 10 alcohol intake: current alcohol intake frequency: a few times a week Alcohol type: beer, wine and hard liquor substance use type: marijuana caffeine: Yes (2-3) Type: coffee what type of physical activity do you participate in: weight training and other details: LABOR frequency: 3-4 times per week seatbelt use: always do you feel safe at home: Yes HPI History of Present Illness HPI: Raimundo Schroeder is a 44 year-old male returning for therapy. He reported doing well overall. Raimundo discussed ongoing sadness about past divorce and was tearful. Encouraged verbalization of emotions while providing support. Assisted Raimundo with identifying factors interfering with him having closure with the divorce. Explored recent triggers to sadness about divorce. Worked on ways he could grieve the loss and begin to let it go. He was able to identify the losses he has experienced with the divorce and how the divorce has impacted his thinking about himself. Worked on thought patterns using CBT interventions. No reports of SI. Future-oriented. Exam Mental Status Exam - Psych Appearance casually dressed and well kempt Attitude cooperative, calm, engaged and pleasant Activity/Motor Behavior MSE activity/motor behavior finding no adventitious movements and appropriate eye contact Speech regular rate, regular volume and regular prosody Mood sad Affect full range Thought Process linear, logical, coherent and goal directed Thought Content no delusions, no hallucinations and ruminations (related to past divorce) Suicidal Ideation none Homicidal Ideation none Attention intact Concentration intact Sensorium/Orientation alert and oriented x3 Memory/Cognition intact Insight good Judgement good Assessment Plan Assessment Plan (1) Major depressive disorder with current active episode: Qualifiers: Major depression recurrence: unspecified whether recurrent Major depression episode severity: unspecified Qualified Code(s): F32.9 - Major depressive disorder, single episode, unspecified Plan: therapy using CBT, DBT, and ACT interventions to address thought patterns contributing to depressive symptoms and teach coping skills. Continued psychiatric services to monitor depressive symptoms and medication effectiveness. Pt. to call 911, call suicide prevention hotline, or go to ER if experiencing suicidal ideation with plan and intent and/or feel unable to ensure own safety. (2) SHAYY (generalized anxiety disorder): Plan: therapy using CBT, DBT, and ACT interventions to address thought patterns contributing to anxious symptoms and to teach coping skills. Psychiatric services to monitor anxious symptoms and medication effectiveness. Visit Details Duration of visit (minutes): 60 Duration of counseling (minutes): 60 Total time (minutes): 60 Type of visit: psychotherapy and [id number] Coding [place] [address] PSYTX W PT 60 MINUTES Patient Type Established Diagnoses Major depressive disorder with current active episode, unspecified depression episode severity, unspecified whether recurrent F32.9 Major depression recurrence: unspecified whether recurrent Major depression episode severity: unspecified SHAYY (generalized anxiety disorder) F41.1 Time Spent (min) 60 09/04/24 0626 Date Jolly Reyna [facility] Cosigner Signature: Date _ (more content not included)... Normal [facility] MR/BMSon 09-03-2024 MR/BMS. [facility] [address] [place] [address], [address] [place] [id number] OFFICE VISIT Date of Service: 09/03/24 MR#: [id number] Acct: [id number] Name: RAIMUNDO SCHROEDER Rep #: [id number] : 1980 Provider: MASHA sim Age/Sex: 44/M Location: [place].BP Status: Signed Intake Vital Signs 07/09/24 08:03 09/03/24 09:57 Height 6 ft 6 ft Weight: 204 lb BMI 27.6 BP 128/81 H Blood Pressure Location Lt brachial Position Sitting Respiration 16 Pulse 64 Pulse Source Monitor BP Intake Visit Reasons: 8wfu Accompanied by: Self Allergies poison danielle extract Allergy (Severe, Verified 09/03/24 10:10) Rash Medications ???Medication ???Instructions ???Recorded ???Confirmed ???Type ibuprofen 200 mg tablet (Advil) 400 mg PO Q8H PRN pain 07/13/24 History sildenafil 25 mg tablet (Viagra) 25 mg PO QDAY PRN sexual activity 08/26/24 09/03/24 Rx #30 tabs escitalopram oxalate 10 mg tablet 10 mg PO QDAY #30 tabs 09/03/24 0 09/03/24 Rx PFSH Medical History Loss of hearing Depression Anxiety Marijuana use Alcohol use Restless legs Back pain History of pain when walking Former smoker Anal or rectal pain Colon cancer screening Preventative health care Right groin pain Bilateral carpal tunnel syndrome Scoliosis Seasonal allergies Surgical History H/O Spinal surgery History of vasectomy Social History adopted: No household members: significant other number of children: 1 current occupational status: employed 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 pets and animals: Yes pets and animals: cat(s), dog(s) and fish sexually active: Yes Smoking Status: Former smoker quit date: 08/04/08 Tobacco: How many years used: 10 alcohol intake: current alcohol intake frequency: a few times a week Alcohol type: beer, wine and hard liquor substance use type: marijuana caffeine: Yes (2-3) Type: coffee what type of physical activity do you participate in: weight training and other details: LABOR frequency: 3-4 times per week seatbelt use: always do you feel safe at home: Yes HPI History of Present Illness History provided by: patient HPI: Raimundo Schroeder is a 44 year old male patient presenting today for a follow up evaluation. Has been seeing Jolly and feels this has been beneficial. Has been taking the sertraline and feels he is constantly nauseous from the medication. Has not noticed any benefit in terms of mood with this medication. Has been feelings depressed less than half the time. Denies SI/HI. Has been still struggling with anxiety regularly. Does not feel the anxiety he experiences is unwarranted. Has not been having panic attacks since last appointment. Over the last week has been struggling to fall asleep and stay asleep. 5-6 hours on most night. Does not feel well rested. Appetite has been fine. Denies any changes in weight or appetite. Does feel life stressors have decreased since last appointment. Does feel things do not feel immediately bad. Previous similar episode: Yes Age of first onset of symptoms: 31-40 years Review of Systems Constitutional Reports: fatigue and change in sleep pattern Eyes Reports: floaters Ears, Nose, Mouth, Throat Reports: neck pain and tinnitus Cardiovascular Denies: chest pain, palpitations or orthopnea Respiratory Denies: wheezing Gastrointestinal Reports: change in bowel habits Genitourinary Reports: urinary urgency and change in libido (new) Musculoskeletal Reports: back pain, neck pain, joint pain and muscle cramps (at night) Integumentary/Breast Denies: rash, pruritus or erythema Neurological Reports: headache(s) Psychiatric Reports: anxiety, change in sleep pattern, hopelessness, loss of interest, paranoia, memory loss and suicidal ideation (passive) Endocrine Reports: fatigue and change in libido (new) Allergic/Immunologic Denies: wheezing Exam Mental Status Exam - Psych Appearance casually dressed, adequately groomed and no apparent distress Attitude cooperative and calm Activity/Motor Behavior MSE activity/motor behavior finding no adventitious movements and appropriate eye contact Speech regular rate, regular volume and regular prosody Mood euythmic Affect full range Thought Process linear, logical and coherent Thought Content no delusions and no hallucinations Suicidal Ideation none Homicidal Ideation none Attention intact Concentration intact Sensorium/Orientation awake, alert and oriented x3 Memory/Cognition impaired (per patient self report ) Insight good Judgement good Exam Constitutional Common normals: no acute distress, average body habitus and patient (more content not included)... Normal [facility] FOOT LTon 09-01-2024 US FOOT LT * * *Final Report* * * DATE OF EXAM: Sep 01 2024 3:53PM [facility] 1141 - US FOOT LT / PROCEDURE REASON: Neuroma * * * * Physician Interpretation * * * * MSK_US LEFT SECOND INTERMETATARSAL ULTRASOUND: CLINICAL INFORMATION:Chronic pain on the bottom of the filter on the second digit. TECHNIQUE: Brady-scale real-time ultrasound of the plantar and dorsal intermetatarsal space and adjacent joint spaces with dynamic imaging and power Doppler was performed. Images were archived for documentation. COMPARISON: X-ray 06/15/2024. FINDINGS: SECOND INTERMETATARSAL SPACE: Mild thickening of the plantar nerve without Araujo's neuroma. Mild intermetatarsal bursitis. SECOND MTP JOINT: Joint space appears maintained. Full thickness tear of the lateral plantar plate. Degenerative changes of the medial plantar plate. THIRD MTP JOINT: Joint space appears maintained. No acute plantar plate tear.Plantar plates have an intact appearance. INTRINSIC MUSCLES: The adjacent intrinsic muscles show no gross abnormality. FLEXOR TENDONS: Flexor tendons at the MTP joints appear intact. IMPRESSION: MILD SECOND INTERMETATARSAL PLANTAR NERVE THICKENING WITHOUT ARAUJO'S NEUROMA. MILD INTERMETATARSAL BURSITIS. SECOND MTP LATERAL PLANTAR PLATE TEAR, DETAILED. Food Service Steward: [facility] Transcribe Date/Time: Sep 01 2024 3:59P Dictated by : STEFFANY SMITH MD This examination was interpreted and the report reviewed and electronically signed by: STEFFANY SMITH MD on Sep 01 2024 5:27PM EST [id number] Normal [facility] Lower extremity - lefton 09-01-2024 IMPRESSION: MILD SECOND INTERMETATARSAL PLANTAR NERVE THICKENING WITHOUT ARAUJO'S NEUROMA. MILD INTERMETATARSAL BURSITIS. SECOND MTP LATERAL PLANTAR PLATE TEAR, DETAILED. Food Service Steward: PSCB Transcribe Date/Time: Sep 01 2024 3:59P Dictated by : STEFFANY SMITH MD This examination was interpreted and the report reviewed and electronically signed by: STEFFANY SMITH MD on Sep 01 2024 5:27PM EST DIVISION OF RADIOLOGY * * *Final Report* * * DATE OF EXAM: Sep 01 2024 3:53PM [facility] 1141 - US FOOT LT / PROCEDURE REASON: Neuroma * * * * Physician Interpretation * * * * MSK_US LEFT SECOND INTERMETATARSAL ULTRASOUND: CLINICAL INFORMATION:Chronic pain on the bottom of the filter on the second digit. TECHNIQUE: Brady-scale real-time ultrasound of the plantar and dorsal intermetatarsal space and adjacent joint spaces with dynamic imaging and power Doppler was performed. Images were archived for documentation. COMPARISON: X-ray 06/15/2024. FINDINGS: SECOND INTERMETATARSAL SPACE: Mild thickening of the plantar nerve without Araujo's neuroma. Mild intermetatarsal bursitis. SECOND MTP JOINT: Joint space appears maintained. Full thickness tear of the lateral plantar plate. Degenerative changes of the medial plantar plate. THIRD MTP JOINT: Joint space appears maintained. No acute plantar plate tear.Plantar plates have an intact appearance. INTRINSIC MUSCLES: The adjacent intrinsic muscles show no gross abnormality. FLEXOR TENDONS: Flexor tendons at the MTP joints appear intact. DIVISION OF RADIOLOGY Provider, [facility] - 09/01/2024 * * *Final Report* * * DATE OF EXAM: Sep 01 2024 3:53PM [facility] 1141 - US FOOT LT / PROCEDURE REASON: Neuroma * * * * Physician Interpretation * * * * MSK_US LEFT SECOND INTERMETATARSAL ULTRASOUND: CLINICAL INFORMATION:Chronic pain on the bottom of the filter on the second digit. TECHNIQUE: Brady-scale real-time ultrasound of the plantar and dorsal intermetatarsal space and adjacent joint spaces with dynamic imaging and power Doppler was performed. Images were archived for documentation. COMPARISON: X-ray 06/15/2024. FINDINGS: SECOND INTERMETATARSAL SPACE: Mild thickening of the plantar nerve without Araujo's neuroma. Mild intermetatarsal bursitis. SECOND MTP JOINT: Joint space appears maintained. Full thickness tear of the lateral plantar plate. Degenerative changes of the medial plantar plate. THIRD MTP JOINT: Joint space appears maintained. No acute plantar plate tear.Plantar plates have an intact appearance. INTRINSIC MUSCLES: The adjacent intrinsic muscles show no gross abnormality. FLEXOR TENDONS: Flexor tendons at the MTP joints appear intact. IMPRESSION IMPRESSION: MILD SECOND INTERMETATARSAL PLANTAR NERVE THICKENING WITHOUT ARAUJO'S NEUROMA. MILD INTERMETATARSAL BURSITIS. SECOND MTP LATERAL PLANTAR PLATE TEAR, DETAILED. Food Service Steward: DOROTEO Transcribe Date/Time: Sep 01 2024 3:59P Dictated by : STEFFANY SMITH MD This examination was interpreted and the report reviewed and electronically signed by: STEFFANY SMITH MD on Sep 01 2024 5:27PM [facility] Radiology Study observation (narrative) [facility] US Lower extremity - leftOrd ered By: [facility] Provider on 09-01-2024 [facility] CNOVon 08-26-2024 CNOV Office Visit (WSTR ) RAIMUNDO SCHROEDER ([id number]) 1980 M Date Time Provider Department 08/26/24 6:30 PM [facility] During your visit today, we recorded the following information about you: Temperature Pulse Respiration Blood pressure 97.4 degrees 64/minute 18/minute 136/90 Weight 95.8 kg Rocco Rose PA 08/27/2024 7:08 AM Signed This note was created using Runariter. Subjective Raimundo Schroeder is a 44 year old male. HPI 44-year-old male presents for left knee puncture wound. Patient states that today he was carrying on a cabinet and went to lean the piece of the cabinet on his knee and a nail punctured the top of his left knee. It bled a small amount. He states that the nail was intact when he pulled it out. He is unsure how deep it went. He states his last tetanus was in 2016, so came in for tetanus booster. Patient denies any numbness or tingling in the leg. Still able to ambulate. No purulent drainage from the area. He has not on any blood thinners. No history of diabetes. No other complaint. PAST MEDICAL HISTORY Diagnosis Date Genital herpes 2016 [facility] Hyperlipidemia resolved with diet and weight loss Rosacea Scoliosis s/p macey placement age 14 Seasonal allergies Shoulder dislocation 2018 left PAST SURGICAL HISTORY Procedure Laterality Date SCOLIOSIS surgery at age 14 VASECTOMY UNI/BI SPX W/POSTOP SEMEN EXAMS 2018 ALLERGIES Poison Danielle Extract MEDICATIONS ammonium lactate (LAC-HYDRIN) 12 % lotion cephALEXin (KEFLEX) 500 mg capsule Take 1 capsule by mouth four times daily for 5 days. mupirocin (BACTROBAN) 2 % ointment Apply to affected area three times a day for 7 days. sertraline (ZOLOFT) 50 mg tablet Take 50 mg by mouth once daily. sildenafil (VIAGRA) 25 mg tablet Take 25 mg by mouth once daily as needed. oxyCODONE IR (ROXICODONE) 5 mg immediate release tablet Take 5 mg by mouth every 6 hours as needed. diphenhydrAMINE (BENADRYL) 25 mg tablet Take 25 mg by mouth every 6 hours as needed. ibuprofen (ADVIL) 200 mg tablet Take 200 mg by mouth every 6 hours as needed for pain. FAMILY HISTORY Problem Relation Age of Onset Hyperlipidemia Father other (brain tumor) Paternal Uncle Social History Tobacco Use Smoking status: Former Current packs/day: 0.00 Average packs/day: 1 pack/day for 10.0 years (10.0 ttl pk-yrs) Types: Cigarettes Start date: 03/17/1993 Quit date: 03/17/2003 Years since quittin.4 Smokeless tobacco: Never Vaping Use Vaping status: Never Used Substance Use Topics Alcohol use: Yes Alcohol/week: 18.2 standard drinks of alcohol Types: 14 Mixed Drinks per week Drug use: Yes Types: Marijuana Review of Systems Constitutional: Negative for chills and fever. HENT: Negative for congestion and sore throat. Respiratory: Negative for cough and shortness of breath. Gastrointestinal: Negative for diarrhea and vomiting. Skin: Positive for wound. Objective BP 136/90 Pulse 64 Temp 36.3 ?C (97.4 ?F) Resp 18 Wt 95.8 kg (211 lb 3.2 oz) SpO2 98% BMI 29.05 kg/m? Physical Exam Vitals and nursing note reviewed. Constitutional: General: He is not in acute distress. Appearance: Normal appearance. He is not toxic-appearing. Musculoskeletal: Left knee: Laceration (Puncture wound just superior to left patella.) present. No bony tenderness. Normal range of motion. No tenderness. Legs: Comments: Puncture wound just superior to left patella. No swelling. No deformity. Normal flexion extension left knee. No erythema, warmth or knee effusion present. No foreign body seen. Skin: General: Skin is warm and dry. Neurological: Mental Status: He is alert. Assessment and Plan ASSESSMENT/PLAN: 1. Puncture wound - ICD9: 879.8, ICD10: T14.8XXA (primary diagnosis) -Puncture wound of left knee. Patient states nail was intact that punctured him. No foreign body seen on exam. -Wound cleansed, bacitracin ointment and bandage applied. -Discussed with patient prophylactic antibiotics since it is a puncture wound. Patient prefers not to be on antibiotic. I did send in Rx for Keflex. If the area starts to red and at all, patient advised to start this. He is agreeable. -If any purulent drainage, lymphatic streaking, needs to be seen in ER. -Rx for mupirocin ointment. Did advise to start this today. Keep the area clean and dry 2. Need for tetanus, diphtheria, and acellular pertussis (Tdap) vaccine - ICD9: V06.1, ICD10: Z23 -Last tetanus 2016 -Adacel vaccination given Diagnosis and treatment plan were discussed and questions were answered to the patient's satisfaction. Pt acknowledged understanding of concepts and follow up plan. Specific signs and symptoms that would indicate the need for higher level of care were discussed in detail warranting prompt ER evaluation. TISH Garcia All (more content not included)... Normal [facility] MR/BMS.BPon 08-20-2024 MR/BMS.BP [facility] [address] [place] [address], [address] [place] [id number] OFFICE VISIT Date of Service: 08/20/24 MR#: [id number] Acct: [id number] Name: RAIMUNDO SCHROEDER Rep #: [id number] : 1980 [facility] Age/Sex: 44/M Location: [facility] Status: Signed Intake Vital Signs 07/06/24 11:04 08/13/24 12:44 08/20/24 13:42 Height 6 ft 6 ft 6 ft BP Intake Visit Reasons: follow up Allergies poison danielle extract Allergy (Severe, Verified 08/07/24 09:31) Rash [facility] Medical History Loss of hearing Depression Anxiety Marijuana use Alcohol use Restless legs Back pain History of pain when walking Former smoker Anal or rectal pain Colon cancer screening Preventative health care Right groin pain Bilateral carpal tunnel syndrome Scoliosis Seasonal allergies Surgical History H/O Spinal surgery History of vasectomy Social History adopted: No household members: significant other number of children: 1 current occupational status: employed 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 pets and animals: Yes pets and animals: cat(s), dog(s) and fish sexually active: Yes Smoking Status: Former smoker quit date: 08/04/08 Tobacco: How many years used: 10 alcohol intake: current alcohol intake frequency: a few times a week Alcohol type: beer, wine and hard liquor substance use type: marijuana caffeine: Yes (2-3) Type: coffee what type of physical activity do you participate in: weight training and other details: LABOR frequency: 3-4 times per week seatbelt use: always do you feel safe at home: Yes HPI History of Present Illness HPI: Raimundo is a 44 year-old male returning for therapy. He identified continued reduction of symptoms stating his depression was a 3 on a scale of 1 to 10 with 10 being worst. Raimundo was worked on increasing pleasant activities through small goals. He has paired lifting weights and walking the dog by lifting weights after walking the dog several times during the week. Worked on stressors in his relationship with significant other related to her son. Encouraged verbalization of emotions while providing support. Explored triggering situations and emotions triggered. Raimundo has felt it has been unproductive to address his concerns with his significant other. Explored option to address in couples counseling they are attending. He identified that recent interactions between him and his significant other have been positive. Worked on DBT skill Radical Acceptance as well as prioritizing concerns and avoiding use of criticism in communication. Provided psychoeducation on effective communication. No SI. Future-oriented. Exam Mental Status Exam - Psych Appearance casually dressed and adequately groomed Attitude cooperative, calm, engaged and pleasant Activity/Motor Behavior appropriate eye contact (appeared to fidget when discussing topics triggering painful emotions) and fidgeting Speech regular rate, regular volume and regular prosody Mood OK Affect full range Thought Process logical, coherent and goal directed Thought Content no delusions, no hallucinations and ruminations (Related to stepson's behaviors.) Suicidal Ideation none Homicidal Ideation none Attention intact Concentration intact Sensorium/Orientation alert and oriented x3 Memory/Cognition intact Insight good Judgement good Assessment Plan Assessment Plan (1) Major depressive disorder with current active episode: Qualifiers: Major depression recurrence: unspecified whether recurrent Major depression episode severity: unspecified Qualified Code(s): F32.9 - Major depressive disorder, single episode, unspecified Plan: therapy using CBT, DBT, and ACT interventions to address thought patterns contributing to depressive symptoms and teach coping skills. Continued psychiatric services to monitor depressive symptoms and medication effectiveness. Pt. to call 911, call suicide prevention hotline, or go to ER if experiencing suicidal ideation with plan and intent and/or feel unable to ensure own safety. (2) SHAYY (generalized anxiety disorder): Plan: therapy using CBT, DBT, and ACT interventions to address thought patterns contributing to anxious symptoms and to teach coping skills. Psychiatric services to monitor anxious symptoms and medication effectiveness. Plan TREATMENT PLAN Goal 1 - Reduce depressive symptoms by 30% AEB pt.'s self-report. Objective 1 - Identify and replace thoughts and beliefs that support depression. Intervention 1 - Using CBT will help pt. learn the connection among thoughts, feelings, and behaviors. Intervention 2 - Facilitate and reinforce pt.'s shift from biased depressiv (more content not included)... Normal [facility] MR/BMS.BPon 08-13-2024 MR/BMS.BP [facility] [address] [place] [address], [address] [place] [address] OFFICE VISIT Date of Service: 08/13/24 MR#: [id number] Acct: [id number] Name: RAIMUNDO SCHROEDER Rep #: [id number] : 1980 Provider: YOEL luciano Age/Sex: 44/M Location: [facility] Status: Signed Intake Vital Signs 07/06/24 11:04 08/06/24 11:52 08/13/24 12:44 Height 6 ft 6 ft 6 ft BP Intake Visit Reasons: follow up Allergies poison danielle extract Allergy (Severe, Verified 08/07/24 09:31) Rash [facility] Medical History Loss of hearing Depression Anxiety Marijuana use Alcohol use Restless legs Back pain History of pain when walking Former smoker Anal or rectal pain Colon cancer screening Preventative health care Right groin pain Bilateral carpal tunnel syndrome Scoliosis Seasonal allergies Surgical History H/O Spinal surgery History of vasectomy Social History adopted: No household members: significant other number of children: 1 current occupational status: employed 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 pets and animals: Yes pets and animals: cat(s), dog(s) and fish sexually active: Yes Smoking Status: Former smoker quit date: 08/04/08 Tobacco: How many years used: 10 alcohol intake: current alcohol intake frequency: a few times a week Alcohol type: beer, wine and hard liquor substance use type: marijuana caffeine: Yes (2-3) Type: coffee what type of physical activity do you participate in: weight training and other details: LABOR frequency: 3-4 times per week seatbelt use: always do you feel safe at home: Yes HPI History of Present Illness HPI: Pt. is a 44 year-old male returning for therapy. He is continuing to recover from wrist surgery and is frustrated that he cannot do the same physical activities he normally would do. Pt. reported fewer depressive symptoms and presented with a broader affect than previous sessions. He discussed previous and current work and struggles. Pt. has struggled with a flexible work schedule as he will not take time for pleasant activities but participated in pleasant activities when he worked a set shift. He identified many struggles with aging. Encouraged verbalization of emotions while providing support. Worked on implementing pleasurable activities and scheduling time for these activities. Provided psychoeducation on healthy goal setting including setting achievable goals to build momentum and confidence. No SI. Future-oriented. Developmental History Developmental History: RAIMUNDO is the [ ORDER]. The pt was born and raised in [ ]. Education level completed [ ]. Pt describes his/her childhood as [ ]. Exam Mental Status Exam - Psych Appearance casually dressed and well kempt Attitude cooperative, calm, engaged and pleasant Activity/Motor Behavior MSE activity/motor behavior finding no adventitious movements and appropriate eye contact Speech regular rate, regular volume and regular prosody Mood depressed Affect full range Thought Process linear, logical, coherent and goal directed Thought Content no delusions and no hallucinations Suicidal Ideation none Homicidal Ideation none Attention intact Concentration intact Sensorium/Orientation alert and oriented x3 Memory/Cognition intact Insight good Judgement good Assessment Plan Assessment Plan (1) Major depressive disorder with current active episode: Qualifiers: Major depression recurrence: unspecified whether recurrent Major depression episode severity: unspecified Qualified Code(s): F32.9 - Major depressive disorder, single episode, unspecified Plan: therapy using CBT, DBT, and ACT interventions to address thought patterns contributing to depressive symptoms and teach coping skills. Continued psychiatric services to monitor depressive symptoms and medication effectiveness. Pt. to call 911, call suicide prevention hotline, or go to ER if experiencing suicidal ideation with plan and intent and/or feel unable to ensure own safety. (2) SHAYY (generalized anxiety disorder): Plan: therapy using CBT, DBT, and ACT interventions to address thought patterns contributing to anxious symptoms and to teach coping skills. Psychiatric services to monitor anxious symptoms and medication effectiveness. Plan TREATMENT PLAN Goal 1 - Reduce depressive symptoms by 30% AEB pt.'s self-report. Objective 1 - Identify and replace thoughts and beliefs that support depression. Intervention 1 - Using CBT will help pt. learn the connection among thoughts, feelings, and behaviors. Intervention 2 - Facilitate and reinforce pt.'s shift from biased depressive self-talk and beliefs to reality-based cognitive messages (more content not included)... Normal [facility] Orthopedic Visit Reporton Orthopedic Visit Report [facility] [address] [place] [address] OFFICE VISIT Date of Service: 08/07/24 MR#: [id number] Acct: [id number] Name: RAIMUNDO SCHROEDER Terrance Rep #: [id number] : 1980 Provider: Dr. Abdiel maciel DO Age/Sex: 44/M Location: [facility] Status: Signed Intake Vital Signs 02/05/24 12:26 08/06/24 11:52 Height 6 ft 6 ft Intake Visit Reasons: right wrist Chief Complaint: post op right wrist Is patient in pain?: Yes (right wrist ) Pain scale (1-10): 2 Allergies poison danielle extract Allergy (Severe, Verified 08/07/24 09:31) Rash Medications ???Medication ???Instructions ???Recorded ???Confirmed ???Type sertraline 50 mg tablet 50 mg PO QDAY #30 tabs 07/09/24 08/07/24 Rx ibuprofen 200 mg tablet (Advil) 400 mg PO Q8H PRN pain 07/13/24 08/07/24 History sildenafil 25 mg tablet (Viagra) 25 mg PO QDAY PRN sexual activity 07/14/24 08/07/24 Rx #10 tabs PFSH Medical History Loss of hearing Depression Anxiety Marijuana use Alcohol use Restless legs Back pain History of pain when walking Former smoker Anal or rectal pain Colon cancer screening Preventative health care Right groin pain Bilateral carpal tunnel syndrome Scoliosis Seasonal allergies Surgical History H/O Spinal surgery History of vasectomy Social History adopted: No household members: significant other number of children: 1 current occupational status: employed 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 pets and animals: Yes pets and animals: cat(s), dog(s) and fish sexually active: Yes Smoking Status: Former smoker quit date: 08/04/08 Tobacco: How many years used: 10 alcohol intake: current alcohol intake frequency: a few times a week Alcohol type: beer, wine and hard liquor substance use type: marijuana caffeine: Yes (2-3) Type: coffee what type of physical activity do you participate in: weight training and other details: LABOR frequency: 3-4 times per week seatbelt use: always do you feel safe at home: Yes HPI right wrist Chief Complaint: post op right wrist Details: This documentation accurately reflects the service provided and the decisions made by me, Dr. Abdiel Douglas, DO 08/07/24 0759. Part of today???s visit was documented by [ ], acting as scribe. RAIMUNDO SCHROEDER is a 44 year old M here today for post op right carpal tunnel release. DOS 07-21-24. He c/o a mild, dull achy pain with some numbness. He rates his pain 2/10. Incision site dry and intact., sutures removed. Ortho Exam General General: Yes no acute distress and Yes well groomed Neurologic: Yes alert and Yes oriented x3 Psychologic: Yes reasonable and appropriate Right Wrist/Hand Skin/Wound: Yes CDI, Yes suture/edu removed, No Swelling and No Ecchymosis WRIST: Incision well-approximated no signs of infection he has full finger flexion extension and near full wrist extension full wrist flexion. Left Wrist/Hand Skin/Wound: No Swelling and No Ecchymosis Right Foot/Ankle Skin/Wound: Yes suture/edu removed Supplemental Info 07/21/2024: Right carpal tunnel release open: Dr. 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 His range of motion is full he does not require any physical therapy. I explained to him again what the procedure consisted of taking the pressure off of the nerve and that in some cases symptoms do not improve but the vast majority of cases do improve over a variable period of time. I would recommend he keeps a weight restriction to 5 pounds over the next week and then can gradually progress he should avoid any high contact impact such as chopping wood for at least 2 weeks and let pain be his guide at that point explained him soreness is not uncommon for several months after this procedure. Follow up in an as needed basis or sooner if pain, swelling, numbness or associated symptoms, or concerns develop. All questions answered. Patient in agreement of plan. 08/07/24 1008 Date [facility]ctor Douglas [facility]: Date (if applicable) CC: Normal [facility] MR/BMS.BPon 08-06-2024 MR/BMS.BP [facility] [address], [address] [place] [id number] OFFICE VISIT Date of Service: 08/06/24 MR#: [id number] Acct: [id number] Name: RAIMUNDO SCHROEDER Rep #: [id number] : 1980 Provider: [facility] Jolly luciano Age/Sex: 44/M Location: [facility] Status: Signed Intake Vital Signs 07/06/24 11:04 07/24/24 14:53 08/06/24 11:52 Height 6 ft 6 ft 6 ft BP Intake Visit Reasons: follow up Allergies poison danielle extract Allergy (Severe, Verified 07/21/24 10:02) Rash PFSH Medical History Loss of hearing Depression Anxiety Marijuana use Alcohol use Restless legs Back pain History of pain when walking Former smoker Anal or rectal pain Colon cancer screening Preventative health care Right groin pain Bilateral carpal tunnel syndrome Scoliosis Seasonal allergies Surgical History H/O Spinal surgery History of vasectomy Social History adopted: No household members: significant other number of children: 1 current occupational status: employed 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 pets and animals: Yes pets and animals: cat(s), dog(s) and fish sexually active: Yes Smoking Status: Former smoker quit date: 08/04/08 Tobacco: How many years used: 10 alcohol intake: current alcohol intake frequency: a few times a week Alcohol type: beer, wine and hard liquor substance use type: marijuana caffeine: Yes (2-3) Type: coffee what type of physical activity do you participate in: weight training and other details: LABOR frequency: 3-4 times per week seatbelt use: always do you feel safe at home: Yes HPI History of Present Illness HPI: Pt. is a 44 year-old returning for therapy. He reported having been very busy over the holidays with family. As a result, there has been little conflict between him and his significant other and fewer depressive symptoms. Pt.'s wrist is healing from surgery resulting in him feeling more productive. He discussed daughter going to [place] for several months and concerns about past and present romantic relationships. Pt. and significant other have not had a couples counseling appointment in the last month. No reports of SI. Future-oriented. Therapeutic interventions - Encouraged verbalization of emotions while providing support. Normalized emotions. Examined grief related to past divorce. Worked on relationship patterns and worries using CBT interventions. Worked on value-based action and communication skills. Discussed bibliotherapy to gain communication skills helpful for romantic relationships (Jb). Exam Mental Status Exam - Psych Appearance casually dressed and well kempt Attitude cooperative and engaged Activity/Motor Behavior MSE activity/motor behavior finding no adventitious movements and appropriate eye contact Speech regular rate, regular volume and regular prosody Mood anxious Affect constricted and tearful Thought Process linear, logical and coherent Thought Content no delusions and no hallucinations Suicidal Ideation none Homicidal Ideation none Attention intact Concentration intact Sensorium/Orientation alert and oriented x3 Memory/Cognition intact Insight fair Judgement good Assessment Plan Assessment Plan (1) Major depressive disorder with current active episode: Qualifiers: Major depression recurrence: unspecified whether recurrent Major depression episode severity: unspecified Qualified Code(s): F32.9 - Major depressive disorder, single episode, unspecified Plan: therapy using CBT, DBT, and ACT interventions to address thought patterns contributing to depressive symptoms and teach coping skills. Continued psychiatric services to monitor depressive symptoms and medication effectiveness. Pt. to call 911, call suicide prevention hotline, or go to ER if experiencing suicidal ideation with plan and intent and/or feel unable to ensure own safety. (2) SHAYY (generalized anxiety disorder): Plan: therapy using CBT, DBT, and ACT interventions to address thought patterns contributing to anxious symptoms and to teach coping skills. Psychiatric services to monitor anxious symptoms and medication effectiveness. Plan TREATMENT PLAN Goal 1 - Reduce depressive symptoms by 30% AEB pt.'s self-report. Objective 1 - Identify and replace thoughts and beliefs that support depression. Intervention 1 - Using CBT will help pt. learn the connection among thoughts, feelings, and behaviors. Intervention 2 - Facilitate and reinforce pt.'s shift from biased depressive self-talk and beliefs to reality-based cognitive messages that increase positive outlook and adaptive actions. Visit Details Duration of visit (minutes): (more content not included)... Normal [facility] CNOVon 08-04-2024 CNOV Office Visit (PODIWS ) RAIMUNDO SCHROEDER ([id number]) 1980 M Date Time Provider Department 08/04/24 1:30 PM VERONICA PAGAN PODIWS During your visit today, we recorded the following information about you: Veronica Pagan 08/09/2024 8:09 AM Signed FOLLOW UP PODIATRIC OFFICE VISIT Chief Complaint: This 44 year old who presents for follow up:left foot pain Patient presents to clinic for follow-up left foot pain. Continues to have on/off to the left forefoot. Pain is worse with activity. Patient has tried insoles but the insoles did not make a difference. If anything, the insoles made his pain worse He is here to discuss options. PAIN EVALUATION 08/03/2024 0839 Pain Level: 5 Pain Location: Foot-Left Description: Burning;Dull;Sharp;Th robbing Duration Units: Hours Frequency: Intermittent No results found for: HBA1C PCP: Robina Blum MD PAST MEDICAL HISTORY Diagnosis Date Genital herpes 2016 [facility] Hyperlipidemia resolved with diet and weight loss Rosacea Scoliosis s/p macey placement age 14 Seasonal allergies Shoulder dislocation 2018 left Current Outpatient Medications Medication Sig sertraline (ZOLOFT) 50 mg tablet Take 50 mg by mouth once daily. sildenafil (VIAGRA) 25 mg tablet Take 25 mg by mouth once daily as needed. oxyCODONE IR (ROXICODONE) 5 mg immediate release tablet Take 5 mg by mouth every 6 hours as needed. diphenhydrAMINE (BENADRYL) 25 mg tablet Take 25 mg by mouth every 6 hours as needed. ibuprofen (ADVIL) 200 mg tablet Take 200 mg by mouth every 6 hours as needed for pain. No current facility-administered medications for this visit. ALLERGIES No Known Allergies PAST SURGICAL HISTORY Procedure Laterality Date SCOLIOSIS surgery at age 14 VASECTOMY UNI/BI SPX W/POSTOP SEMEN EXAMS 2018 Physical Exam: OBJECTIVE: Constitutional: Pt is a well developed 44 year old male who is alert, oriented, cooperative and in no apparent distress. Eyes: Following during examination. No redness or drainage. Respiratory: RR normal and nonlabored. Even breathing. No evidence of distress. Psychology: Patient is engaged during conversation. Normal affect and mood. Does not appear depressed or anxious. NVSI unchanged from previous visit. Dermatological: Nails 1-5 b/l are normal. Webspaces clean and dry 1-4 b/l. Skin appears well hydrated and supple. good color, texture, turgor. No open lesions present. No callosities present. Musculoskeletal/Ortho paedic: Patient has pain to palpation of left forefoot ASSESSMENT: (D36.10) Neuroma (primary encounter diagnosis) PLAN: Discussed ongoing pain in left foot. Has tried inserts but continues to have pain. Suspect component of neuroma. Discuss other etiologies not limited to bursitis vs capsulitis vs plantar plate attenuation. Will order ultrasound. Will discuss results thereafter. Veronica Pagan DPM Allergies As of Date: 08/04/2024 (No Known Allergies) Date Reviewed: 08/04/2024 Reviewed by: Oneida Kelly MA - Fully Assessed Reason for Visit: Established Patient [175] Follow Up [171] Primary Visit Diagnosis:Neuroma [D36.10] Order(s): FOOT LEFT [[id number]] Order #: [id number] FUTURE Prescriptions as of 08/09/2024 - sertraline (ZOLOFT) 50 mg tablet Take 50 mg by mouth once daily. - sildenafil (VIAGRA) 25 mg tablet Take 25 mg by mouth once daily as needed. - oxyCODONE IR (ROXICODONE) 5 mg immediate release tablet Take 5 mg by mouth every 6 hours as needed. - diphenhydrAMINE (BENADRYL) 25 mg tablet Take 25 mg by mouth every 6 hours as needed. - ibuprofen (ADVIL) 200 mg tablet Take 200 mg by mouth every 6 hours as needed for pain. Problem List As Of Date 08/04/2024 Noted Resolved Seasonal allergic rhinitis [J30.2] 10/29/2016 Herpes genitalis in men [A60.02] 10/29/2016 Rosacea [L71.9] Encounter Status:Closed by VERONICA PAGAN DPM on 08/09/24 [facility] 08-04-2024 CNPN Telephone (RULTTB) RAIUMNDO SCHROEDER ([id number]) 1980 M Date Time Provider Department 08/04/24 JASON PAGE RULTTB During your visit today, we recorded the following information about you: Jason Page PCNA 08/04/2024 2:21 PM Signed Visit Type: ANY MSK Visit Length: 45, 50 OR 60 MINUTES Order Name/Protocol: US FOOT LT; [facility] Preferred Provider: N/A Comment: Please ask if the patient has ever had any prior surgery to their LT second toe. If so, upgrade the visit type to an MSK1 and notate the surgical hx in the Appointment Note. Location: Depending on the surgical hx, this patient can have this exam performed at any of our three locations. Slot held: N/A Bryan Lind 08/04/2024 2:33 PM Signed PT scheduled for MSK US on 09/01/24 at 3:45 PM at [facility] Allergies As of Date: 08/04/2024 (No Known Allergies) Date Reviewed: 08/04/2024 Reviewed by: Oneida Kelly MA - Fully Assessed Reason for Visit: Appointment [186] Prescriptions as of 08/04/2024 - sertraline (ZOLOFT) 50 mg tablet Take 50 mg by mouth once daily. - sildenafil (VIAGRA) 25 mg tablet Take 25 mg by mouth once daily as needed. - oxyCODONE IR (ROXICODONE) 5 mg immediate release tablet Take 5 mg by mouth every 6 hours as needed. - diphenhydrAMINE (BENADRYL) 25 mg tablet Take 25 mg by mouth every 6 hours as needed. - ibuprofen (ADVIL) 200 mg tablet Take 200 mg by mouth every 6 hours as needed for pain. Problem List As Of Date 08/04/2024 Noted Resolved Seasonal allergic rhinitis [J30.2] 10/29/2016 Herpes genitalis in men [A60.02] 10/29/2016 Rosacea [L71.9] Encounter Status:Closed by BRYAN LIND on 08/04/[address] [facility] MR/BMS.BPon 07-24-2024 MR/BMS.BP [address], [place] [address] OFFICE VISIT Date of Service: 07/24/24 MR#: [id number] Acct: [id number] Name: RAIMUNDO SCHROEDER Rep #: [id number] : 1980 [facility] Age/Sex: 44/M Location: [place].BP Status: Signed Intake Vital Signs 07/06/24 11:04 07/21/24 10:08 07/24/24 14:53 Height 6 ft 6 ft 6 ft BP Intake Visit Reasons: follow up Allergies poison danielle extract Allergy (Severe, Verified 07/21/24 10:02) [facility] History Loss of hearing Depression Anxiety Marijuana use Alcohol use Restless legs Back pain History of pain when walking Former smoker Anal or rectal pain Colon cancer screening Preventative health care Right groin pain Bilateral carpal tunnel syndrome Scoliosis Seasonal allergies Surgical History H/O Spinal surgery History of vasectomy Social History adopted: No household members: significant other number of children: 1 current occupational status: employed 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 pets and animals: Yes pets and animals: cat(s), dog(s) and fish sexually active: Yes Smoking Status: Former smoker quit date: 08/04/08 Tobacco: How many years used: 10 alcohol intake: current alcohol intake frequency: a few times a week Alcohol type: beer, wine and hard liquor substance use type: marijuana caffeine: Yes (2-3) Type: coffee what type of physical activity do you participate in: weight training and other details: LABOR frequency: 3-4 times per week seatbelt use: always do you feel safe at home: Yes HPI History of Present Illness HPI: Pt. is a 44 year-old male returning for counseling. He had wrist surgery since last session. Pt. reports that his significant other does not seem to recognize physical limitations he currently has as he is recovering from the surgery. He states they had a significant argument that resulted in some SI without plan or intent and feelings of worthlessness as he is not able to complete physical tasks. He has no current. Pt. has implemented mindfulness strategies and enjoyed them when implemented. He also tried to label thoughts as thoughts but struggled with this intervention and found it less effective. Therapeutic Interventions - Encouraged verbalizing of emotions while providing support. Used CBT strategies to address thinking distortion unless I can perform physical tasks I am worthless and therapy is supposed to take away all negative feeling. Explored metaphor that emotions are like weather. He was able to recognize that his recovery from surgery is time limited and stated that his mother and daughter remain protective factors. Worked on recognizing what he can and cannot control and DBT skill radical acceptance. Exam Mental Status Exam - Psych Appearance casually dressed and well kempt Attitude engaged Activity/Motor Behavior MSE activity/motor behavior finding no adventitious movements and appropriate eye contact Speech regular rate, regular volume and regular prosody Mood depressed Affect constricted Thought Process coherent (Numerous thinking distortions used.) Thought Content no delusions, no hallucinations and ruminations Suicidal Ideation other (No current SI. Recent SI without plan or intent.) Homicidal Ideation none Attention intact Concentration intact Sensorium/Orientation alert and oriented x3 Memory/Cognition intact Insight good Judgement good Assessment Plan Assessment Plan (1) Major depressive disorder with current active episode: Qualifiers: Major depression episode severity: unspecified Major depression recurrence: unspecified whether recurrent Qualified Code(s): F32.9 - Major depressive disorder, single episode, unspecified Plan: Will work on recognizing what he can and cannot control, labeling thoughts as thoughts, mindfulness, and implementing alternative thinking discussed during session. Will continue to receive psychiatric services to monitor depressive symptoms and medication effectiveness. (2) SHAYY (generalized anxiety disorder): Plan: Will work on recognizing what he can and cannot control, labeling thoughts as thoughts, mindfulness, and implementing alternative thinking discussed during session. Will continue to receive psychiatric services to monitor anxious symptoms and medication effectiveness. Plan Goal 1 - Reduce depressive symptoms by 30% AEB pt.'s self-report. Objective 1 - Identify and replace thoughts and beliefs that support depression. Intervention 1 - Using CBT will help pt. learn the connection among thoughts, feelings, and behaviors. Intervention 2 - Facilitate and reinforc (more content not included)... Normal [facility] Discharge Instructionon - Discharge Instruction [facility] Medical Records Department [address] [place] [address] Instructions for Home/Discharge Instructions 07/21/24 1157 MR#: [id number] Acct: [id number] Name: RAIMUNDO SCHROEDER Rep #: [id number] : 1980 44 From: Abdiel Douglas DO PCP: Dr. Nic Samuels MD Status:REG SDC Discharge Instructions Diet Discharge Diet: No restrictions Dressing / Incision Call your doctor if you observe: Shortness of breath and Chest pain Additional Dressing/Incision Instructions:: Ice and elevate operative extremity next 72 hours. Keep dressing on clean and dry for 48 hours then may remove and allow warm soapy water to rinse over incision but do not submerge until sutures are out. Then apply bandaid over incision and change daily. encourage finger range of motion. Not lift more than 1/2 pound. Minimize narcotic use only as needed and directed, may use OTC NSAID and Tylenol to supplement/substitute for pain control. Follow Up Care Please Follow Up With: Abdiel Douglas DO When: 2 weeks Test Results: Test results from this visit will be discussed in further detail at your follow-up appointment, if applicable. Discharge Plan Admission Primary Reason for Your Visit: Right carpal tunnel release Attending Provider: Abdiel Douglas Primary Care Provider: Nic Samuels Instructions Print Language: Malawian Discharge Orders/Prescriptions Prescriptions: New oxycodone 5 mg tablet 5 - 10 mg PO Q4H PRN (Reason: pain) 3 Days Qty: 10 0RF Continued sertraline 50 mg tablet 50 mg PO QDAY Qty: 30 1RF Rx Instructions: take 0.5 tablets daily for 14 days then take 1 tablet daily ibuprofen [Advil] 200 mg tablet 400 mg PO Q8H PRN (Reason: pain) sildenafil [Viagra] 25 mg tablet 25 mg PO QDAY PRN (Reason: sexual activity) Qty: 10 0RF Rx Instructions: administer 30 minutes to 4 hours before activity Referrals / Follow Up: Nic Samuels MD [Primary Care Provider] - Disposition Disposition (needs filled in before D/C Order can be placed): Home, Self Care 07/21/24 1159 Abdiel Jesegillesraheem DO CC: Dr. Nic Samuels MD Signed [facility] MR/POSTOP.[facility] 07-21-2024 MR/POSTOP.[facility] Medical Records Department [address] [place] [address] Anesthesia Postop Eval I 07/21/24 1155 MR#: [id number] Acct: [id number] Name: FESTUSRAIMUNDO Rep #: [id number] : 1980 44 From: Corrine Petersen CRNA PCP: Dr. Nic Samuels MD Status:REG SDC Y Race: C Location: [place] [address] Anesthesia: Postop Eval I Current Vital Signs Temperature: 97.6 F Pulse Rate: 68 Blood Pressure: 110/75 Respiratory Rate: 16 Pulse Ox: 97 Oxygen Delivery Method: Room Air Assessment Airway patent: Yes Spontaneous unlabored respirations: Yes Mental status: Awake and Calm nausea: No Vomiting: No Anesthesia Complication: No Fluid Hydration Crystalloid volume administer (ml): 30 Total IV fluid infused: 30 Progress Note Anesthesia document: Postop Eval 1 completed: Yes 07/21/24 1156 Date Corrine Petersen WIRE BENDER HAND Cosigner Signature: Date CC: Signed Normal [facility] MR/ZQGPHOYR7is 07-21-2024 MR/POSTOPAN2 [facility] Medical Records Department [address] [place] [address] Anesthesia Postop Eval II 07/21/24 1242 MR#: [id number] Acct: [id number] Name: RAIMUNDO SCHROEDER Rep #: [id number] : 1980 44 From: Homero Jones MD PCP: Dr. Nic Samuels MD Status[place] [place]: C [place] [facility] [place]esthesia Postop Eval I Sum Postop Eval Completion status Anesthesia document: Postop Eval 1 completed: Yes Anesthesia Postop Eval I Summary Anesthesia Postop Eval I Summary: Anesthesia Postop Eval I: Assessment Summary Airway patent Yes 07/21/24 11:56 WIRE BENDER HAND.SKOBY Spontaneous unlabored Yes 07/21/24 11:56 WIRE BENDER HAND.SKOBY respirations Mental status Awake,Calm 07/21/24 11:56 WIRE BENDER HAND.SKOBY nausea No 07/21/24 11:56 WIRE BENDER HAND.SKOBY Vomiting No 07/21/24 11:56 WIRE BENDER HAND.SKOBY Anesthesia Postop Eval I: Fluid Summary Crystalloid volume administer 30 07/21/24 11:56 WIRE BENDER HAND.SKOBY (ml) Colloids volume administered ( ml) Blood Product volume administered (ml) Total IV fluid infused 30 07/21/24 11:56 WIRE BENDER HAND.SKOBY Anesthesia Postop Eval I: Summary Notes Anesthesia Complication No 07/21/24 11:56 WIRE BENDER HAND.SKOBY Anesthesia Complication Comment: Post-operative progress note Anesthesia: Postop Eval II Evaluation Mental status: Awake Pain Level: 0 nausea: No Vomiting: No 07/21/24 1242 Date Homero Jones MD Cosigner Signature: Date CC: Signed Normal [facility] Operative Reporton 4 Operative Report [facility] Medical Records Department [address] [place] [address] Operative Report 07/21/24 1156 MR#: [id number] Acct: [id number] Name: RAIMUNDO SCHROEDER Rep #: [id number] : 1980 44 From: Abdiel Douglas DO PCP: Dr. Nic Samuels MD Status:[facility] Location: [place] [address] Operative Report (Standard) Operative Information Date of Procedure: 07/21/24 Pre-Operative Diagnosis: Right carpal tunnel syndrome Post-Operative Diagnosis: Same Surgery/Procedure Performed: Right carpal tunnel release sand tester: Yes Qa Analyst: Veronica Moeller Tasks completed by medical assistant instructor: Opening closing Type of Anesthesia: Local and MAC RN Documented Start/Stop Times: Operation Date: 07/21/24 11:15 Case Time Into Pre-Op 07/21/24 09:50 Out of Pre-Op 07/21/24 11:10 Anesthesia Start 07/21/24 11:14 Into Room 07/21/24 11:14 Procedure Start 07/21/24 11:33 Procedure End 07/21/24 11:48 Anesthesia End 07/21/24 11:50 Out of Room 07/21/24 11:50 Into Recovery Procedure Start Time: 11:33 Procedure Stop Time: 11:48 Select all DRAINS/GRAFTS/IMPLANT S that apply: None Estimated Blood Loss: 0 Specimen collected: No Description of surgery: Preoperative diagnosis; right carpal tunnel syndrome Postoperative diagnosis; same Procedure: Right open carpal tunnel release Anesthesia: Local with MAC Tourniquet time; 10 minutes 250 mm Hg Complications: None Indication for procedure; This is a 44-year-old male with long-standing symptoms consistent with carpal tunnel syndrome the patient did have electrodiagnostic evidence of this and has failed conservative treatment. Risks benefits and alternatives were reviewed including risks of bleeding infection nerve artery tissue damage need for further surgery and continued pain and symptoms, hypersensitivity to scar and Pillar pain. Procedure; The patient was met in the preoperative holding area the operative extremity was identified by both patient and physician and was marked the patient was met by anesthesia and brought back to the operating room and transferred to the operating table in the supine position. Anesthesia was started. A well-padded tourniquet was placed on the operative upper extremity. The patient was prepped and draped in the usual sterile fashion. A timeout was called to ensure the proper patient procedure and extremity were being contemplated. 0.5 percent lidocaine with epinephrine was injected into the incisional area. An Esmarch was used to exsanguinate the extremity. The tourniquet was inflated to 250 mmHg. A midline incision was made with a 15 blade scalpel between the thenar and hypothenar eminence. This was carried down through the skin and subcutaneous tissue. Med retractors were then used, a deep blade scalpel was used to make a deep incision in the palmar aponeurosis. The med retractors were then placed deep to this and the transverse carpal ligament was identified a perforation was made with a scalpel and a Littler scissors were used to complete the release of the transverse carpal ligament distally under direct visualization with the tips facing ulnarly until the perivascular fat was reached. Then turning our attention proximally using a tension slide technique the proximal extent of the transverse carpal ligament was released . There was noted to be significant thickening and hypertrophy of the transverse carpal ligament. The wound was thoroughly irrigated and was closed with 4-0 nylon vertical mattress stitches. Dressing was applied in the form of xeroform 4 x 4, web roll and an tomasa wrap. Tourniquet was let down there is no intraoperative complications patient tolerated the procedure well and was transferred to the PACU. All counts were correct. Surgical Findings: Hypertrophied transverse carpal ligament Complications Complications: No 07/21/24 1157 Cosigner Signature (if applicable): CC: Dr. Nic Samuels MD; Dr. Abdiel Douglas DO Signed Normal [facility] MR/BMS.BPon 07-17-2024 MR/BMS.BP [address], [address] [place] [address] OFFICE VISIT Date of Service: 07/17/24 MR#: [id number] Acct: [id number] Name: RAIMUNDO SCHROEDER Rep #: [id number] : 1980 Provider: [facility] Jolly luciano Age/Sex: 44/M Location: [place].BP Status: Signed Intake Vital Signs 07/06/24 11:04 07/09/24 09:29 Height 6 ft 6 ft BP Intake Visit Reasons: Follow up Allergies poison danielle extract Allergy (Severe, Verified 07/13/24 09:20) Rash [facility] Medical History (Updated 07/17/24 @ 12:39 by Jolly Reyna [facility]) Loss of hearing Depression Anxiety Marijuana use Alcohol use Restless legs Back pain History of pain when walking Former smoker Anal or rectal pain Colon cancer screening Preventative health care Right groin pain Bilateral carpal tunnel syndrome Scoliosis Seasonal allergies Surgical History (Updated 07/08/24 @ 09:43 by Margot Chapa) H/O Spinal surgery History of vasectomy Social History (Updated 07/06/24 @ 11:02 by Erika Kingsley MA) adopted: No household members: significant other number of children: 1 current occupational status: employed 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 pets and animals: Yes pets and animals: cat(s), dog(s) and fish sexually active: Yes Smoking Status: Former smoker quit date: 08/04/08 Tobacco: How many years used: 10 alcohol intake: current alcohol intake frequency: a few times a week Alcohol type: beer, wine and hard liquor substance use type: marijuana caffeine: Yes (2-3) Type: coffee what type of physical activity do you participate in: weight training and other details: LABOR frequency: 3-4 times per week seatbelt use: always do you feel safe at home: Yes HPI History of Present Illness Chief complaint: depression and relationship stessors HPI: Pt. is a 34 year-old male returning for therapy. He recently initiated psychiatric services at [facility] with Judith Weaver NP. He has started Zoloft and reports stomach upset and difficulty sleeping. He is aware that these side effects may reduce in 10-14 days and that it may take 4-6 weeks to experience a reduction in depressive symptoms. Pt. 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 This has resulted in less time ruminating and fewer conflicts with his partner. He struggles with ambivalence about the romantic relationship and fear about where he will live and work if it ends. Pt. complains of reduced sex life with his partner, less emotional connection, and arguments that have increased in frequency and intensity. He displays frequent negative thinking, worst case scenario thinking, should thinking, and all or nothing thinking. He spends much of his time ruminating and struggles to be present or mindful. Pt. will be spending time with his child and stepchild over the weekend. He is scheduled for carpal tunnel surgery in the next week and complains of foot pain. Passive SI. Future-oriented. Mother and child identified as protective factors. Therapeutic Interventions - Encouraged verbalizations of emotions while providing support. Focused on themes of relationship with father, impact of past divorce on present relationship, and negativity about self. Worked on thought patterns using CBT and ACT interventions. Assisted pt. in recognizing thinking distortions and exploring alternative thoughts. Worked on thought defusion and labeling thoughts as thoughts. Explored times pt. has been mindful and impact of mindfulness upon him. Provided psychoeducation on thinking distortions and mindfulness. Suicidal Ideation Current: Yes Intent: No Plan: No Past: Yes History of suicide attempt: No Suicide Risk Assessment Suicide risk factors: depression, hopelessness and physical illness/pain Suicide protective factors: connected to treatment, future looking, responsibility for family, family support and engaged in work Self Injurious Behavior Current: none Past: none Violent Behavior History of violent behavior: No Current/Previous Provider Psychiatrist: Judith Weaver NP Therapist: Jolly Reyna [facility] Exam Mental Status Exam - Psych Appearance casually dressed, adequately groomed and well kempt Attitude cooperative, calm and engaged Activity/Motor Behavior MSE activity/motor behavior finding no adventitious movements and appropriate eye contact Speech regular rate, regular volume and regular prosody Mood OK Affect constricted Thought Process linear, logical, coherent and goal directed Thought Content no delusions and no hallucinations Suicidal Ideation passive Homicidal Ideation none Attention intact Concentration intact Sensorium/Orientation alert and oriented x3 Memory/Cognition intact Insight good Judg (more content not included)... Normal [facility] Testosterone, Total / Freeon 07-14-2024 TESTOSTER,FREE 8.36 ng/dL Normal 5.00-21.00 [facility] Comment on above: Order Comment: N Performed By: #### L 500.4100, L100.0100, L3100.5310, L500.4050 ####[facility] [address] [place], [address] TESTOSTER,TOTAL 486 ng/dL Normal 264-916 [facility] Comment on above: Order Comment: N Result Comment: Adul t male reference interval is based on a population of healthy nonobese males (BMI <30) between 19 and 39 years old. jalen Castro.al. JCEM 2017,102;4784-8750. PMID: [id number]. Performed By: #### L 500.4100, L100.0100, L3100.5310, L500.4050 ####[facility] [address] [place], [place], [id number] TESTOSTERONE,%F 1.72 Normal 1.50-4.20 [facility] Comment on above: Order Comment: N Result Comment: Perf ormed at: [facility] [address] [id number] Rn Employee Health: Gregory Jarquin PhD, Phone: [phone] Performed at: [facility] [address] [id number] Rn Employee Health: Peng Chaudhari MD, Phone: [phone] Performed By: #### L 500.4100, L100.0100, L3100.5310, L500.4050 ####[facility] [address] [place], [place], [id number] CBC W/Diff, Automatedon 12-0 Absolute Lymph 1.55 X10 3/uL Normal 0.83-4.51 [facility] Comment on above: Performed By: #### L 500.4100, L100.0100, L3100.5310, L500.4050 ####[facility] [address] [place], [address] Absolute Neut 3.8 X10 3/uL Normal 2.0-7.7 [facility] Comment on above: Performed By: #### L 500.4100, L100.0100, L3100.5310, L500.4050 ####[facility] [address] [place], [address] Basophils/100 WBC (Bld) 0.5 % Normal 0-1 [facility] Comment on above: Performed By: #### L 500.4100, L100.0100, L3100.5310, L500.4050 ####[facility] [address] [place], [address] Eosinophils/100 WBC (Bld) 2.1 % Normal 0-5 [facility] Comment on above: Performed By: #### L 500.4100, L100.0100, L3100.5310, L500.4050 ####[facility] [address] [place], [address] Erythrocyte distribution width (RBC) [Ratio] 13.0 % Normal 11.6-14.6 [facility] Comment on above: Performed By: #### L 500.4100, L100.0100, L3100.5310, L500.4050 ####[facility] [address] [place], [address] Hematocrit (Bld) [Volume fraction] 48.6 % Normal 40-54 [facility] Comment on above: Performed By: #### L 500.4100, L100.0100, L3100.5310, L500.4050 ####[facility] [address] [place], [address] Hemoglobin (Bld) [Mass/Vol] 15.8 g/dL Normal 13.0-16.5 [facility] Comment on above: Performed By: #### L 500.4100, L100.0100, L3100.5310, L500.4050 ####[facility] [address] [place], [address] IG% 0.800 Normal 0.0-0.9 [facility] Comment on above: Result Comment: IG% - Immature Granulocytes (promyelocytes, myelocytes and metamyelocytes) > 1% indicates that a LEFT SHIFT is Present. Performed By: #### L 500.4100, L100.0100, L3100.5310, L500.4050 ####[facility] [address] [place], [address] Lymphocytes/100 WBC (Bld) 24.8 % Normal 19-41 [facility] Comment on above: Performed By: #### L 500.4100, L100.0100, L3100.5310, L500.4050 ####[facility] [address] [place], [address] MCH (RBC) [Entitic mass] 30.9 pg Normal 27.0-32.0 [facility] Comment on above: Performed By: #### L 500.4100, L100.0100, L3100.5310, L500.4050 ####[facility] [address] [place], [address] MCHC (RBC) [Mass/Vol] 32.5 g/dL Normal 32-36 [facility] Comment on above: Performed By: #### L 500.4100, L100.0100, L3100.5310, L500.4050 ####[facility] [address] [place], [address] MCV (RBC) [Entitic vol] 95.1 fL High 80-94 [facility] Comment on above: Performed By: #### L 500.4100, L100.0100, L3100.5310, L500.4050 ####[facility] [address] [place], [address] Monocytes/100 WBC (Bld) 11.3 % High 0-10 [facility] Comment on above: Performed By: #### L 500.4100, L100.0100, L3100.5310, L500.4050 ####[facility] [address] [place], [address] Neutrophils/100 WBC (Bld) 60.5 % Normal 47-70 [facility] Comment on above: Performed By: #### L 500.4100, L100.0100, L3100.5310, L500.4050 ####[facility] [address] [place], [address] Nucleated RBC (Bld) [#/Vol] 0 10*3/uL Normal 0-5 [facility] Comment on above: Performed By: #### L 500.4100, L100.0100, L3100.5310, L500.4050 ####[facility] [address] [place], [address] Platelet mean volume (Bld) [Entitic vol] 10.0 fL Normal 6.2-12.0 [facility] Comment on above: Performed By: #### L 500.4100, L100.0100, L3100.5310, L500.4050 ####[facility] [address] [place], [address] Platelets (Bld) [#/Vol] 283 10*3/uL Normal 150-450 [facility] Comment on above: Performed By: #### L 500.4100, L100.0100, L3100.5310, L500.4050 ####[facility] [address] [place], [address] RBC (Bld) [#/Vol] 5.11 10*6/uL Normal 4.6-6.2 [facility] Comment on above: Performed By: #### L 500.4100, L100.0100, L3100.5310, L500.4050 ####[facility] [address] [place], [address] RDW SD 45.9 fl High 35.1-43.9 [facility] Comment on above: Performed By: #### L 500.4100, L100.0100, L3100.5310, L500.4050 ####[facility] [address] [place], [address] WBC (Bld) [#/Vol] 6.3 10*3/uL Normal 4.4-11.0 [facility] Comment on above: Performed By: #### L 500.4100, L100.0100, L3100.5310, L500.4050 ####[facility] [address] [place], [address] Comprehensive Metabolic Prof ilon 07-09-2024 Albumin [Mass/Vol] 4.0 g/dL Normal 3.2-5.0 [facility] Comment on above: Performed By: #### L 500.4100, L100.0100, L3100.5310, L500.4050 ####[facility] [address] [place], [address] Albumin/Globulin [Mass ratio] 1.1 {ratio} Normal 0.9-2.4 [facility] Comment on above: Performed By: #### L 500.4100, L100.0100, L3100.5310, L500.4050 ####[facility] [address] [place], [address] ALK P 80 U/L Normal 45-117 [facility] Comment on above: Performed By: #### L 500.4100, L100.0100, L3100.5310, L500.4050 ####[facility] [address] [place], [address] ALT [Catalytic activity/Vol] 23 U/L Normal 16-61 [facility] Comment on above: Performed By: #### L 500.4100, L100.0100, L3100.5310, L500.4050 ####[facility] [address] [place], [address] AST [Catalytic activity/Vol] 14 U/L Low 15-37 [facility] Comment on above: Performed By: #### L 500.4100, L100.0100, L3100.5310, L500.4050 ####[facility] [address] [place], [address] Bilirubin [Mass/Vol] 0.40 mg/dL Normal 0.20-1.00 [facility] Comment on above: Result Comment: For patients on eltrombopag therapy, use of Dimension [place] TBIL is not recommended. Performed By: #### L 500.4100, L100.0100, L3100.5310, L500.4050 ####[facility] [address] [place], [address] BUN/CRE 24.6 RATIO High 10-20 [facility] Comment on above: Performed By: #### L 500.4100, L100.0100, L3100.5310, L500.4050 ####[facility] [address] [place], [address] CA,Total 9.2 mg/dL Normal 8.5-10.1 [facility] Comment on above: Performed By: #### L 500.4100, L100.0100, L3100.5310, L500.4050 ####[facility] [address] [place], [address] Chloride [Moles/Vol] 104 mmol/L Normal 98-107 [facility] Comment on above: Performed By: #### L 500.4100, L100.0100, L3100.5310, L500.4050 ####[facility] [address] [place], [address] CO2 [Moles/Vol] 27.0 mmol/L Normal 21.0-32.0 [facility] Comment on above: Performed By: #### L 500.4100, L100.0100, L3100.5310, L500.4050 ####[facility] [address] [place], [address] Creatinine [Mass/Vol] 0.90 mg/dL Normal 0.70-1.30 [facility] Comment on above: Result Comment: The validity of the calculated GFR GFRAA in patients over 70 years has not been determined. Clinical correlation is essential. Performed By: #### L 500.4100, L100.0100, L3100.5310, L500.4050 ####[facility] [address] [place], [address] EST GFR - AA 118 mL/min Normal >60 [facility] Comment on above: Result Comment: Afri can [place] GFR Calc Performed By: #### L 500.4100, L100.0100, L3100.5310, L500.4050 ####[facility] [address] [place], [address] GAP 6 Normal 5-15 [facility] Comment on above: Performed By: #### L 500.4100, L100.0100, L3100.5310, L500.4050 ####[facility] [address] [place], [address] GFR/1.73 sq M.predicted among non-blacks MDRD (S/P/Bld) [Vol rate/Area] 97 mL/min/{1.73_m2} Normal >60 [facility] Comment on above: Result Comment: Non- GFR Calc Performed By: #### L 500.4100, L100.0100, L3100.5310, L500.4050 ####[facility] [address] [place], [address] Globulin (S) [Mass/Vol] 3.8 g/dL Normal 2.2-4.2 [facility] Comment on above: Performed By: #### L 500.4100, L100.0100, L3100.5310, L500.4050 ####[facility] [address] [place], [address] Glucose [Mass/Vol] 67 mg/dL Low 74-106 [facility] Comment on above: Performed By: #### L 500.4100, L100.0100, L3100.5310, L500.4050 ####[facility] [address] [place], [address] Potassium [Moles/Vol] 4.2 mmol/L Normal 3.5-5.1 [facility] Comment on above: Performed By: #### L 500.4100, L100.0100, L3100.5310, L500.4050 ####[facility] [address] [place], [address] Sodium [Moles/Vol] 137 mmol/L Normal 136-145 [facility] Comment on above: Performed By: #### L 500.4100, L100.0100, L3100.5310, L500.4050 ####[facility] [address] [place], [address] T PROT 7.8 g/dL Normal 6.4-8.2 [facility] Comment on above: Performed By: #### L 500.4100, L100.0100, L3100.5310, L500.4050 ####[facility] [address] [place], [address] Urea nitrogen [Mass/Vol] 22 mg/dL High 7-18 [facility] Comment on above: Performed By: #### L 500.4100, L100.0100, L3100.5310, L500.4050 ####[facility] [address] [place], [address] Lipid Profileon 07-09-2024 Cholesterol [Mass/Vol] 267 mg/dL High 200 [facility] Comment on above: Result Comment: <200 mg/dL Desirable 200-240 mg/dL Borderline >240 mg/dL High Risk Performed By: #### L 500.4100, L100.0100, L3100.5310, L500.4050 ####[facility] [address] [place], [address] Cholesterol in HDL [Mass/Vol] 69 mg/dL Normal [facility] Comment on above: Result Comment: The drugs N-Acetylcysteine and Metamizole may falsely depress this assay. Reference Range HDL <40 mg/dL Low HDL Cholesterol HDL >or= 60 mg/dL High HDL Cholesterol Performed By: #### L 500.4100, L100.0100, L3100.5310, L500.4050 ####[facility] [address] [place], [address] Cholesterol in LDL [Mass/Vol] 174 mg/dL High 0-130 [facility] Comment on above: Performed By: #### L 500.4100, L100.0100, L3100.5310, L500.4050 ####[facility] [address] [place], [address] Cholesterol in VLDL [Mass/Vol] 24 mg/dL Normal 5-40 [facility] Comment on above: Performed By: #### L 500.4100, L100.0100, L3100.5310, L500.4050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 He states that the pain has started to wake him up at night along with he has noticed more numbness and tingling. He states that his right hand is worse. Exam Details: Details:: Exam was limited due to phone visit with no video. Supplemental Info 07/25/2023 EMG bilateral upper extremity: 1) Mild, bilateral median mononeuropathies at the wrists (carpal tunnel syndrome), with sensory fiber demyelination Coding Level of Care Code Level 3 Telephone Diagnoses Bilateral carpal tunnel syndrome G56.03 Assessment and Plan Assessment and Plan (1) Bilateral carpal tunnel syndrome: Status: Chronic Plan Patient would like to proceed with a right open carpal tunnel release. Wrist benefits of surgery were reviewed including risk of bleeding infection nerve artery tissue damage need for further surgery continued pain incisional hypersensitivity continued symptoms and pillar pain for up to several months after surgery. He was instructed about the postoperative restrictions weightbearing ,he was instructed to hold NSAIDs for 7 days prior to surgery tentative surgery date July 21, 2024. I do not want to know why he is having such continued severe pain after his last injection. 06/15/24 0955 Date Víctor Carmona Signature: Date (if applicable) CC: Normal [facility] XR FOOT 3V AP/LAT/OBL BILon 06-15-2024 XR FOOT 3V AP/LAT/OBL BE * * *Final Report* * * DATE OF EXAM: Jun 15 2024 4:42PM WRX [id number] - XR FOOT 3V AP/LAT/OBL BE / PROCEDURE REASON: multiple diagnoses * * * * Physician Interpretation * * * * PROCEDURE: Bilateral feet INDICATION: Neuroma Hammertoe, bilateral Hammertoe, bilateral .PT STATES BILAT FOOT PAIN TECHNIQUE: XR FOOT 3V AP/LAT/OBL BE COMPARISON: None FINDINGS/ IMPRESSION: No acute fracture or dislocation. Small plantar calcaneal spurs bilaterally, left larger than right. Hammertoe deformity of the 2nd toes bilaterally. Food Service Steward: DOROTEO Transcribe Date/Time: Jun 20 2024 8:03A Dictated by : MARIA DEL CARMEN BACA MD This examination was interpreted and the report reviewed and electronically signed by: MARIA DEL CARMEN BACA MD on Jun 20 2024 8:04AM EST [id number] Normal [facility] XR Foot - bilateral AP and L ateral and obliqueon 06-15-2024 Radiology Study observation (narrative) [facility] Absolute lymphocyte countOrd ered By: Nic Samuels on 07-12-2023 Lymphocytes Auto (Unsp spec) [#/Vol] 1.93 10*3/uL 0.83-4.51 [facility] Basophil percentageOrdered B y: Nic Samuels on 07-12-2023 Basophils/100 WBC (Bld) 0.7 % 0-1 [facility] Bilirubin [Mass/Vol] 0.30 mg/dL 0.20-1.00 [facility] Comment on above: For patients on eltr ombopag therapy, use of Dimension [place] TBIL is not recommended. Chloride [Moles/Vol] 108 mmol/L 98-107 [facility] Cholesterol [Mass/Vol] 247 mg/dL <200 [facility] Comment on above: <200 mg/dL Desirable 200-240 mg/dL Borderline >240 mg/dL High Risk Eosinophils/100 WBC (Bld) 2.2 % 0-5 [facility] Glucose [Mass/Vol] 87 mg/dL 74-106 [facility] Neutrophils (Bld) [#/Vol] 2.6 10*3/uL 2.0-7.7 [facility] Neutrophils/100 WBC (Bld) 48.6 % 47-70 [facility] Potassium [Moles/Vol] 4.3 mmol/L 3.5-5.1 [facility] Protein [Mass/Vol] 7.5 g/dL 6.4-8.2 [facility] Sodium [Moles/Vol] 138 mmol/L 136-145 [facility] Triglyceride [Mass/Vol] 76 mg/dL <199 [facility] Comment on above: The drugs N-Acetylcy steine and Metamizole may falsely depress this assay.Serum Triglycerides Reference Interval Normal <150 mg/dL Borderline high 150 - 199 mg/dL High 200 - 499 mg/dL Very High > or = 500 mg/dL WBC (Bld) [#/Vol] 5.4 10*3/uL 4.4-11.0 [facility] Blood erythrocytes count (nu mber/volume)Ordered By: Nic Samuels on 07-12-2023 RBC (Bld) [#/Vol] 4.84 10*6/uL 4.6-6.2 [facility] Blood hemoglobin measurement (mass/volume)Ordered By: Nic Samuels on 07-12-2023 Hemoglobin (Bld) [Mass/Vol] 14.7 g/dL 13.0-16.5 [facility] Blood lymphocytes/100 leukoc ytesOrdered By: Nic Samuels on 07-12-2023 Lymphocytes/100 WBC (Bld) 36.1 % 19-41 [facility] Blood monocytes/100 leukocyt esOrdered By: Nic Samuels on 07-12-2023 Monocytes/100 WBC (Bld) 11.8 % 0-10 [facility] Blood platelet mean volumeOr dered By: Nic Samuels on 07-12-2023 Platelet mean volume (Bld) [Entitic vol] 10.5 fL 6.2-12.0 [facility] Determination of erythrocyte mean corpuscular volume (MCV)Ordered By: Nic Samuels on 07-12-2023 MCV (RBC) [Entitic vol] 93.6 fL 80-94 [facility] Hematocrit Auto (Bld) [Volum e fraction]Ordered By: Nic Samuels on 07-12-2023 Hematocrit (Bld) [Volume fraction] 45.3 % 40-54 [facility] Laboratory - Chemistry and C hemistry - challengeOrdered By: joyamargosa valleyfatou Samuels on 07-12-2023 ALP [Catalytic activity/Vol] 72 U/L 45-117 [facility] ALT [Catalytic activity/Vol] 36 U/L 16-61 [facility] CO2 [Moles/Vol] 28.0 mmol/L 21.0-32.0 [facility] Globulin (S) [Mass/Vol] 3.6 g/dL 2.2-4.2 [facility] Urea nitrogen/Creatinine [Mass ratio] 15.9 mg/mg 10-20 [facility] Laboratory - Hematology and Cell countsOrdered By: Luiamargosa valleyfatou Samuels on 07-12-2023 Erythrocyte distribution width (RBC) [Entitic vol] 46.9 fL 35.1-43.9 [facility] Erythrocyte distribution width (RBC) [Ratio] 13.4 % 11.6-14.6 [facility] Immature granulocytes/100 WBC (Bld) 0.600 % 0.0-0.9 [facility] Comment on above: IG% - Immature Granu locytes (promyelocytes, myelocytes and metamyelocytes) > 1% indicates that a LEFT SHIFT is Present. MCH (RBC) [Entitic mass] 30.4 pg 27.0-32.0 [facility] Nucleated RBC/100 WBC (Bld) [Ratio] 0 % 0-5 [facility] MCHC Auto (RBC) [Mass/Vol]Or dered By: Nic Samuels on 07-12-2023 MCHC (RBC) [Mass/Vol] 32.5 g/dL 32-36 [facility] No Panel InformationOrdered By: Nic Samuels on 07-12-2023 Estimated GFR (MDRD) Amer 121 mL/min >60 [facility] Comment on above: GFR Calc Estimated GFR (MDRD) Non-Af Amer 100 mL/min >60 [facility] Comment on above: Non- GFR Calc Prostate Specific Antigen Screen 0.30 ng/mL 0.00-4.00 [facility] Comment on above: This test was perfor med using the TPSA assay method for theWugly chemistry system. Values obtained with differentassay methods cannot be used interchangably.When changing PSA assays in the course of monitoring apatient, additional sequential testing should be carriedout to confirm baseline values. Platelets bldOrdered By: Riley Samuels on 07-12-2023 Platelets (Bld) [#/Vol] 288 10*3/uL 150-450 [facility] Serum or plasma albumin whitney urement (mass/volume)Ordered By: Nic Samuels on 07-12-2023 Albumin [Mass/Vol] 3.9 g/dL 3.2-5.0 [facility] Serum or plasma albumin/glob ulin mass ratioOrdered By: Nic Samuels on 07-12-2023 Albumin/Globulin [Mass ratio] 1.1 {ratio} 0.9-2.4 [facility] Serum or plasma calcium whitney urement (mass/volume)Ordered By: Nic Samuels on 07-12-2023 Calcium [Mass/Vol] 9.2 mg/dL 8.5-10.1 [facility] Serum or plasma cholesterol in HDL measurement (mass/volume)Ordered By: Nic Samuels on 07-12-2023 Cholesterol in HDL [Mass/Vol] 66 mg/dL >40 [facility] Comment on above: The drugs N-Acetylcy steine and Metamizole may falsely depress this assay. Reference Range HDL <40 mg/dL Low HDL Cholesterol HDL >or= 60 mg/dL High HDL Cholesterol Serum or plasma cholesterol in VLDL measurement (mass/volume)Ordered By: Nic Samuels on 07-12-2023 Cholesterol in VLDL [Mass/Vol] 15 mg/dL 5-40 [facility] Serum or plasma creatinine m easurement (mass/volume)Ordered By: Nic Samuels on 07-12-2023 Creatinine [Mass/Vol] 0.88 mg/dL 0.70-1.30 [facility] Comment on above: The validity of the calculated GFR & GFRAA in patients over 70 years has not been determined. Clinical correlation is essential. Serum or plasma low density lipoprotein (LDL) cholesterol measurement (mass/volume)Ordered By: Luiamargosa valleyfatou Samuels on 07-12-2023 Cholesterol in LDL [Mass/Vol] 166 mg/dL 0-130 [facility] Serum or plasma urea nitroge n measurement (mass/volume)Ordered By: joyamargosa valleyfatou Samuels on 07-12-2023 Urea nitrogen [Mass/Vol] 14 mg/dL 7-18 [facility] Thin prep Papanicolaou smear with manual screeningOrdered By: [facility] Samuels on 07-12-2023 Thin prep Papanicolaou smear with manual screening 22 U/L 15-37 [facility] Thin prep Papanicolaou smear with manual screening 2 5-15 [facility] CNOVon 11-05-2018 CNOV Office Visit (AKURFL ) RAIMUNDO SCHROEDER ([id number]) 1980 Date Time Provider Department 11/05/18 8:00 AM NU KONG JR AKURFL During your visit today, we recorded the following information about you: Referring Provider: ROBINA BLUM) [[id number]] Allergies As of Date: 11/05/2018 (No Known Allergies) Date Reviewed: 10/31/2018 Reviewed by: Alisha Simpson (Adrian) ADRIAN Flores - Fully Assessed Reason for Visit: Vasectomy-1 [118] Cmt: semen analysis Primary Visit Diagnosis:Encounter for sterilization [Z30.2] Order(s):SEMEN ANALYSIS B/O [[id number]] Order #: [id number] Problem List As Of Date 11/05/2018 Noted Resolved Seasonal allergic rhinitis [J30.2] INVALID FOR* Herpes genitalis in men [A60.02] INVALID FOR* Encounter Status:Closed by NU KONG MD on 11/05/18 Normal [facility] PROGRESSon 11-05-2018 Protein mass conc HNO ID: [id number] Author: Nu Kong Jr. Service: ? 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 Normal [facility] ED Provider Noteon 7 HIM IP Note OR [employer]per [employer] Normal [facility] Vital Signs Date Time Vital Sign Value Performing Clinician Facility 08-26-2024 18:38-0500 Body mass index (BMI) [Ratio] 29.05 kg/m2 Krislyn Aberegg PA Work Phone: [facility] 08-26-2024 18:38-0500 Body temperature 97.39 [degF] Krislyn Aberegg PA Work Phone: [facility] 08-26-2024 18:38-0500 Body weight 95.8 kg Krislyn Aberegg PA Work Phone: [facility] 08-26-2024 18:38-0500 Diastolic blood pressure 90 mm[Hg] Krislyn Aberegg PA Work Phone: [facility] 08-26-2024 18:38-0500 Heart rate 64 /min Krislyn Aberegg PA Work Phone: [facility] 08-26-2024 18:38-0500 Respiratory rate 18 /min Krislyn Aberegg PA Work Phone: [facility] 08-26-2024 18:38-0500 SaO2% (BldA) [Mass fraction] 98 % Krislyn Aberegg PA Work Phone: [facility] 08-26-2024 18:38-0500 Systolic blood pressure 136 mm[Hg] Rocco WINSTON Work Phone: [facility] 07-12-2023 11:38-0500 Body height 182.88 cm No Primary Care Physician [facility] 07-12-2023 11:38-0500 Body mass index (BMI) [Ratio] 28.5 kg/m2 No Primary Care Physician [facility] 07-12-2023 11:38-0500 Body temperature 98 [degF] No Primary Care Physician [facility] 07-12-2023 11:38-0500 Body weight 95.25 kg No Primary Care Physician [facility] 07-12-2023 11:38-0500 Diastolic blood pressure 80 mm[Hg] No Primary Care Physician [facility] 07-12-2023 11:38-0500 Heart rate 69 /min No Primary Care Physician [facility] 07-12-2023 11:38-0500 Respiratory rate 16 /min No Primary Care Physician [facility] 07-12-2023 11:38-0500 SaO2% (BldA) [Mass fraction] 95 % No Primary Care Physician [facility] 07-12-2023 11:38-0500 Systolic blood pressure 120 mm[Hg] No Primary Care Physician [facility] 06-24-2023 10:55-0500 Body temperature 97 [degF] Shilpi Athy PA-C Work Phone: [facility] 06-24-2023 10:55-0500 Body weight 92.53 kg Shilpi Athy PA-C Work Phone: [facility] 06-24-2023 10:55-0500 Diastolic blood pressure 74 mm[Hg] Shilpi Athy PA-C Work Phone: [facility] 06-24-2023 10:55-0500 Heart rate 96 /min Shilpi Athy PA-C Work Phone: [facility] 06-24-2023 10:55-0500 Respiratory rate 16 /min Shilpi Athy PA-C Work Phone: [facility] 06-24-2023 10:55-0500 SaO2% (BldA) [Mass fraction] 96 % Shilpi Athy PA-C Work Phone: [facility] 06-24-2023 10:55-0500 Systolic blood pressure 122 mm[Hg] Shilpi Mills PA-C Work Phone: [facility] Encounters Encounter Date Encounter Type Care Provider Facility Start: 06-10-2025 End: 06-10-2025 ambulatory Efewongbe Oleghe Facility:[facility] Start: 05-28-2025 End: 05-28-2025 ambulatory Lavonne Deeerer Facility:[facility] Start: 05-28-2025 End: 05-28-2025 ambulatory Efewongbe Oleghe Facility:[facility] Start: 05-24-2025 End: 05-24-2025 ambulatory Abdiel Jeseraheem Facility:[facility] Start: 05-11-2025 End: 05-11-2025 ambulatory Efewongbe Oleghe Facility:[facility] Start: 04-15-2025 End: 04-15-2025 ambulatory Efewongbe Oleghe Facility:[facility] Start: 04-06-2025 End: 04-06-2025 ambulatory Efewongbe Oleghe Facility:[facility] Start: 02-16-2025 ambulatory Efewongbe Oleghe Facili ty:[facility] Start: 02-01-2025 End: 02-01-2025 ambulatory Efewongbe Oleghe Facility:[facility] Start: 01-08-2025 End: 01-08-2025 ambulatory Efewongbe Oleghe Facility:[facility] Start: 12-10-2024 End: 12-10-2024 ambulatory Efewongbe Oleghe Facility:[facility] Start: 11-26-2024 End: 11-26-2024 ambulatory Efewongbe Oleghe Facility:[facility] Start: 11-12-2024 End: 11-12-2024 ambulatory Efewongbe Oleghe Facility:[facility] Start: 11-05-2024 End: 11-05-2024 ambulatory Efewongbe Oleghe Facility:[facility] Start: 10-27-2024 End: 10-27-2024 ambulatory Efewongbe Oleghe Facility:[facility] Start: 10-01-2024 End: 10-01-2024 ambulatory Efewongbe Oleghe Facility:[facility] Start: 09-29-2024 End: 09-29-2024 ambulatory VERONICA PAGAN Facility:[facility] Start: 09-29-2024 End: 09-29-2024 Patient encounter procedure Veronica Pagan Work Phone: Podiatry Comment on above: Plantar plate injury , left, sequela (Primary Dx) Start: 09-17-2024 End: 09-17-2024 ambulatory [facility] Facility:[place] Start: 09-15-2024 ambulatory [facility] Facility :[place] Start: 09-15-2024 End: 09-15-2024 ambulatory [facility] Facility:[facility] Start: 09-03-2024 End: 09-03-2024 ambulatory [facility] Facility:[place] Start: 09-03-2024 End: 09-03-2024 ambulatory [facility] Facility:[place] Start: 09-01-2024 End: 09-01-2024 ambulatory VERONICA PAGAN [place] [facility] Start: 09-01-2024 End: 09-01-2024 Subsequent hospital visit by physician [address] Radiology Comment on above: Neuroma [D36.10] Start: 08-26-2024 End: 08-26-2024 ambulatory ROBINA BLUM Facility:[facility] Start: 08-26-2024 End: 08-26-2024 Patient encounter procedure Rocco WINSTON Work Phone: [facility] Comment on above: Puncture wound (Prim leida Dx); Need for tetanus, diphtheria, and acellular pertussis (Tdap) vaccine Start: 08-20-2024 End: 08-20-2024 ambulatory [facility] Facility:[place] Start: 08-13-2024 End: 08-13-2024 ambulatory [facility] Facility:[place] Start: 08-07-2024 Encounter for genera l adult medical examination without abnormal findings [facility] Start: 08-07-2024 End: 08-07-2024 ambulatory [facility] Facility:[place] Start: 08-06-2024 End: 08-06-2024 ambulatory Nic Mahmoode Facility[facility] Start: 08-04-2024 End: 08-04-2024 Telephone encounter Jason CHEATHAM Radiology Comment on above: Appointment Start: 08-04-2024 End: 08-04-2024 Patient encounter procedure Veronica Pagan Work Phone: Podiatry Comment on above: Neuroma (Primary Dx) Start: 08-04-2024 End: 08-04-2024 ambulatory VERONICA PAGAN Facility:[facility] Start: 07-24-2024 End: 07-24-2024 ambulatory Nic Samuels Facility:[facility] Start: 07-21-2024 End: 07-21-2024 ambulatory Abdiel Misael Facility:[facility] Start: 07-17-2024 End: 07-17-2024 ambulatory Jolly Leemark [facility] Start: 07-09-2024 ambulatory [facility] Start: 07-09-2024 End: 07-09-2024 ambulatory Nic Mahmoode Facility:[facility] Start: 07-09-2024 End: 07-09-2024 [facility] Start: 07-07-2024 End: 07-07-2024 ambulatory Jolly Reyna [facility] Start: 07-06-2024 End: 07-06-2024 ambulatory Nic Samuels Facility:[facility] Start: 06-20-2024 End: 06-29-2024 ambulatory Veronica Pagan Work Phone: Podiatry Comment on above: Xray questions Start: 06-15-2024 End: 06-15-2024 Subsequent hospital visit by physician [facility] Work Phone: Radiology Comment on above: Neuroma [D36.10] Start: 06-15-2024 End: 06-15-2024 ambulatory VERONICA PAGAN Facility:[facility] Start: 06-15-2024 End: 06-15-2024 Patient encounter procedure Veronica Pagan Work Phone: Podiatry Comment on above: Neuroma (Primary Dx) ; Hammertoe, bilateral Start: 06-15-2024 End: 06-15-2024 ambulatory Abdiel Douglas Facility[facility] Start: 07-25-2023 Non-patient / Non-visit No Primary Care Physician [facility] Start: 07-25-2023 End: 07-25-2023 ambulatory No Primary Care Physician [facility] Work Phone: Start: 07-25-2023 End: 07-25-2023 Patient encounter procedure No Primary Care Physician [facility]/Neurology Work Phone: Start: 07-12-2023 End: 07-12-2023 ambulatory No Primary Care Physician [facility] Work Phone: Start: 07-12-2023 End: 07-12-2023 Patient encounter procedure No Primary Care Physician [facility]-Laboratory, [facility] Start: 07-12-2023 Patient encounter status No Primary Care Physician [facility] Start: 07-12-2023 End: 07-12-2023 Encounter for general adult medical examination without abnormal findings No Primary Care Physician [facility] Start: 07-12-2023 End: 07-12-2023 Patient encounter procedure No Primary Care Physician [facility] Work Phone: Start: 06-24-2023 End: 06-24-2023 Patient encounter procedure Shilpi Mills PA-C Work Phone: [facility] Comment on above: Sinus congestion (Pr imary Dx); URI, acute Start: 04-08-2022 ambulatory Johan Odette rao PA-C Work Phone: Telemedicine Comment on above: Sinus problem (Prima ry Dx) Start: 11-05-2018 End: 11-06-2018 Patient encounter procedure NU KONG Facility:[facility] Start: 10-30-2018 Patient encounter procedure NU KONG Facility:[facility] Start: 02-26-2017 End: 02-26-2017 Emergency department patient visit Physician Paulette [facility] Procedures Date Procedure Procedure Detail Performing Clinician Start: 09-01-2024 Us lmtd joint/oth no nvasc xtr strux r-t w/img Veronica Pagan Work Phone: Start: 07-25-2023 Plain x-ray of pelvi s and lower extremity No Primary Care Physician Start: 02-12-2020 Lipid 1996 panel - S deondre or Plasma Shilpi Mills PA-C Work Phone: Start: 03-17-2018 Adult depression screening assessment Johan Gaston PA-C Work Phone: Plan of Treatment Date Care Activity Detail Author Start: 08-26-2034 Urine microalbumin profile DTaP,Tdap,Td Vaccine (4 - Td or Tdap) [facility] Start: 03-17-2028 Urine microalbumin profile [facility] Start: 07-13-2025 ambulatory Ambulatory Facility:[facility] Start: 02-11-2025 Lipid 1996 panel - Serum or Plasma Lipid Screening [facility] Start: 02-11-2025 Lipid panel Lipid Screening [facility] Start: 02-11-2025 LIPID SCREEN LIPID SCREEN [facility] Start: 09-01-2024 End: 09-01-2024 Patient encounter procedure 09/01/2024 3:45 PM EST Appointment Radiology [address] [place], [place] [id number] US FOOT LT; ARAUJO'S NEUROMA-EVAL LT 2ND IMS Radiology Comment on above: US FOOT LT; ARAUJO'S NEUROMA-EVAL LT 2ND IMS Start: 08-04-2024 End: 08-04-2024 Patient encounter procedure 08/04/2024 1:30 PM EST Office Visit Podiatry [address] [place] [address] Veronica Pagan [address] [address] left foot follow up Podiatry Comment on above: left foot follow up Start: 04-05-2024 Covid-19 Vaccine ( season) Covid-19 Vaccine ( season) [facility] Start: 04-05-2024 Influenza vaccination Influenza Vacc ine (#1) [facility] Start: 01-16-2024 Diabetes Screening Diabetes Screenin g [facility] Start: 01-16-2024 Screening for malign ant neoplasm of colon [facility] Start: 07-12-2023 Assay of prostate specific antigen total ASSAY OF PSA TOTAL [facility] Start: 07-12-2023 Patient referral [facility] Work Phone: Start: 04-05-2023 Covid-19 Vaccine () Covid-19 Vaccine () [facility] Start: 04-05-2023 Influenza vaccination Influenza Vacc ine (#1) [facility] Start: 08-05-2022 Depression Assessment Depression Ass essment [facility] Start: 04-05-2022 Influenza vaccination INFLUENZA (#1) [facility] Start: 03-17-2019 Adult depression screening assessment DEPRESSION SCREENING [facility] Start: 1998 Hepatitis B Vaccine (1 of 3 - 19+ 3-dose series) Hepatitis B Vaccine (1 of 3 - 19+ 3-dose series) [facility] Start: 1997 Anxiety Screening Anxiety Screening [facility] Start: 1997 Depression Screening Depression Scre ening [facility] Start: 1979 HEPATITIS B (1 of 3 - 3-dose series) HEPATITIS B (1 of 3 - 3-dose series) [facility] Start: 1979 Hepatitis B Vaccine (1 of 3 - 3-dose series) Hepatitis B Vaccine (1 of 3 - 3-dose series) [facility] Patient referral [facility] Work Phone: End: 09-03-2025 US Lower extremity - left US FOOT LEFT Radiology Routine Neuroma 1 Occurrences starting 08/04/2024 until 09/03/2025 [facility] Work Phone: Comment on above: 1 Occurrences starti ng 08/04/2024 until 09/03/2025 XR Foot - bilateral AP and Lateral and oblique XR FOOT GENERAL 3V AP/LAT/OBL BILATERAL Radiology Routine Neuroma Hammertoe, bilateral 06/15/2024 4:42 PM EST [facility] Work Phone: XR Pelvis and Hip Views [facility] Immunizations Immunization Date Immunization Notes Care Provider Fa cility 08-26-2024 tetanus toxoid, redu raoul diphtheria toxoid, and acellular pertussis vaccine, adsorbed Krislyn Aberegg PA Work Phone: [facility] 07-06-2024 influenza, injectabl e, madin aron canine kidney, preservative free Krislyn Aberegg PA Work Phone: [facility] 07-10-2021 influenza, injectabl e, quadrivalent, preservative free Krislyn Aberegg PA Work Phone: [facility] 07-10-2021 influenza virus vacc ine, unspecified formulation Shilpi Athy PA-C Work Phone: [facility] 05-02-2020 influenza, injectabl e, quadrivalent, preservative free Johan Bordonaro PA-C Work Phone: [facility] 06-04-2019 influenza, injectabl e, quadrivalent, contains preservative Johan Bordonaro PA-C Work Phone: [facility] 05-21-2018 influenza, injectabl e, quadrivalent, contains preservative Johan Bordonaro PA-C Work Phone: [facility] 05-30-2016 influenza, injectabl e, quadrivalent, preservative free Johan Bordonaro PA-C Work Phone: [facility] 10-17-2015 tetanus toxoid, redu raoul diphtheria toxoid, and acellular pertussis vaccine, adsorbed Johan Bordonaro PA-C Work Phone: [facility] 07-13-2014 influenza, injectabl e, quadrivalent, preservative free Johan Bordonaro PA-C Work Phone: [facility] Payers Date Payer Category Payer Self-pay [id number] 2022 Medicaid [id number] 2022 Medicaid [id number] 2017 Unknown [id number] 1979 Unknown [id number] 2.16.8 40.1.252566.3.579.2.278 1979 Unknown [id number] .16.8 40.1.515947.3.579.2.278 Unknown [id number] Unknown [id number] 2.16.8 40.1.490543.3.579.2.462 Unknown [id number] 2.16.8 40.1.659554.3.579.2.462 Unknown [id number] 2.16.8 40.1.173598.3.579.2.462 Unknown [id number] 2.16.8 40.1.862515.3.579.2.462 Unknown [id number] 2.16.8 40.1.764800.3.579.2.462 Unknown [id number] 2.16.8 40.1.335745.3.579.2.462 Unknown [id number] 2.16.8 40.1.973561.3.579.2.462 Unknown [id number] 2.16.8 40.1.294928.3.579.2.462 Unknown [id number] 2.16.8 40.1.384374.3.579.2.462 Unknown [id number] 2.16.8 40.1.729812.3.579.2.462 Unknown [id number] 2.16.8 40.1.408760.3.579.2.462 Unknown [id number] 2.16.8 40.1.701414.3.579.2.462 Unknown [id number] 2.16.8 40.1.402699.3.579.2.462 Unknown [id number] 2.16.8 40.1.382709.3.579.2.462 Unknown [id number] 2.16.8 40.1.706391.3.579.2.462 Unknown [id number] 2.16.8 40.1.403848.3.579.2.462 Unknown [id number] 2.16.8 40.1.009290.3.579.2.462 Unknown [id number] 2.16.8 40.1.815839.3.579.2.462 Unknown [id number] 2.16.8 40.1.538333.3.579.2.462 Unknown [id number] 2.16.8 40.1.710276.3.579.2.462 Unknown [id number] 2.16.8 40.1.065853.3.579.2.462 Unknown [id number] 2.16.8 40.1.132178.3.579.2.462 Unknown [id number] 2.16.8 40.1.698857.3.579.2.462 Unknown [id number] 2.16.8 40.1.332155.3.579.2.462 Unknown [id number] 2.16.8 40.1.923861.3.579.2.462 Unknown [id number] 2.16.8 40.1.059681.3.579.2.462 Unknown [id number] 2.16.8 40.1.003217.3.579.2.462 Unknown [id number] 2.16.8 40.1.033820.3.579.2.462 Unknown [id number] 2.16.8 40.1.805378.3.579.2.462 Unknown [id number] 2.16.8 40.1.438123.3.579.2.462 Unknown [id number] 2.16.8 40.1.669663.3.579.2.462 Unknown [id number] 2.16.8 40.1.985212.3.579.2.462 Unknown [id number] 2.16.8 40.1.251667.3.579.2.462 Unknown [id number] 2.16.8 40.1.652866.3.579.2.462 Unknown [id number] 2.16.8 40.1.568972.3.579.2.462 Unknown [id number] 2.16.8 40.1.422283.3.579.2.462 Unknown [id number] 2.16.8 40.1.828782.3.579.2.462 Social History Date Type Detail Facility Start: 03-17-2018 End: 08-04-2024 Tobacco smoking status NHIS Ex-smoker [facility] Work Phone: Start: 03-17-1993 End: 03-17-2003 History of tobacco use Current smoker [facility] Work Phone: Start: 03-17-1993 End: 03-17-2003 History of tobacco use Cigarette Smoker [facility] Work Phone: Start: 03-17-2018 End: 06-15-2024 Cigarettes smoked current (pack per day) - Reported 1 [facility] Start: 03-17-2018 End: 08-04-2024 Tobacco use and exposure Smokeless tobacco non-user [facility] Work Phone: Start: 08-19-2021 End: 09-29-2024 Alcohol intake Current drinker of alcohol (finding) [facility] Start: 02-09-2020 History SDOH Alcohol Frequency 5 [facility] Start: 02-09-2020 History SDOH Alcohol Std Drinks 1 [facility] Start: 02-09-2020 History SDOH Social Connections Phone 2 [facility] Start: 02-09-2020 History SDOH Social Connections Get Together 4 [facility] Start: 02-09-2020 History SDOH Social Connections Living 8 [facility] Start: 02-09-2020 History SDOH Physica l Activity DPW 6 [facility] Start: 02-09-2020 History SDOH Physica l Activity MPS 3 [facility] Start: 02-09-2020 Education 12 [facility] Start: 1980 Sex Assigned At Not on file [facility] Start: 02-09-2020 End: 06-15-2024 Social connection and isolation panel [facility] Do you belong to any clubs or organizations such as judaism groups, unions, fraternal or athletic groups, or school groups? No [facility] Are you now , , , , never or living with a partner? Living with partner [facility] How often to you hav e a drink containing alcohol? 4 or more times a week [facility] How many standard dr inks containing alcohol do you have on a typical day? 1 or 2 [facility] How often do you hav e 6 or more drinks on 1 occasion? Never [facility] How hard is it for y ou to pay for the very basics like food, housing, medical care, and heating Somewhat hard [facility] Adult Depression Scr eening Assessment 1 [facility] Do you feel stress - tense, restless, nervous, or anxious, or unable to sleep at night because your mind is troubled all the time - these days [OSQ] Very much [facility] (I/We) worried whejewell er (my/our) food would run out before (I/we) got money to buy more. Never true [facility] Start: 07-12-2023 Tobacco smoking stat us NHIS Unknown if ever smoked [facility] Start: 1980 Sex Assigned At Male W [facility] Clinical Notes 04-08-2022 to 09-29-2024 Veronica Pagan - 09/29/2024 1:21 PM Alisha Huff MA - 09/29/2024 1:15 PM Rocco Bettencourt PA - 08/26/2024 6:49 PM ESTTelephone Encounter - Bryan Lind - 08/04/2024 2:32 PM EST Note Date & Type Note Facility 09-29-2024 Note HNO ID: [id number] Author: VERONICA PAGAN, ? Service: ? Author Type: Physician Type: Progress Notes Filed: 09/29/2024 14:04 Note Text: FOLLOW UP PODIATRIC OFFICE VISIT Chief Complaint: This 44 year old who presents for follow up:left foot pain Patient presents to clinic for follow-up left foot pain Patient has pain to the ball of left foot that has been going on for 1-1.5 years. Has tried ibuprofen and not sure if that helps Has tried over the counter inserts but the inserts make his pain worse. States the pain varies between 4-6 out of 10. Has ultrasound to review PAIN EVALUATION 09/23/2024 0852 09/29/2024 1318 Pain Level: 8 -- 4-6 Pain Location: Foot-Left Foot-Left Description: -- Aching Duration Amount of Time: -- -- Ongoing Frequency: -- Intermittent Intervention/Comfort measure: -- Medication No results found for: HBA1C PCP: Robina Blum MD PAST MEDICAL HISTORY Diagnosis Date [facility] Hyperlipidemia resolved with diet and weight loss Rosacea Scoliosis s/p macey placement age 14 Seasonal allergies Shoulder dislocation 2018 left Current Outpatient Medications Medication Sig escitalopram oxalate (LEXAPRO) 10 mg tablet Take 1 tablet by mouth every afternoon. ammonium lactate (LAC-HYDRIN) 12 % lotion sildenafil (VIAGRA) 25 mg tablet Take 25 mg by mouth once daily as needed. diphenhydrAMINE (BENADRYL) 25 mg tablet Take 25 mg by mouth every 6 hours as needed. ibuprofen (ADVIL) 200 mg tablet Take 200 mg by mouth every 6 hours as needed for pain. sertraline (ZOLOFT) 50 mg tablet Take 50 mg by mouth once daily. (Patient not taking: Reported on 09/29/2024) oxyCODONE IR (ROXICODONE) 5 mg immediate release tablet Take 5 mg by mouth every 6 hours as needed. No current facility-administered medications for this visit. ALLERGIES Allergen Reactions Poison Danielle Extract Rash PAST SURGICAL HISTORY Procedure Laterality Date SCOLIOSIS surgery at age 14 VASECTOMY UNI/BI SPX W/POSTOP SEMEN EXAMS 2018 Physical Exam: OBJECTIVE: Constitutional: Pt is a well developed 44 year old male who is alert, oriented, cooperative and in no apparent distress. Eyes: Following during examination. No redness or drainage. Respiratory: RR normal and nonlabored. Even breathing. No evidence of distress. Psychology: Patient is engaged during conversation. Normal affect and mood. Does not appear depressed or anxious. NVSI unchanged from previous visit. Dermatological: Nails 1-5 b/l are normal. Webspaces clean and dry 1-4 b/l. Skin appears well hydrated and supple. good color, texture, turgor. No open lesions present. No callosities present. Musculoskeletal/Orthopaedic: Patient has pain to palpation of left 2nd metatasral head, plantar lateral aspect No pain to palpation of left 2ndinterspace No nitish click MILD SECOND INTERMETATARSAL PLANTAR NERVE THICKENING WITHOUT ARAUJO'S NEUROMA. MILD INTERMETATARSAL BURSITIS. SECOND MTP LATERAL PLANTAR PLATE TEAR, DETAILED. ASSESSMENT: (W80.450Q) Plantar plate injury, left, sequela (primary encounter diagnosis) PLAN: I had long discussion with patient regarding his pain. He has pain mostly along the plantar lateral aspet of left 2nd mtpj. This I suspect is more related to plantar plate rather than bursitis I discussed options not limited to inserts (which made his pain worse), vs taping vs prp injection vs surgical intervention From a surgical intervention, we discussed direct repair via plantar approach, indirect repair via lynne osteotomy and industry manufactured suture device vs fdl tendon transfer. Patient wishes to hold on surgery for now if possible. Will try taping and I will discuss with sports health regarding prp injection. Discussed possible higher costs associated with prp All questions answered. Patient satisfied with discuss Can follow-up in 4 weeks or so to see how he is doing Veronica Pagan DPM [facility] 09-29-2024 History of Presen t illness Narrative Images from the original note were not included. FOLLOW UP PODIATRIC OFFICE VISIT Chief Complaint: This 44 year old who presents for follow up:left foot pain Patient presents to clinic for follow-up left foot pain Patient has pain to the ball of left foot that has been going on for 1-1.5 years. Has tried ibuprofen and not sure if that helps Has tried over the counter inserts but the inserts make his pain worse. States the pain varies between 4-6 out of 10. Has ultrasound to review PAIN EVALUATION 09/23/2024 0852 09/29/2024 1318 Pain Level: 8 -- 4-6 Pain Location: Foot-Left Foot-Left Description: -- Aching Duration Amount of Time: -- -- Ongoing Frequency: -- Intermittent Intervention/Comfort measure: -- Medication No results found for: HBA1C PCP: Robina Blum MD PAST MEDICAL HISTORY Diagnosis Date [facility] Hyperlipidemia resolved with diet and weight loss Rosacea Scoliosis s/p macey placement age 14 Seasonal allergies Shoulder dislocation 2018 left Current Outpatient Medications Medication Sig escitalopram oxalate (LEXAPRO) 10 mg tablet Take 1 tablet by mouth every afternoon. ammonium lactate (LAC-HYDRIN) 12 % lotion sildenafil (VIAGRA) 25 mg tablet Take 25 mg by mouth once daily as needed. diphenhydrAMINE (BENADRYL) 25 mg tablet Take 25 mg by mouth every 6 hours as needed. ibuprofen (ADVIL) 200 mg tablet Take 200 mg by mouth every 6 hours as needed for pain. sertraline (ZOLOFT) 50 mg tablet Take 50 mg by mouth once daily. (Patient not taking: Reported on 09/29/2024) oxyCODONE IR (ROXICODONE) 5 mg immediate release tablet Take 5 mg by mouth every 6 hours as needed. No current facility-administered medications for this visit. ALLERGIES Allergen Reactions Poison Danielle Extract Rash PAST SURGICAL HISTORY Procedure Laterality Date SCOLIOSIS surgery at age 14 VASECTOMY UNI/BI SPX W/POSTOP SEMEN EXAMS 2017 Physical Exam: OBJECTIVE: Constitutional: Pt is a well developed 44 year old male who is alert, oriented, cooperative and in no apparent distress. Eyes: Following during examination. No redness or drainage. Respiratory: RR normal and nonlabored. Even breathing. No evidence of distress. Psychology: Patient is engaged during conversation. Normal affect and mood. Does not appear depressed or anxious. NVSI unchanged from previous visit. Dermatological: Nails 1-5 b/l are normal. Webspaces clean and dry 1-4 b/l. Skin appears well hydrated and supple. good color, texture, turgor. No open lesions present. No callosities present. Musculoskeletal/Orthopaedic: Patient has pain to palpation of left 2nd metatasral head, plantar lateral aspect No pain to palpation of left 2ndinterspace No niitsh click MILD SECOND INTERMETATARSAL PLANTAR NERVE THICKENING WITHOUT ARAUJO'S NEUROMA. MILD INTERMETATARSAL BURSITIS. SECOND MTP LATERAL PLANTAR PLATE TEAR, DETAILED. ASSESSMENT: ([id number]) Plantar plate injury, left, sequela (primary encounter diagnosis) PLAN: I had long discussion with patient regarding his pain. He has pain mostly along the plantar lateral aspet of left 2nd mtpj. This I suspect is more related to plantar plate rather than bursitis I discussed options not limited to inserts (which made his pain worse), vs taping vs prp injection vs surgical intervention From a surgical intervention, we discussed direct repair via plantar approach, indirect repair via lynne osteotomy and industry manufactured suture device vs fdl tendon transfer. Patient wishes to hold on surgery for now if possible. Will try taping and I will discuss with sports health regarding prp injection. Discussed possible higher costs associated with prp All questions answered. Patient satisfied with discuss Can follow-up in 4 weeks or so to see how he is doing Veronica Pagan DPM Patient presents with: Left Foot - Follow Up: Ultrasound results AMB ROOMING INTAKE FLOWSHEET DATA Pain Pain Level: (4-6) Pain Location: Foot-Left Description: Aching Duration Amount of Time: (Ongoing) Frequency: Intermittent Intervention/Comfort measure: Medication Patient states he is taking Ibuprofen for the pain and is not sure it helps. Here for US results. documented in this encounter [facility] 09-29-2024 Note HNO ID: [id number] Author: ALISHA CORCORAN MA Service: ? Author Type: Senior Program Planner Type: Progress Notes Filed: 09/29/2024 14:04 Note Text: Patient presents with: Left Foot - Follow Up: Ultrasound results AMB ROOMING INTAKE FLOWSHEET DATA Pain Pain Level: (4-6) Pain Location: Foot-Left Description: Aching Duration Amount of Time: (Ongoing) Frequency: Intermittent Intervention/Comfort measure: Medication Patient states he is taking Ibuprofen for the pain and is not sure it helps. Here for US results. [facility] 09-15-2024 Note [facility] Medical Records Department [address] [place] [address] History Physical Exam 09/15/24 1249 MR#: [id number] Acct: [id number] Name: RAIMUNDO SCHROEDER Rep #: [id number] : 1980 44 From: Shaheed Hays DO PCP: Dr. Nic Samuels MD Status:[facility] Location: [place] [address] HPI - General General Date of Admission: 09/15/24 Date of Service: 09/15/24 Chief Complaint: Screening colonoscopy HPI Narrative RAIMUNDO SCHROEDER, is a 44 M who presents today for screening colonoscopy. He is never had a colonoscopy in the past. He is not have any problems at this time. He does not take any medicines on a daily basis except for Celexa. [facility] Medical History Arthritis High cholesterol Heartburn History of closed shoulder dislocation Loss of hearing Depression Anxiety Marijuana use Alcohol use Restless legs Back pain History of pain when walking Former smoker Anal or rectal pain Colon cancer screening Preventative health care Right groin pain Bilateral carpal tunnel syndrome Scoliosis Seasonal allergies Home Medications ???Medication ???Instructions ???Recorded ???Last Taken ???Type ibuprofen 200 mg tablet (Advil) 400 mg PO Q8H PRN pain 07/13/24 History sildenafil 25 mg tablet (Viagra) 25 mg PO QDAY PRN sexual activity 08/26/24 09/10/24 Rx #30 tabs escitalopram oxalate 10 mg tablet 10 mg PO QDAY #30 tabs 09/03/24 0 09/13/24 Rx Allergy/AdvReac Type Severity Reaction Status Date / Time poison danielle extract Allergy Severe Rash Verified 09/15/24 11:49 Surgical History History of carpal tunnel repair H/O Spinal surgery History of vasectomy Social History adopted: No household members: significant other number of children: 1 current occupational status: employed 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 pets and animals: Yes pets and animals: cat(s), dog(s) and fish sexually active: Yes Smoking Status: Former smoker quit date: 08/04/08 Tobacco: How many years used: 10 alcohol intake: current alcohol intake frequency: a few times a week Alcohol type: beer, wine and hard liquor substance use type: marijuana caffeine: Yes (2-3) Type: coffee what type of physical activity do you participate in: weight training and other details: LABOR frequency: 3-4 times per week seatbelt use: always do you feel safe at home: Yes ROS Constitutional Constitutional: Denies fatigue, fever(s), poor appetite, weight gain or weight loss Gastrointestinal Gastrointestinal: Denies belching, bloating, change in bowel habits, change in stool character, chewing difficulty, coffee ground emesis, constipation, cramping, diarrhea, dyspepsia, dysphagia, early satiety, excessive flatus, fecal incontinence, heartburn, hematemesis, hematochezia, hemorrhoids, loose stools, melena, nausea, odynophagia, rectal bleeding, tenesmus, vomiting or weight changes Vital Signs Vital Signs Vital Signs: 09/15/24 11:51 09/15/24 11:51 09/15/24 12:34 Temperature 97.7 F L 97.7 F L Temperature Source Temporal Pulse Rate 62 62 Respiratory Rate 16 16 Respiratory Pattern Normal Blood Pressure 137/84 H 137/84 H Blood Pressure Mean 101 Blood Pressure Source Monitor Blood Pressure Position Sitting Blood Pressure Location Right Arm Pulse Ox 100 100 Oxygen Delivery Method Room Air Room Air Weight Weight: 202 lb 13.204 oz Body Mass Index (BMI) 27.5 Physical Exam Const alert, oriented x3, no apparent distress and healthy appearing General Appearance: cooperative GI normal to inspection, nondistended, normoactive bowel sounds, soft to palpation, non-tender and non- distended Percussion: normal to percussion Rectal Exam: deferred Assessment Plan Assessment/Plan (1) Colon cancer screening: PLAN: He was explained alternatives, benefits, risk including not withstanding bleeding, infection, sepsis, perforation, need for emergent urgent . He will have an ASA of 3. 09/15/24 1251 Cosigner Signature (if applicable): CC: Dr. Nic Samuels MD; Shaheed Friend, Signed [facility] 08-26-2024 Note HNO ID: [id number] Author: ROCCO ROSE PA Service: ? Author Type: Physician Guide Setter Type: Progress Notes Filed: 08/27/2024 07:08 Note Text: This note was created using NoteWriter. Subjective Raimundo Schroeder is a 44 year old male. HPI 44-year-old male presents for left knee puncture wound. Patient states that today he was carrying on a cabinet and went to lean the piece of the cabinet on his knee and a nail punctured the top of his left knee. It bled a small amount. He states that the nail was intact when he pulled it out. He is unsure how deep it went. He states his last tetanus was in 2016, so came in for tetanus booster. Patient denies any numbness or tingling in the leg. Still able to ambulate. No purulent drainage from the area. He has not on any blood thinners. No history of diabetes. No other complaint. PAST MEDICAL HISTORY Diagnosis Date Genital herpes 2017 [place] Hyperlipidemia resolved with diet and weight loss Rosacea Scoliosis s/p macey placement age 14 Seasonal allergies Shoulder dislocation 2018 left PAST SURGICAL HISTORY Procedure Laterality Date SCOLIOSIS surgery at age 14 VASECTOMY UNI/BI SPX W/POSTOP SEMEN EXAMS 2018 ALLERGIES Poison Danielle Extract MEDICATIONS ammonium lactate (LAC-HYDRIN) 12 % lotion cephALEXin (KEFLEX) 500 mg capsule Take 1 capsule by mouth four times daily for 5 days. mupirocin (BACTROBAN) 2 % ointment Apply to affected area three times a day for 7 days. sertraline (ZOLOFT) 50 mg tablet Take 50 mg by mouth once daily. sildenafil (VIAGRA) 25 mg tablet Take 25 mg by mouth once daily as needed. oxyCODONE IR (ROXICODONE) 5 mg immediate release tablet Take 5 mg by mouth every 6 hours as needed. diphenhydrAMINE (BENADRYL) 25 mg tablet Take 25 mg by mouth every 6 hours as needed. ibuprofen (ADVIL) 200 mg tablet Take 200 mg by mouth every 6 hours as needed for pain. FAMILY HISTORY Problem Relation Age of Onset Hyperlipidemia Father other (brain tumor) Paternal Uncle Social History Tobacco Use Smoking status: Former Current packs/day: 0.00 Average packs/day: 1 pack/day for 10.0 years (10.0 ttl pk-yrs) Types: Cigarettes Start date: 03/17/1993 Quit date: 03/17/2003 Years since quittin.4 Smokeless tobacco: Never Vaping Use Vaping status: Never Used Substance Use Topics Alcohol use: Yes Alcohol/week: 18.2 standard drinks of alcohol Types: 14 Mixed Drinks per week Drug use: Yes Types: Marijuana Review of Systems Constitutional: Negative for chills and fever. HENT: Negative for congestion and sore throat. Respiratory: Negative for cough and shortness of breath. Gastrointestinal: Negative for diarrhea and vomiting. Skin: Positive for wound. Objective BP 136/90 Pulse 64 Temp 36.3 ?C (97.4 ?F) Resp 18 Wt 95.8 kg (211 lb 3.2 oz) SpO2 98% BMI 29.05 kg/m? Physical Exam Vitals and nursing note reviewed. Constitutional: General: He is not in acute distress. Appearance: Normal appearance. He is not toxic-appearing. Musculoskeletal: Left knee: Laceration (Puncture wound just superior to left patella.) present. No bony tenderness. Normal range of motion. No tenderness. Legs: Comments: Puncture wound just superior to left patella. No swelling. No deformity. Normal flexion extension left knee. No erythema, warmth or knee effusion present. No foreign body seen. Skin: General: Skin is warm and dry. Neurological: Mental Status: He is alert. Assessment and Plan ASSESSMENT/PLAN: 1. Puncture wound - ICD9: 879.8, ICD10: T14.8XXA (primary diagnosis) -Puncture wound of left knee. Patient states nail was intact that punctured him. No foreign body seen on exam. -Wound cleansed, bacitracin ointment and bandage applied. -Discussed with patient prophylactic antibiotics since it is a puncture wound. Patient prefers not to be on antibiotic. I did send in Rx for Keflex. If the area starts to red and at all, patient advised to start this. He is agreeable. -If any purulent drainage, lymphatic streaking, needs to be seen in ER. -Rx for mupirocin ointment. Did advise to start this today. Keep the area clean and dry 2. Need for tetanus, diphtheria, and acellular pertussis (Tdap) vaccine - ICD9: V06.1, ICD10: Z23 -Last tetanus 2016 -Adacel vaccination given Diagnosis and treatment plan were discussed and questions were answered to the patient's satisfaction. Pt acknowledged understanding of concepts and follow up plan. Specific signs and symptoms that would indicate the need for higher level of care were discussed in detail warranting prompt ER evaluation. TISH Garcia [facility] 08-26-2024 History of Presen t illness Narrative Images from the original note were not included. This note was created using NoteWriter. Subjective Raimundo Schroeder is a 44 year old male. HPI 44-year-old male presents for left knee puncture wound. Patient states that today he was carrying on a cabinet and went to lean the piece of the cabinet on his knee and a nail punctured the top of his left knee. It bled a small amount. He states that the nail was intact when he pulled it out. He is unsure how deep it went. He states his last tetanus was in 2016, so came in for tetanus booster. Patient denies any numbness or tingling in the leg. Still able to ambulate. No purulent drainage from the area. He has not on any blood thinners. No history of diabetes. No other complaint. PAST MEDICAL HISTORY Diagnosis Date Genital herpes 2017 [place] Hyperlipidemia resolved with diet and weight loss Rosacea Scoliosis s/p macey placement age 14 Seasonal allergies Shoulder dislocation 2018 left PAST SURGICAL HISTORY Procedure Laterality Date SCOLIOSIS surgery at age 14 VASECTOMY UNI/BI SPX W/POSTOP SEMEN EXAMS 2018 ALLERGIES Poison Danielle Extract MEDICATIONS ammonium lactate (LAC-HYDRIN) 12 % lotion cephALEXin (KEFLEX) 500 mg capsule Take 1 capsule by mouth four times daily for 5 days. mupirocin (BACTROBAN) 2 % ointment Apply to affected area three times a day for 7 days. sertraline (ZOLOFT) 50 mg tablet Take 50 mg by mouth once daily. sildenafil (VIAGRA) 25 mg tablet Take 25 mg by mouth once daily as needed. oxyCODONE IR (ROXICODONE) 5 mg immediate release tablet Take 5 mg by mouth every 6 hours as needed. diphenhydrAMINE (BENADRYL) 25 mg tablet Take 25 mg by mouth every 6 hours as needed. ibuprofen (ADVIL) 200 mg tablet Take 200 mg by mouth every 6 hours as needed for pain. FAMILY HISTORY Problem Relation Age of Onset Hyperlipidemia Father other (brain tumor) Paternal Uncle Social History Tobacco Use Smoking status: Former Current packs/day: 0.00 Average packs/day: 1 pack/day for 10.0 years (10.0 ttl pk-yrs) Types: Cigarettes Start date: 03/17/1993 Quit date: 03/17/2003 Years since quittin.4 Smokeless tobacco: Never Vaping Use Vaping status: Never Used Substance Use Topics Alcohol use: Yes Alcohol/week: 18.2 standard drinks of alcohol Types: 14 Mixed Drinks per week Drug use: Yes Types: Marijuana Review of Systems Constitutional: Negative for chills and fever. HENT: Negative for congestion and sore throat. Respiratory: Negative for cough and shortness of breath. Gastrointestinal: Negative for diarrhea and vomiting. Skin: Positive for wound. Objective BP 136/90 Pulse 64 Temp 36.3 C (97.4 F) Resp 18 Wt 95.8 kg (211 lb 3.2 oz) SpO2 98% BMI 29.05 kg/m Physical Exam Vitals and nursing note reviewed. Constitutional: General: He is not in acute distress. Appearance: Normal appearance. He is not toxic-appearing. Musculoskeletal: Left knee: Laceration (Puncture wound just superior to left patella.) present. No bony tenderness. Normal range of motion. No tenderness. Legs: Comments: Puncture wound just superior to left patella. No swelling. No deformity. Normal flexion extension left knee. No erythema, warmth or knee effusion present. No foreign body seen. Skin: General: Skin is warm and dry. Neurological: Mental Status: He is alert. Assessment and Plan ASSESSMENT/PLAN: 1. Puncture wound - ICD9: 879.8, ICD10: T14.8XXA (primary diagnosis) -Puncture wound of left knee. Patient states nail was intact that punctured him. No foreign body seen on exam. -Wound cleansed, bacitracin ointment and bandage applied. -Discussed with patient prophylactic antibiotics since it is a puncture wound. Patient prefers not to be on antibiotic. I did send in Rx for Keflex. If the area starts to red and at all, patient advised to start this. He is agreeable. -If any purulent drainage, lymphatic streaking, needs to be seen in ER. -Rx for mupirocin ointment. Did advise to start this today. Keep the area clean and dry 2. Need for tetanus, diphtheria, and acellular pertussis (Tdap) vaccine - ICD9: V06.1, ICD10: Z23 -Last tetanus 2015 -Adacel vaccination given Diagnosis and treatment plan were discussed and questions were answered to the patient's satisfaction. Pt acknowledged understanding of concepts and follow up plan. Specific signs and symptoms that would indicate the need for higher level of care were discussed in detail warranting prompt ER evaluation. TISH Garcia documented in this encounter [facility] 08-04-2024 Telephone encounter Note PT scheduled for MSK US on 09/01/24 at 3:45 PM at Sports. [facility] 08-04-2024 Miscellaneous Notes PT scheduled for MSK US on 09/01/24 at 3:45 PM at Sports. Visit Type: ANY MSK Visit Length: 45, 50 OR 60 MINUTES Order Name/Protocol: US FOOT LT; ARAUJO'S NEUROMA-EVAL LT 2ND IMS Preferred Provider: N/A Comment: Please ask if the patient has ever had any prior surgery to their LT second toe. If so, upgrade the visit type to an MSK1 and notate the surgical hx in the Appointment Note. Location: Depending on the surgical hx, this patient can have this exam performed at any of our three locations. Slot held: N/A documented in this encounter [facility] 08-04-2024 Telephone encounter Note Visit Type: ANY MSK Visit Length: 45, 50 OR 60 MINUTES Order Name/Protocol: US FOOT LT; ARAUJO'S NEUROMA-EVAL LT 2ND IMS Preferred Provider: N/A Comment: Please ask if the patient has ever had any prior surgery to their LT second toe. If so, upgrade the visit type to an MSK1 and notate the surgical hx in the Appointment Note. Location: Depending on the surgical hx, this patient can have this exam performed at any of our three locations. Slot held: N/A [facility] 08-04-2024 Note HNO ID: [id number] Author: VERONICA PAGAN, ? Service: ? Author Type: Physician Type: Progress Notes Filed: 08/09/2024 08:09 Note Text: FOLLOW UP PODIATRIC OFFICE VISIT Chief Complaint: This 44 year old who presents for follow up:left foot pain Patient presents to clinic for follow-up left foot pain. Continues to have on/off to the left forefoot. Pain is worse with activity. Patient has tried insoles but the insoles did not make a difference. If anything, the insoles made his pain worse He is here to discuss options. PAIN EVALUATION 08/03/2024 0839 Pain Level: 5 Pain Location: Foot-Left Description: Burning;Dull;Sharp;Throbbing Duration Units: Hours Frequency: Intermittent No results found for: HBA1C PCP: Robina Blum MD PAST MEDICAL HISTORY Diagnosis Date Genital herpes 2017 [place] Hyperlipidemia resolved with diet and weight loss Rosacea Scoliosis s/p macey placement age 14 Seasonal allergies Shoulder dislocation 2018 left Current Outpatient Medications Medication Sig sertraline (ZOLOFT) 50 mg tablet Take 50 mg by mouth once daily. sildenafil (VIAGRA) 25 mg tablet Take 25 mg by mouth once daily as needed. oxyCODONE IR (ROXICODONE) 5 mg immediate release tablet Take 5 mg by mouth every 6 hours as needed. diphenhydrAMINE (BENADRYL) 25 mg tablet Take 25 mg by mouth every 6 hours as needed. ibuprofen (ADVIL) 200 mg tablet Take 200 mg by mouth every 6 hours as needed for pain. No current facility-administered medications for this visit. ALLERGIES No Known Allergies PAST SURGICAL HISTORY Procedure Laterality Date SCOLIOSIS surgery at age 14 VASECTOMY UNI/BI SPX W/POSTOP SEMEN EXAMS 2018 Physical Exam: OBJECTIVE: Constitutional: Pt is a well developed 44 year old male who is alert, oriented, cooperative and in no apparent distress. Eyes: Following during examination. No redness or drainage. Respiratory: RR normal and nonlabored. Even breathing. No evidence of distress. Psychology: Patient is engaged during conversation. Normal affect and mood. Does not appear depressed or anxious. NVSI unchanged from previous visit. Dermatological: Nails 1-5 b/l are normal. Webspaces clean and dry 1-4 b/l. Skin appears well hydrated and supple. good color, texture, turgor. No open lesions present. No callosities present. Musculoskeletal/Orthopaedic: Patient has pain to palpation of left forefoot ASSESSMENT: (D36.10) Neuroma (primary encounter diagnosis) PLAN: Discussed ongoing pain in left foot. Has tried inserts but continues to have pain. Suspect component of neuroma. Discuss other etiologies not limited to bursitis vs capsulitis vs plantar plate attenuation. Will order ultrasound. Will discuss results thereafter. Veronica Pagan DPM [facility] 08-04-2024 History of Presen t illness Narrative Images from the original note were not included. FOLLOW UP PODIATRIC OFFICE VISIT Chief Complaint: This 44 year old who presents for follow up:left foot pain Patient presents to clinic for follow-up left foot pain. Continues to have on/off to the left forefoot. Pain is worse with activity. Patient has tried insoles but the insoles did not make a difference. If anything, the insoles made his pain worse He is here to discuss options. PAIN EVALUATION 08/03/2024 0839 Pain Level: 5 Pain Location: Foot-Left Description: Burning;Dull;Sharp;Throbbing Duration Units: Hours Frequency: Intermittent No results found for: HBA1C PCP: Robina Blum MD PAST MEDICAL HISTORY Diagnosis Date Genital herpes 2017 [facility] Hyperlipidemia resolved with diet and weight loss Rosacea Scoliosis s/p macey placement age 14 Seasonal allergies Shoulder dislocation 2018 left Current Outpatient Medications Medication Sig sertraline (ZOLOFT) 50 mg tablet Take 50 mg by mouth once daily. sildenafil (VIAGRA) 25 mg tablet Take 25 mg by mouth once daily as needed. oxyCODONE IR (ROXICODONE) 5 mg immediate release tablet Take 5 mg by mouth every 6 hours as needed. diphenhydrAMINE (BENADRYL) 25 mg tablet Take 25 mg by mouth every 6 hours as needed. ibuprofen (ADVIL) 200 mg tablet Take 200 mg by mouth every 6 hours as needed for pain. No current facility-administered medications for this visit. ALLERGIES No Known Allergies PAST SURGICAL HISTORY Procedure Laterality Date SCOLIOSIS surgery at age 14 VASECTOMY UNI/BI SPX W/POSTOP SEMEN EXAMS 2018 Physical Exam: OBJECTIVE: Constitutional: Pt is a well developed 44 year old male who is alert, oriented, cooperative and in no apparent distress. Eyes: Following during examination. No redness or drainage. Respiratory: RR normal and nonlabored. Even breathing. No evidence of distress. Psychology: Patient is engaged during conversation. Normal affect and mood. Does not appear depressed or anxious. NVSI unchanged from previous visit. Dermatological: Nails 1-5 b/l are normal. Webspaces clean and dry 1-4 b/l. Skin appears well hydrated and supple. good color, texture, turgor. No open lesions present. No callosities present. Musculoskeletal/Orthopaedic: Patient has pain to palpation of left forefoot ASSESSMENT: (D36.10) Neuroma (primary encounter diagnosis) PLAN: Discussed ongoing pain in left foot. Has tried inserts but continues to have pain. Suspect component of neuroma. Discuss other etiologies not limited to bursitis vs capsulitis vs plantar plate attenuation. Will order ultrasound. Will discuss results thereafter. Veronica Pagan DPM documented in this encounter [facility] 07-21-2024 Note [facility] Medical Records Department [address] [place] [address] History Physical Exam 07/21/24 1100 MR#: [id number] Acct: [id number] Name: RAIMUNDO SCHROEDER Rep #: [id number] : 1980 44 From: Abdiel Douglas DO PCP: Dr. Nic Samuels MD [place] [place] [facility] History and Physical Date of Admission: 07/21/24 [facility] [address] [place] [address] OFFICE VISIT Date of Service: 06/15/24 MR#: [id number] Acct: [id number] Patient: RAIMUNDO SCHROEDER R Rep #: [id number] : 1980 Provider: Dr. Abdiel Douglas DO Age/Sex: 44/M Location: [place] Status: Signed Intake Vital Signs 02/05/2412:26 Height 6 ft Weight: 209 lb 8 oz BMI 28.4 BP 124/80 H Blood Pressure Location Lt brachial Position Sitting Respiration 16 Pulse 67 Pulse Source Monitor Temp 97.6 F L Temp Source Temporal Pulse Oximetry (%) 97 Oxygen Delivery Method room air Intake Visit Reasons: right wrist Is patient in pain?: Yes Allergies poison danielle extract Allergy (Severe, Verified 06/15/24 09:42) Rash Medications ???Medication ???Instructions ???Recorded ???Confirmed ???Type tadalafil 5 mg tablet 5 mg PO DAILY PRN sexual activity 02/05/24 06/15/24 Rx #12 tabs PFSH Medical History Anal or rectal pain Colon cancer screening Preventative health care Right groin pain Bilateral carpal tunnel syndrome Scoliosis Seasonal allergies Surgical History History of vasectomy Social History Smoking Status: Former smoker quit date: 08/04/08 alcohol intake: current alcohol intake frequency: a few times a week Alcohol type: beer, wine and hard liquor substance use type: does not use what type of physical activity do you participate in: weight training and other details: LABOR frequency: 3-4 times per week seatbelt use: always do you feel safe at home: Yes HPI HPI Details: Patient was informed that today's visit charges, even if billed to insurance may still be the patient's responsibility to pay. RAIMUNDO SCHROEDER, is a 44 M who presents to the office today via telephone: Patient would like to proceed with open carpal tunnel release symptoms have not improved he is actually having quite a bit of pain in his right wrist after the injection , that he has not experienced in the past, that has not improved he denies any redness fevers or chills. 06/05/[address] Carmona: here today for bilateral carpal tunnel syndrome. The patient has had now [address] Douglas. Last time was in January. had it prior in the right, it worked but wore off. wants to try injection on both sides. has to pain houses. RHD. all fingers go numb, mostly at night wakes up at night. everything tingly. positive flick sign. feels clumsy. Patient received bilateral carpal tunnel injections and was scheduled for a endoscopic carpal tunnel release. 01/29/2024 office visit: 44 year old M here today for bilateral hand complaints Last office visit August 28, 2023 patient was having carpal tunnel symptoms he did have an EMG which demonstrated bilateral carpal tunnel mild. At that time he had already tried 3 months of bracing at night we discussed nerve glide exercises anti-inflammatories injections or carpal tunnel release, he wished to proceed with ibuprofen 600 mg 3 times daily and nerve glide exercises at that time. Patient is here today requesting BL hand injections. 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 He states that the pain has started to wake him up at night along with he has noticed more numbness and tingling. He states that his right hand is worse. Exam Details: Details:: Exam was limited due to phone visit with no video. 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 Wrist benefits of surgery were reviewed including risk of bleeding infection nerve artery tissue damage (more content not included)... [facility] 06-29-2024 Telephone encounter Note Follow up appointment [facility] 06-29-2024 Miscellaneous Notes Follow up appointment documented in this encounter [facility] 06-15-2024 Instructions Veronica Pagan - 06/15/2024 4:07 PM EST Powerstep Original Full length. Can purchase at [employer] and boots,shoes and more here in [place], [employer] in [place] or [place]. Also can find in [place] in [facility]. Powersteps can also be purchased online, starting around $45.00 If you have a metatarsal or dancer pad for your feet apply the pad directly to the insole so you can interchange between your shoes. Find a shoe with a removable insole and take this out and replace with your powerstep insole. Always bring powersteps with you when shopping for shoes so that you can make sure that everything fits well together documented in this encounter [facility] 06-15-2024 Note HNO ID: [id number] Author: VERONICA PAGAN, ? Service: ? Author Type: Physician Type: Progress Notes Filed: 06/22/2024 10:00 Note Text: Initial Podiatric Office Visit: Chief Complaint: This 44 year old male who presents with chief complaint:left foot pain HPI Pateint presents to clinic for evaluation of left foot Complains of pain to the ball of left foot, primarily between the left 2nd and 3rd toes Feels a constant dull throbbing pain but can become more severe with standing. Pain is more severe when walking barefoot Patient has tried tylenol and nsaids but nothing seems to help. PAIN EVALUATION 06/10/2024 0848 06/15/2024 1550 Pain Level: -- 5 Has been up to 7/10 Pain Location: Foot-Left -- Description: Aching;Burning;Shooting -- Duration Amount of Time: 18 -- Duration Units: Months -- Frequency: Intermittent -- No results found for: HBA1C PCP: Robina Blum MD PAST MEDICAL HISTORY Diagnosis Date Genital herpes 2017 [facility] Hyperlipidemia resolved with diet and weight loss Rosacea Scoliosis s/p macey placement age 14 Seasonal allergies Shoulder dislocation 2018 left Current Outpatient Medications Medication Sig ibuprofen (ADVIL) 200 mg tablet Take 200 mg by mouth every 6 hours as needed for pain. No current facility-administered medications for this visit. ALLERGIES No Known Allergies PAST SURGICAL HISTORY Procedure Laterality Date SCOLIOSIS surgery at age 14 VASECTOMY UNI/BI SPX W/POSTOP SEMEN EXAMS 2018 FAMILY HISTORY Problem Relation Age of Onset Hyperlipidemia Father other (brain tumor) Paternal Uncle Social History Tobacco Use Smoking status: Former Current packs/day: 0.00 Average packs/day: 1 pack/day for 10.0 years (10.0 ttl pk-yrs) Types: Cigarettes Start date: 03/17/1993 Quit date: 03/17/2003 Years since quittin.2 Smokeless tobacco: Never Vaping Use Vaping status: Never Used Substance Use Topics Alcohol use: Yes Alcohol/week: 18.2 standard drinks of alcohol Types: 14 Mixed Drinks per week Drug use: Yes Types: Marijuana REVIEW OF SYSTEMS GENERAL: Negative for Malaise, significant weight loss, fever RESPIRATORY: Negative for cough, wheezing and shortness of breath CARDIOVASCULAR: Negative for chest pain, leg swelling and palpitations GI: Negative for abdominal discomfort, blood in stools or black stools and change in bowel habits : Negative for dysuria, frequency and incontinence MUSCULOSKELETAL: Negative for joint pain or swelling, back pain, and muscle pain. SKIN: Negative for lesions, rash, and itching. HEMATOLOGY/LYMPHOLOGY Negative for prolonged bleeding, bruising easily, and swollen nodes. ENDOCRINE: Negative for cold or heat intolerance, polyuria, polydipsia and goiter. NEURO: negative Physical Exam: Constitutional: Pt is a well developed 44 year old male who is alert, oriented and cooperative Eyes: Following during examination. No redness or drainage. Respiratory: RR normal and nonlabored. Even breathing. No evidence of distress or shortness of breath. Psychology: Patient is engaged during conversation. Normal affect and mood. Does not appear depressed or anxious during encounter. Vascular: Dorsalis pedis and posterior tibial pulses palpable as b/l Capillary Fill time < 5 seconds to digits 1-5 b/l Skin temperature warm to warm proximal to distal b/l Hair growth present to digits Neurological: intact light touch/epicritic sensation b/l intact protective sensation no significant neurological deficits Dermatological: Nails 1-5 b/l appear normal. Webspaces clean and dry 1-4 b/l. Skin appears well hydrated and supple. good color, texture, turgor. No open lesions present. No callosities present. Musculoskeletal/Orthopaedic: Patient has pain to palpation of left 2nd interspace Foot type is neutral structurally Hammertoe of left 2nd toe AJ ROM is full with knee extended and flexed 1st MPJ is full when loaded and no pain or crepitus are noted with ROM. MTJ, STJ are full and free of pain and crepitus. +5/5 muscle strength dorsiflexion, plantarflexion, inversion, eversion b/l Radiographs: ordered ASSESSMENT: (D36.10) Neuroma (primary encounter diagnosis) (M20.41, M20.42) Hammertoe, bilateral PLAN: 1. History and physical examination performed. 2. Discussed pain in left foot, specifically pain between 2nd and 3rd toes. Discussed differential not limited to neuroma, capsulitis, bursitis. 3. Will order xrays 4. Will try powerstep inserts 5. If pain fails to improve, could consider injection Veronica Pagan DPM Podiatry [address] [facility] [address] Dept: [phone] [facility] 06-15-2024 History of Presen t illness Narrative Images from the original note were not included. Initial Podiatric Office Visit: Chief Complaint: This 44 year old male who presents with chief complaint:left foot pain HPI Pateint presents to clinic for evaluation of left foot Complains of pain to the ball of left foot, primarily between the left 2nd and 3rd toes Feels a constant dull throbbing pain but can become more severe with standing. Pain is more severe when walking barefoot Patient has tried tylenol and nsaids but nothing seems to help. PAIN EVALUATION 06/10/2024 0848 06/15/2024 1550 Pain Level: -- 5 Has been up to 7/10 Pain Location: Foot-Left -- Description: Aching;Burning;Shooting -- Duration Amount of Time: 18 -- Duration Units: Months -- Frequency: Intermittent -- No results found for: HBA1C PCP: Robina Blum MD PAST MEDICAL HISTORY Diagnosis Date Genital herpes 2017 [facility] Hyperlipidemia resolved with diet and weight loss Rosacea Scoliosis s/p macey placement age 14 Seasonal allergies Shoulder dislocation 2018 left Current Outpatient Medications Medication Sig ibuprofen (ADVIL) 200 mg tablet Take 200 mg by mouth every 6 hours as needed for pain. No current facility-administered medications for this visit. ALLERGIES No Known Allergies PAST SURGICAL HISTORY Procedure Laterality Date SCOLIOSIS surgery at age 14 VASECTOMY UNI/BI SPX W/POSTOP SEMEN EXAMS 2018 FAMILY HISTORY Problem Relation Age of Onset Hyperlipidemia Father other (brain tumor) Paternal Uncle Social History Tobacco Use Smoking status: Former Current packs/day: 0.00 Average packs/day: 1 pack/day for 10.0 years (10.0 ttl pk-yrs) Types: Cigarettes Start date: 03/17/1993 Quit date: 03/17/2003 Years since quittin.2 Smokeless tobacco: Never Vaping Use Vaping status: Never Used Substance Use Topics Alcohol use: Yes Alcohol/week: 18.2 standard drinks of alcohol Types: 14 Mixed Drinks per week Drug use: Yes Types: Marijuana REVIEW OF SYSTEMS GENERAL: Negative for Malaise, significant weight loss, fever RESPIRATORY: Negative for cough, wheezing and shortness of breath CARDIOVASCULAR: Negative for chest pain, leg swelling and palpitations GI: Negative for abdominal discomfort, blood in stools or black stools and change in bowel habits : Negative for dysuria, frequency and incontinence MUSCULOSKELETAL: Negative for joint pain or swelling, back pain, and muscle pain. SKIN: Negative for lesions, rash, and itching. HEMATOLOGY/LYMPHOLOGY Negative for prolonged bleeding, bruising easily, and swollen nodes. ENDOCRINE: Negative for cold or heat intolerance, polyuria, polydipsia and goiter. NEURO: negative Physical Exam: Constitutional: Pt is a well developed 44 year old male who is alert, oriented and cooperative Eyes: Following during examination. No redness or drainage. Respiratory: RR normal and nonlabored. Even breathing. No evidence of distress or shortness of breath. Psychology: Patient is engaged during conversation. Normal affect and mood. Does not appear depressed or anxious during encounter. Vascular: Dorsalis pedis and posterior tibial pulses palpable as b/l Capillary Fill time < 5 seconds to digits 1-5 b/l Skin temperature warm to warm proximal to distal b/l Hair growth present to digits Neurological: intact light touch/epicritic sensation b/l intact protective sensation no significant neurological deficits Dermatological: Nails 1-5 b/l appear normal. Webspaces clean and dry 1-4 b/l. Skin appears well hydrated and supple. good color, texture, turgor. No open lesions present. No callosities present. Musculoskeletal/Orthopaedic: Patient has pain to palpation of left 2nd interspace Foot type is neutral structurally Hammertoe of left 2nd toe AJ ROM is full with knee extended and flexed 1st MPJ is full when loaded and no pain or crepitus are noted with ROM. MTJ, STJ are full and free of pain and crepitus. +5/5 muscle strength dorsiflexion, plantarflexion, inversion, eversion b/l Radiographs: ordered ASSESSMENT: (D36.10) Neuroma (primary encounter diagnosis) (M20.41, M20.42) Bharathiertohien, bilateral PLAN: 1. History and physical examination performed. 2. Discussed pain in left foot, specifically pain between 2nd and 3rd toes. Discussed differential not limited to neuroma, capsulitis, bursitis. 3. Will order xrays 4. Will try powerstep inserts 5. If pain fails to improve, could consider injection Veronica Pagan DPM Podiatry [address] [facility] [address] Dept: [phone] Dept AMB ROOMING INTAKE FLOWSHEET DATA Pain Pain Level: 5 (Has been up to 710) Pain Location: Foot-Left Description: Aching, Burning, Shooting Duration Amount of Time: 18 Duration Units: Months Frequency: Intermittent Patient presents with: Left Foot - New, Pain, Burning Feet Patient presents for left foot nerve pain that has been intermittent for about a year and a half. Burning pain between 2nd and 3rd metatarsals. States that it comes and goes. Had pain/tenderness to tips of toes that was there for months, but has somewhat resolved. documented in this encounter [facility] 06-15-2024 Note HNO ID: [id number] Author: LYNDSEY FLORES RN Service: ? Author Type: Registered Nurse Type: Progress Notes Filed: 06/22/2024 10:00 Note Text: AMB ROOMING INTAKE FLOWSHEET DATA Pain Pain Level: 5 (Has been up to 7/10) Pain Location: Foot-Left Description: Aching, Burning, Shooting Duration Amount of Time: 18 Duration Units: Months Frequency: Intermittent Patient presents with: Left Foot - New, Pain, Burning Feet Patient presents for left foot nerve pain that has been intermittent for about a year and a half. Burning pain between 2nd and 3rd metatarsals. States that it comes and goes. Had pain/tenderness to tips of toes that was there for months, but has somewhat resolved. [facility] 07-25-2023 Procedure note Charles carlos [facility] 06-24-2023 History of Presen t illness Narrative This note was created using [employer]. Subjective Raimundo Schroeder is a 43 year old male. HPI Patient presents with a chief complaint of sinus pressure congestion and cough over the past 5 days. He does have a history of allergies. He has used multiple hlea-wxd-hyjffjy medications including Sudafed and Mucinex. He states his ears have plugged as well. His child was sick the week before. He did do a home COVID test which was negative. He has had fatigue and body aches. No chest pain. Review of Systems Constitutional: Positive for chills and fatigue. HENT: Positive for congestion, ear pain and rhinorrhea. Respiratory: Positive for cough. Negative for shortness of breath and wheezing. Cardiovascular: Negative. Gastrointestinal: Negative. Genitourinary: Negative. Musculoskeletal: Negative. All other systems reviewed and are negative. PAST MEDICAL HISTORY Diagnosis Date Genital herpes 2017 [place] Hyperlipidemia resolved with diet and weight loss Rosacea Scoliosis s/p macey placement age 14 Seasonal allergies Shoulder dislocation 2018 left Current Outpatient Medications Medication Sig Dispense Refill predniSONE (DELTASONE) 20 mg tablet Take 2 tablets by mouth once daily for 5 days. 10 tablet 0 amoxicillin-clavulanate potassium (AUGMENTIN) 875-125 mg per tablet Take 1 tablet by mouth two times a day for 7 days. 14 tablet 0 No current facility-administered medications for this visit. PAST SURGICAL HISTORY Procedure Laterality Date SCOLIOSIS surgery at age 14 VASECTOMY UNI/BI SPX W/POSTOP SEMEN EXAMS 2018 FAMILY HISTORY Problem Relation Age of Onset Hyperlipidemia Father other (brain tumor) Paternal Uncle Social History Tobacco Use Smoking status: Former Packs/day: 1.00 Years: 10.00 Additional pack years: 0.00 Total pack years: 10.00 Types: Cigarettes Quit date: 03/17/2003 Years since quittin.2 Smokeless tobacco: Never Substance Use Topics Alcohol use: Yes Alcohol/week: 35.0 standard drinks of alcohol Types: 14 Mixed Drinks per week Drug use: Yes Types: Marijuana Objective BP 122/74 Pulse 96 Temp 36.1 C (97 F) Resp 16 Wt 92.5 kg (204 lb) SpO2 96% BMI 28.06 kg/m Physical Exam Vitals reviewed. Constitutional: Appearance: Normal appearance. HENT: Head: Normocephalic and atraumatic. Right Ear: Tympanic membrane, ear canal and external ear normal. Left Ear: Tympanic membrane, ear canal and external ear normal. Nose: Congestion present. Mouth/Throat: Mouth: Mucous membranes are moist. Pharynx: Oropharynx is clear. Cardiovascular: Rate and Rhythm: Normal rate and regular rhythm. Heart sounds: Normal heart sounds. Pulmonary: Effort: Pulmonary effort is normal. Breath sounds: Normal breath sounds. Musculoskeletal: Cervical back: Neck supple. Skin: General: Skin is warm and dry. Neurological: Mental Status: He is alert. Assessment and Plan ASSESSMENT/PLAN: 1. Sinus congestion - ICD9: 478.19, ICD10: R09.81 (primary diagnosis) Discussed I felt this was still viral at this point. Patient given prescription for Augmentin but told to wait a few days to see if this improves. Did recommend Flonase however patient did not want to use this as it has not worked in the past. I did give him 5 days of prednisone therefore. He declined further COVID flu RSV testing. Discussed red flag symptoms. Patient agreeable. 2. URI, acute - ICD9: 465.9, ICD10: J06.9 - Discussed viral etiology and rationale for treatment. - Symptomatic treatment with prn analgesia - Supportive care with fluids and rest Shilpi Mills PA-C documented in this encounter [facility] 04-08-2022 History of Presen t illness Narrative This is an Express Care eVisit note for Riamundo Schroeder eVisit/Questionnaire reviewed The chief complaint for the visit - Patient presents with: Sinus Problem Recommendations/Treatment plan - See My Chart Message to patient Johan Gaston PA-C documented in this encounter [facility] Evaluation note Diagnosis Sinus problem- Primary Unspecified sinusitis (chronic) documented in this encounter [facility] note* Diagnosis Sinus congestion- Primary Other diseases of nasal cavity and sinuses URI, acute Acute upper respiratory infections of unspecified site documented in this encounter [facility] note* Diagnosis Onset Date Resolution Status Preventative health care acu te Anal or rectal pain chronic Bilateral carpal tunnel syndrome chronic Right groin pain chronic [facility] Work Phone: Evaluation note* 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, bilateral documented in this encounter [facility] note* Diagnosis Neuroma- Primary 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 for referral (narrative)* Diagnostic Procedure Only (Routine) - Closed Specialty Diagnoses / Procedures [facility] To Contact XR IMAGING Diagnoses Neuroma Hammertoe, bilateral Procedures XR FOOT GENERAL 3V AP/LAT/OBL BILATERAL RADEX FOOT COMPLETE MINIMUM 3 VIEWS Veronica Pagan [address] [place] [address] [place] [address] Referral ID Status Reason Start Date Expiration Date V isits Requested Visits Authorized [id number] Closed Auto-Generate d Referral 06/15/2024 07/15/2025 1 1 [facility] for referral (narrative)* Diagnostic Procedure Only (Routine) - Authorized Specialty Diagnoses / Procedures Referred By Contadenike t Referred To Contact US IMAGING Diagnoses Neuroma Procedures US FOOT LEFT US COMPL JOINT R-T W/IMAGE DOCUMENTATION Veronica Pagan [address] [address] [place] [address] Referral ID Status Reason Start Date Expiration Date Visits Requested Visits Authorized [id number] Authorized Auto-Generat ed Referral 09/03/[address] [facility] for referral (narrative)* Diagnostic Procedure Only (Routine) - Closed Specialty Diagnoses / Procedures [facility] Referred To Contact US IMAGING Diagnoses Neuroma Procedures US FOOT LEFT US COMPL JOINT R-T W/IMAGE DOCUMENTATION Veronica Pagan [address] [place] [address] Us Imaging [facility] Referral ID Status Reason Start Date Expiration Date V isits Requested Visits Authorized [id number] Closed Auto-Generate d Referral 08/04/2024 09/03/2025 1 1 [facility] for visit Narrative* Diagnostic Procedure Only (Routine) - Closed Specialty Diagnoses / Procedures Referred By Albert t Referred To Contact XR IMAGING Diagnoses Neuroma Hammertoe, bilateral Procedures XR FOOT GENERAL 3V AP/LAT/OBL BILATERAL RADEX FOOT COMPLETE MINIMUM 3 VIEWS Veronica Pagan [address] [place] [address] [place] [address] Referral ID Status Reason Start Date Expiration Date V isits Requested Visits Authorized [id number] Closed Auto-Generate d Referral 06/15/2024 07/15/[address] [facility] for visit Narrative* Diagnostic Procedure Only (Routine) - Closed Specialty Diagnoses / Procedures [facility] Referred To Contact US IMAGING Diagnoses Neuroma Procedures US FOOT LEFT US COMPL JOINT R-T W/IMAGE DOCUMENTATION Veronica Pagan [address] [address] [place] [address] Referral ID Status Reason Start Date Expiration Date V isits Requested Visits Authorized [id number] Closed Auto-Generate d Referral 08/04/2024 09/03/2025 1 1 [facility] Summary Purpose Family History No Family History Records FoundNo Family History Records FoundNo Family History Records FoundNo Family History Records FoundNo Family History Records Found Advance Directives No Advanced Directives Records Found Advance Directive Response Recorded Date/ Time Living Will No June 07 7:40am Power of Time Clock Inspector No June 07, 2023 7:40am Chief Complaint and Reason for Visit Chief Complaint EST NEW PT - PPW SEN T Reason for Visit Preventative health care Anal or rectal pain Bilateral carpal tunnel syndrome Right groin pain Chief Complaint EST NEW PT - PPW SEN T BUE CARPAL TUNNEL SYNDROME BUE CARPAL TUNNEL SYNDROME Reason for Visit Preventative health care Anal or rectal pain Bilateral carpal tunnel syndrome Right groin pain Additional Source Comments (unrecognized sect ion and content) No Status Records FoundNo Status Records FoundNo Status Records FoundNo Status Records FoundNo Status Records Found INFORMATION SOURCE (unrecogn ized section and content) DATE CREATED AUTHOR 01/29/2018 [facility] DATE CREATED AUTHOR AUTHOR'S ORGANIZ ATION 11/10/2018 [facility] DATE CREATED AUTHOR AUTHOR'S ORGANIZ ATION 11/10/2018 [facility] dical Center DATE CREATED AUTHOR AUTHOR'S ORGANIZ ATION 10/01/[address] [facility] DATE CREATED AUTHOR AUTHOR'S ORGANIZ ATION 06/11/2025 [facility] Source Comments (unrecognize d section and content) In the event this informatio n is protected by the Federal Confidentiality of Alcohol and Drug Abuse Patient Records regulations: The Federal rules restrict any use of the information to criminally investigate or prosecute any alcohol or drug abuse patient.[facility] the event this information is protected by the Federal Confidentiality of Alcohol and Drug Abuse Patient Records regulations: The Federal rules restrict any use of the information to criminally investigate or prosecute any alcohol or drug abuse patient.[facility] the event this information is protected by the Federal Confidentiality of Alcohol and Drug Abuse Patient Records regulations: The Federal rules restrict any use of the information to criminally investigate or prosecute any alcohol or drug abuse patient.[facility] the event this information is protected by the Federal Confidentiality of Alcohol and Drug Abuse Patient Records regulations: The Federal rules restrict any use of the information to criminally investigate or prosecute any alcohol or drug abuse patient.[facility] the event this information is protected by the Federal Confidentiality of Alcohol and Drug Abuse Patient Records regulations: The Federal rules restrict any use of the information to criminally investigate or prosecute any alcohol or drug abuse patient.[facility] the event this information is protected by the Federal Confidentiality of Alcohol and Drug Abuse Patient Records regulations: The Federal rules restrict any use of the information to criminally investigate or prosecute any alcohol or drug abuse patient.[facility] the event this information is protected by the Federal Confidentiality of Alcohol and Drug Abuse Patient Records regulations: The Federal rules restrict any use of the information to criminally investigate or prosecute any alcohol or drug abuse patient.[facility] the event this information is protected by the Federal Confidentiality of Alcohol and Drug Abuse Patient Records regulations: The Federal rules restrict any use of the information to criminally investigate or prosecute any alcohol or drug abuse patient.[facility] the event this information is protected by the Federal Confidentiality of Alcohol and Drug Abuse Patient Records regulations: The Federal rules restrict any use of the information to criminally investigate or prosecute any alcohol or drug abuse patient.[facility] the event this information is protected by the Federal Confidentiality of Alcohol and Drug Abuse Patient Records regulations: The Federal rules restrict any use of the information to criminally investigate or prosecute any alcohol or drug abuse patient.[facility] Reason for Visit (unrecogniz ed section and content) Reason Comments Sinus Problem Reason Comments Sinus Problem sinus pressure, drai nage, headache and bodyaches x 5 days Reason Comments New Pain Burning Feet Reason Comments Appointment Reason Comments Established Patient Follow Up Reason Comments Puncture Wound L knee x today, nail went in knee, needs tetanus Reason Comments Follow Up Ultrasound results Care Teams (unrecognized sec tion and content) Clerical Investigator Relationship Specialty Start Date End Date Robina Blum MD [address], [place] [id number] PCP - General Family Practice 03/17/18 Clerical Investigator Relationship Specialty Start Date End Date Robina Blum MD [address], [place] [id number] PCP - General Family Medicine 03/17/18 Team Status: Active Member Role Status Dates No Primary Care Physician Family Provider Active Dr. Nic Samuels MD Primary Care Provider Active Team Status: Inactive Member Role Status Dates No Primary Care Physician Primary Care Provider, Refer ring Provider Active Dr. Nic Samuels MD Attending Provider Active Team Status: Inactive Member Role Status Dates Dr. Nic Samuels MD Primary Care P rufina, Attending Provider, Referring Provider Active Team Status: Active Member Role Status Dates Dr. Nic Samuels MD Primary Care P roollie, Referring Provider, Other Provider Active Dr. Katia Ventura MD Attending Provider Active Clerical Investigator Relationship Specialty Start Date End Date Robina Blum MD [address] [place] [address] PCP - General Family Medicine 03/17/18 Clerical Investigator Relationship Specialty Start Date End Date Robina Blum MD [address] [place] [address] PCP - General Family Medicine 03/17/18 Clerical Investigator Relationship Specialty Start Date End Date Robina Blum MD [address] [place] [address] PCP - General Family Medicine 03/17/18 Clerical Investigator Relationship Specialty Start Date End Date Robina Blum MD [address] [place] [address] PCP - General Family Medicine 03/17/18 PodlogarEwa APRN.GEOLOGICAL ENGINEERING TEACHER [address] [place] [address] Oceanologist Family Medicine 07/11/24 Clerical Investigator Relationship Specialty Start Date End Date Robina Blum MD [address] [place] [address] PCP - General Family Medicine 03/17/18 Podlogar, ILIANA Mcneil.GEOLOGICAL ENGINEERING TEACHER [address] [place] [address] Oceanologist Family Medicine 07/11/24 Clerical Investigator Relationship Specialty Start Date End Date Robina Blum MD [address] [place] [address] PCP - General [facility] 03/17/18 PodlogarEwa APRN.GEOLOGICAL ENGINEERING TEACHER [address], [place] [address] [facility] Clerical Investigator Relationship Specialty Start Date End Date Robina Blum MD [address], [place] [address] PCP - General [facility] 03/17/18 PodlogarEwa APRN.GEOLOGICAL ENGINEERING TEACHER [address], [place] [address] [facility] 07/11/24 Goals (unrecognized section and content) Goals may be documented in a n alternate sectionGoals may be documented in an alternate section FOR RECORDS PERTAINING TO PATIENTS WHO ARE OR HAVE BEEN ENROLLED IN A CHEMICAL DEPENDENCY/SUBSTANCEABUSE PROGRAM, SOME INFORMATION MAY BE OMITTED. This clinical summary was aggregated from multiple sources. Caution should be exercised in using it in the provision of clinical care. This summary normalizes information from multiple sources, and as a consequence, information in this document may materially change the coding, format and clinical context of patient data. In addition, data may be omitted in some cases. CLINICAL DECISIONS SHOULD BE BASED ON THE PRIMARY CLINICAL RECORDS. [facility] [employer] provides no warranty or guarantee of the accuracy or completeness of information in this document.
== END 2025-07-13 15:04 | disposition home or self-care (01) ==
LOC: SDC 12:16 → AC 12:16
PROVIDERS: PCP Internal Medicine; Referring Provider Orthopaedic Surgery; Visit Provider Orthopaedic Surgery
PROC: (CPT 64721; principal; 2025-07-13 13:30)
DX: G56.02 Carpal tunnel syndrome, left upper limb (principal); Z87.891 Personal history of nicotine dependence; E78.00 Pure hypercholesterolemia, unspecified
CPT/HCPCS: 64721; 01810; J2405